=== PATIENT | female | born 1950 | race Caucasian/White ===

== ENCOUNTER 2017-06-11 05:58 | Outpatient (RCR) | payer MEDICARE, MEDICAID ==
[2015-09-18 10:56] VITALS: BMI 42.7
[~2017-06-11 05:58] MED LIST: ACET-2043 PO; ALBU1.257 IH; ALBU2.5V36 NEB; ALPH1TAB PO; ALPH300T PO; ALPHA D GALACTOSIDASE PO; AMLO-96 PO; ASCO-201 PO; ASCO500C9 PO; ASPI-870 CHEW; ASPI81TA15 PO; ASPI81TA94 PO; AURYXIA PO; AZIT-18 PO; BUM2 PO; BUME1TAB19 PO; CAL25 PO; CAL667 PO; CALC0.2522 PO; CALC600T82 PO; CALC667T3 PO; CAR6.25 PO; CEFD300C35 PO; CHOL100062 PO; CHOL200021 PO; CHOL200022 PO; CIP500 PO; CIPDEXPT RIGHT EAR; CIPR-344 PO; CIPR500S3 PO; CRAN500T2 PO; CYAN100017; CYAN100088 PO; CYAN1TAB44 PO; CYAN25004; DEXTROSE 50% 50 ML SYR IVP PRN; DIA5 PO; DIAZ-308 PO; DIAZ2TAB74 PO; DOC100 PO; ERGO500025 PO; ESOM40CA42 PO; FERR210T; FISH OIL 500 M500 MG PO; FURO40TA35 PO; GOLYTE PO; GUAI600T57 PO; HYDR-3140 PO; HYDR-385 PO; HYDR2TAB74 PO; IBUP-136 PO; INSU100C12 SQ; INSU100I30 SQ; INSU100I30 SUBQ; INSU100I35 SQ; KRIL1CAP4 PO; LANT10002 PO; LID5T; LOPERAMIDE HCL 2 MG CAP PO PRN; LOR5/325 PO; MAGN400T37 PO; METH-543 PO; METH1TAB PO; METO25TA23 PO; MIDO5TAB20 PO; MULT-859 PO; MULT1TAB64 PO; NIT100 GT; NITR50CA35 PO; NOVOLOG SC; OMEG-24 PO; OMEG-36 PO; OMEG1CAP85 PO; OMEG500C5 PO; OMEG500C7 PO; OMEP-218 PO; OMEP20CA68 PO; ONDA4TAB PO; ONDA4TAB97 PO; OXYC-869 PO; OXYGENHOME INH; PRAV20TA66 PO; PRE50 PO; PRED-1 PO; PREG75CA60 PO; PROMETHAZINE HCL 25 MG TAB PO PRN; SEVE800T16 PO; SIM80 PO; SITA100T9 PO; SODI650T7 PO; SUCR500T PO; VITA-131 PO; VITA-175 PO; VITA400T PO; [UNRECOGNIZED DRUG - CODE] OU; [UNRECOGNIZED DRUG - CODE] PO; [UNRECOGNIZED DRUG - OTHER] PO
[2017-06-11] MEDS: HEPARIN (PORCINE) 1000 UNIT/ML (DIALYSIS) IVP PRN ×2 (10:51→10:52)
[2017-06-13] MEDS: HEPARIN (PORCINE) 1000 UNIT/ML (DIALYSIS) IVP PRN ×2 (10:49)
[2017-06-15] MEDS: HEPARIN (PORCINE) 1000 UNIT/ML (DIALYSIS) IVP PRN ×2 (11:01)
[2017-06-15] MEDS: DARBEPOETIN ESRD 25 MCG/ML IVP PRN (12:14)
[2017-06-18] MEDS: HEPARIN (PORCINE) 1000 UNIT/ML (DIALYSIS) IVP PRN ×2 (11:08)
[2017-06-20] MEDS: HEPARIN (PORCINE) 1000 UNIT/ML (DIALYSIS) IVP PRN ×2 (10:56)
[2017-06-22] MEDS: HEPARIN (PORCINE) 1000 UNIT/ML (DIALYSIS) IVP PRN ×2 (10:50→10:51)
[2017-06-25] MEDS: HEPARIN (PORCINE) 1000 UNIT/ML (DIALYSIS) IVP PRN ×2 (10:44→10:45)
[2017-06-27] MEDS: HEPARIN (PORCINE) 1000 UNIT/ML (DIALYSIS) IVP PRN ×2 (10:47)
[2017-06-27 12:02] LABS: PLATELET COUNT, AUTOMATED 114 K/uL (150-450)
[2017-06-29] MEDS: HEPARIN (PORCINE) 1000 UNIT/ML (DIALYSIS) IVP PRN ×2 (10:43)
[2017-06-29] MEDS: DARBEPOETIN ESRD 25 MCG/ML IVP PRN (11:31)
[2017-07-02] MEDS: HEPARIN (PORCINE) 1000 UNIT/ML (DIALYSIS) IVP PRN ×2 (10:51)
[2017-07-04] MEDS: HEPARIN (PORCINE) 1000 UNIT/ML (DIALYSIS) IVP PRN ×2 (10:43)
[2017-07-06] MEDS: HEPARIN (PORCINE) 1000 UNIT/ML (DIALYSIS) IVP PRN ×2 (10:43)
[2017-07-09] MEDS: HEPARIN (PORCINE) 1000 UNIT/ML (DIALYSIS) IVP PRN ×2 (10:48→10:49)
[2017-07-11] MEDS: HEPARIN (PORCINE) 1000 UNIT/ML (DIALYSIS) IVP PRN ×2 (10:48)
[2017-07-12] MEDS ORDERED: OXYC-865 PO (08:37)
[2017-07-25] MEDS: HEPARIN (PORCINE) 1000 UNIT/ML (DIALYSIS) IVP PRN ×2 (13:53)
[2017-07-27] MEDS: HEPARIN (PORCINE) 1000 UNIT/ML (DIALYSIS) IVP PRN ×2 (13:34→13:35)
[2017-07-27] MEDS: DARBEPOETIN ESRD 100 MCG/0.5ML SYR IVP PRN (14:00)
[2017-07-30] MEDS: HEPARIN (PORCINE) 1000 UNIT/ML (DIALYSIS) IVP PRN ×2 (12:13)
[2017-08-01] MEDS: HEPARIN (PORCINE) 1000 UNIT/ML (DIALYSIS) IVP PRN ×2 (12:16)
[2017-08-01 12:47] LABS: PLATELET COUNT, AUTOMATED 221 K/uL (150-450)
[2017-08-03] MEDS: HEPARIN (PORCINE) 1000 UNIT/ML (DIALYSIS) IVP PRN ×2 (12:09)
[2017-08-03] MEDS: DARBEPOETIN ESRD 100 MCG/0.5ML SYR IVP PRN (12:24)
[2017-08-06] MEDS: HEPARIN (PORCINE) 1000 UNIT/ML (DIALYSIS) IVP PRN ×2 (11:51)
[2017-08-08] MEDS: HEPARIN (PORCINE) 1000 UNIT/ML (DIALYSIS) IVP PRN ×2 (11:55)
[2017-08-10] MEDS: HEPARIN (PORCINE) 1000 UNIT/ML (DIALYSIS) IVP PRN ×2 (12:09→12:10)
[2017-08-10] MEDS: DARBEPOETIN ESRD 100 MCG/0.5ML SYR IVP PRN (13:06)
[2017-08-13] MEDS: HEPARIN (PORCINE) 1000 UNIT/ML (DIALYSIS) IVP PRN ×2 (12:01)
[2017-08-15] MEDS ORDERED: PREG25 PO (10:56)
[2017-08-15] MEDS: HEPARIN (PORCINE) 1000 UNIT/ML (DIALYSIS) IVP PRN ×2 (12:01)
[2017-08-17] MEDS: HEPARIN (PORCINE) 1000 UNIT/ML (DIALYSIS) IVP PRN ×2 (10:50→10:51)
[2017-08-17] MEDS: DARBEPOETIN ESRD 100 MCG/0.5ML SYR IVP PRN (11:30)
[2017-08-20] MEDS: HEPARIN (PORCINE) 1000 UNIT/ML (DIALYSIS) IVP PRN ×2 (11:11→11:12)
[2017-08-22] MEDS: HEPARIN (PORCINE) 1000 UNIT/ML (DIALYSIS) IVP PRN ×2 (10:53)
[2017-08-24] MEDS: HEPARIN (PORCINE) 1000 UNIT/ML (DIALYSIS) IVP PRN ×2 (10:45)
[2017-08-24] MEDS: DARBEPOETIN ESRD 100 MCG/0.5ML SYR IVP PRN (11:52)
[2017-08-27] MEDS: HEPARIN (PORCINE) 1000 UNIT/ML (DIALYSIS) IVP PRN ×2 (11:01)
[2017-08-29] MEDS: HEPARIN (PORCINE) 1000 UNIT/ML (DIALYSIS) IVP PRN ×2 (11:08)
[2017-08-29 11:36] LABS: PLATELET COUNT, AUTOMATED 158 K/uL (150-450)
[2017-08-31] MEDS: HEPARIN (PORCINE) 1000 UNIT/ML (DIALYSIS) IVP PRN ×2 (11:19→11:20)
[2017-08-31] MEDS: DARBEPOETIN ESRD 25 MCG/ML IVP PRN (12:21)
[2017-09-03] MEDS: HEPARIN (PORCINE) 1000 UNIT/ML (DIALYSIS) IVP PRN ×2 (11:01→11:02)
[2017-09-05] MEDS: HEPARIN (PORCINE) 1000 UNIT/ML (DIALYSIS) IVP PRN ×2 (11:14)
[2017-09-07] MEDS: HEPARIN (PORCINE) 1000 UNIT/ML (DIALYSIS) IVP PRN ×2 (11:09)
[2017-09-07] MEDS: DARBEPOETIN ESRD 25 MCG/ML IVP PRN (12:09)
[2017-09-10] MEDS: HEPARIN (PORCINE) 1000 UNIT/ML (DIALYSIS) IVP PRN ×2 (11:10→11:11)
[2017-09-12] MEDS: HEPARIN (PORCINE) 1000 UNIT/ML (DIALYSIS) IVP PRN ×2 (11:07→11:08)
[2017-09-14] MEDS: HEPARIN (PORCINE) 1000 UNIT/ML (DIALYSIS) IVP PRN ×2 (11:05→11:06)
[2017-09-17] MEDS: HEPARIN (PORCINE) 1000 UNIT/ML (DIALYSIS) IVP PRN ×2 (11:10→11:11)
[2017-09-19] MEDS: HEPARIN (PORCINE) 1000 UNIT/ML (DIALYSIS) IVP PRN ×2 (11:15)
[2017-09-21] MEDS: HEPARIN (PORCINE) 1000 UNIT/ML (DIALYSIS) IVP PRN ×2 (11:20)
[2017-09-24] MEDS: HEPARIN (PORCINE) 1000 UNIT/ML (DIALYSIS) IVP PRN ×2 (11:09→11:10)
[2017-09-26] MEDS: HEPARIN (PORCINE) 1000 UNIT/ML (DIALYSIS) IVP PRN ×2 (11:12)
[2017-09-26 11:45] LABS: PLATELET COUNT, AUTOMATED 130 K/uL (150-450)
[2017-09-28] MEDS: HEPARIN (PORCINE) 1000 UNIT/ML (DIALYSIS) IVP PRN ×2 (11:08)
[2017-10-01] MEDS: HEPARIN (PORCINE) 1000 UNIT/ML (DIALYSIS) IVP PRN ×2 (10:55)
[2017-10-03] MEDS: HEPARIN (PORCINE) 1000 UNIT/ML (DIALYSIS) IVP PRN ×2 (11:02)
[2017-10-03] MEDS: SODIUM FERRIC GLUC 62.5 MG/5ML IVP PRN (13:31)
[2017-10-05] MEDS: HEPARIN (PORCINE) 1000 UNIT/ML (DIALYSIS) IVP PRN ×2 (11:09)
[2017-10-08] MEDS: HEPARIN (PORCINE) 1000 UNIT/ML (DIALYSIS) IVP PRN ×2 (11:16)
[2017-10-10] MEDS: HEPARIN (PORCINE) 1000 UNIT/ML (DIALYSIS) IVP PRN ×2 (11:11)
[2017-10-12] MEDS: HEPARIN (PORCINE) 1000 UNIT/ML (DIALYSIS) IVP PRN ×2 (11:06)
[2017-10-15] MEDS: HEPARIN (PORCINE) 1000 UNIT/ML (DIALYSIS) IVP PRN ×2 (11:16)
[2017-10-17] MEDS: HEPARIN (PORCINE) 1000 UNIT/ML (DIALYSIS) IVP PRN ×2 (11:23)
[2017-10-17 12:33] LABS: PLATELET COUNT, AUTOMATED 113 K/uL (150-450)
[2017-10-17] MEDS: SODIUM FERRIC GLUC 62.5 MG/5ML IVP PRN (12:56)
[2017-10-19] MEDS: HEPARIN (PORCINE) 1000 UNIT/ML (DIALYSIS) IVP PRN ×2 (11:23)
[2017-10-22] MEDS: HEPARIN (PORCINE) 1000 UNIT/ML (DIALYSIS) IVP PRN ×2 (11:16→11:17)
[2017-10-24] MEDS: HEPARIN (PORCINE) 1000 UNIT/ML (DIALYSIS) IVP PRN ×2 (11:08)
[2017-10-26] MEDS: HEPARIN (PORCINE) 1000 UNIT/ML (DIALYSIS) IVP PRN ×2 (11:15)
[2017-10-29] MEDS: HEPARIN (PORCINE) 1000 UNIT/ML (DIALYSIS) IVP PRN ×2 (11:06→11:07)
[2017-10-31] MEDS: HEPARIN (PORCINE) 1000 UNIT/ML (DIALYSIS) IVP PRN ×2 (11:03)
[2017-10-31] MEDS: SODIUM FERRIC GLUC 62.5 MG/5ML IVP PRN (12:29)
[2017-11-02] MEDS: HEPARIN (PORCINE) 1000 UNIT/ML (DIALYSIS) IVP PRN ×2 (11:10→11:11)
[2017-11-05] MEDS: HEPARIN (PORCINE) 1000 UNIT/ML (DIALYSIS) IVP PRN ×2 (11:13)
[2017-11-07] MEDS: HEPARIN (PORCINE) 1000 UNIT/ML (DIALYSIS) IVP PRN ×2 (11:11)
[2017-11-09] MEDS: HEPARIN (PORCINE) 1000 UNIT/ML (DIALYSIS) IVP PRN ×2 (11:00)
[2017-11-09] MEDS: DARBEPOETIN ESRD 25 MCG/ML IVP PRN (13:04)
[2017-11-12] MEDS: HEPARIN (PORCINE) 1000 UNIT/ML (DIALYSIS) IVP PRN ×2 (11:01)
[2017-11-14] MEDS: HEPARIN (PORCINE) 1000 UNIT/ML (DIALYSIS) IVP PRN ×2 (10:58)
[2017-11-14] MEDS: SODIUM FERRIC GLUC 62.5 MG/5ML IVP PRN (12:25)
[2017-11-16] MEDS: HEPARIN (PORCINE) 1000 UNIT/ML (DIALYSIS) IVP PRN ×2 (11:10)
[2017-11-19] MEDS: HEPARIN (PORCINE) 1000 UNIT/ML (DIALYSIS) IVP PRN ×2 (11:07)
[2017-11-21] MEDS: HEPARIN (PORCINE) 1000 UNIT/ML (DIALYSIS) IVP PRN ×2 (10:59→11:00)
[2017-11-21 13:25] LABS: PLATELET COUNT, AUTOMATED 116 K/uL (150-450)
[2017-11-23] MEDS: HEPARIN (PORCINE) 1000 UNIT/ML (DIALYSIS) IVP PRN ×2 (11:19)
[2017-11-23] MEDS: DARBEPOETIN ESRD 25 MCG/ML IVP PRN (12:30)
[2017-11-26] MEDS: HEPARIN (PORCINE) 1000 UNIT/ML (DIALYSIS) IVP PRN ×2 (11:10)
== END 2017-11-26 12:00 | disposition home or self-care (01) ==
LOC: DIAL 05:58
PROVIDERS: ATTEND Internal Medicine Nephrology
DX: I13.2 Hypertensive heart and chronic kidney disease with heart failure and with stage 5 chronic kidney disease, or end stage renal disease (principal); N18.6 End stage renal disease; I95.3 Hypotension of hemodialysis; D63.1 Anemia in chronic kidney disease; I50.30 Unspecified diastolic (congestive) heart failure; Z93.3 Colostomy status; N25.81 Secondary hyperparathyroidism of renal origin; E46 Unspecified protein-calorie malnutrition; E66.9 Obesity, unspecified; Z99.2 Dependence on renal dialysis; Z68.38 Body mass index [BMI] 38.0-38.9, adult; G47.33 Obstructive sleep apnea (adult) (pediatric); E11.22 Type 2 diabetes mellitus with diabetic chronic kidney disease; Z79.4 Long term (current) use of insulin
CPT/HCPCS: 82040; 82108; 82247; 82310; 82374; 82465; 82565; 82728; 82947; 83036; 83540; 83550; 83970; 84075; 84100; 84132; 84295; 84460; 84478; 84520; 85018; 85025; 86580; 86706; 87340; 90999; A4657; G0472; J0882; J2916; 86803

== ENCOUNTER → 2017-06-11 09:26 | Outpatient (RCR) | payer MEDICARE, MEDICAID ==
[2015-09-18 10:56] VITALS: Ht 160 cm; Wt 101.9 kg
[2016-06-12] MEDS: HEPARIN (PORCINE) 1000 UNIT/ML (DIALYSIS) IVP PRN ×2 (13:33)
[2016-06-14] MEDS: HEPARIN (PORCINE) 1000 UNIT/ML (DIALYSIS) IVP PRN ×2 (13:30)
[2016-06-16] MEDS: HEPARIN (PORCINE) 1000 UNIT/ML (DIALYSIS) IVP PRN ×2 (13:24→13:25)
[2016-06-19] MEDS: HEPARIN (PORCINE) 1000 UNIT/ML (DIALYSIS) IVP PRN ×2 (13:36)
[2016-06-21] MEDS: HEPARIN (PORCINE) 1000 UNIT/ML (DIALYSIS) IVP PRN ×2 (13:31→13:32)
[2016-06-21 14:51] LABS: PLATELET COUNT, AUTOMATED 146 K/uL (150-450)
[2016-06-23] MEDS: HEPARIN (PORCINE) 1000 UNIT/ML (DIALYSIS) IVP PRN ×2 (13:35)
[2016-06-26] MEDS: HEPARIN (PORCINE) 1000 UNIT/ML (DIALYSIS) IVP PRN ×2 (13:39)
[2016-06-28] MEDS: HEPARIN (PORCINE) 1000 UNIT/ML (DIALYSIS) IVP PRN ×2 (13:33)
[2016-06-30] MEDS: HEPARIN (PORCINE) 1000 UNIT/ML (DIALYSIS) IVP PRN ×2 (13:35)
[2016-07-03] MEDS: HEPARIN (PORCINE) 1000 UNIT/ML (DIALYSIS) IVP PRN ×2 (13:55)
[2016-07-05] MEDS: HEPARIN (PORCINE) 1000 UNIT/ML (DIALYSIS) IVP PRN ×2 (13:58)
[2016-07-07] MEDS: HEPARIN (PORCINE) 1000 UNIT/ML (DIALYSIS) IVP PRN ×2 (13:23)
[2016-07-10] MEDS: HEPARIN (PORCINE) 1000 UNIT/ML (DIALYSIS) IVP PRN ×2 (13:33→13:34)
[2016-07-12] MEDS: HEPARIN (PORCINE) 1000 UNIT/ML (DIALYSIS) IVP PRN ×2 (13:41)
[2016-07-14] MEDS: HEPARIN (PORCINE) 1000 UNIT/ML (DIALYSIS) IVP PRN ×2 (13:33)
[2016-07-17] MEDS: HEPARIN (PORCINE) 1000 UNIT/ML (DIALYSIS) IVP PRN ×2 (13:56)
[2016-07-19] MEDS: HEPARIN (PORCINE) 1000 UNIT/ML (DIALYSIS) IVP PRN ×2 (13:38→13:39)
[2016-07-21] MEDS: HEPARIN (PORCINE) 1000 UNIT/ML (DIALYSIS) IVP PRN ×2 (13:32)
[2016-07-24] MEDS: HEPARIN (PORCINE) 1000 UNIT/ML (DIALYSIS) IVP PRN ×2 (13:37→13:38)
[2016-07-26] MEDS: HEPARIN (PORCINE) 1000 UNIT/ML (DIALYSIS) IVP PRN ×2 (14:08)
[2016-07-26 15:14] LABS: PLATELET COUNT, AUTOMATED 163 K/uL (150-450)
[2016-07-28] MEDS: HEPARIN (PORCINE) 1000 UNIT/ML (DIALYSIS) IVP PRN ×2 (13:29)
[2016-07-31] MEDS: HEPARIN (PORCINE) 1000 UNIT/ML (DIALYSIS) IVP PRN ×2 (13:32)
[2016-08-02] MEDS: HEPARIN (PORCINE) 1000 UNIT/ML (DIALYSIS) IVP PRN ×2 (13:25)
[2016-08-04] MEDS: HEPARIN (PORCINE) 1000 UNIT/ML (DIALYSIS) IVP PRN ×2 (13:31)
[2016-08-07] MEDS: HEPARIN (PORCINE) 1000 UNIT/ML (DIALYSIS) IVP PRN ×2 (13:36)
[2016-08-09] MEDS: HEPARIN (PORCINE) 1000 UNIT/ML (DIALYSIS) IVP PRN ×2 (13:40)
[2016-08-11] MEDS: HEPARIN (PORCINE) 1000 UNIT/ML (DIALYSIS) IVP PRN ×2 (13:31)
[2016-08-14] MEDS: HEPARIN (PORCINE) 1000 UNIT/ML (DIALYSIS) IVP PRN ×2 (13:29)
[2016-08-16] MEDS: HEPARIN (PORCINE) 1000 UNIT/ML (DIALYSIS) IVP PRN ×2 (13:33→13:34)
[2016-08-18] MEDS: HEPARIN (PORCINE) 1000 UNIT/ML (DIALYSIS) IVP PRN ×2 (13:44)
[2016-08-21] MEDS: HEPARIN (PORCINE) 1000 UNIT/ML (DIALYSIS) IVP PRN ×2 (13:42)
[2016-08-23] MEDS: HEPARIN (PORCINE) 1000 UNIT/ML (DIALYSIS) IVP PRN ×2 (13:48→13:49)
[2016-08-23 14:33] LABS: PLATELET COUNT, AUTOMATED 155 K/uL (150-450)
[2016-08-25] MEDS: HEPARIN (PORCINE) 1000 UNIT/ML (DIALYSIS) IVP PRN ×2 (13:28→13:29)
[2016-08-28] MEDS: HEPARIN (PORCINE) 1000 UNIT/ML (DIALYSIS) IVP PRN ×2 (13:25)
[2016-08-30] MEDS: HEPARIN (PORCINE) 1000 UNIT/ML (DIALYSIS) IVP PRN ×2 (13:40)
[2016-09-01] MEDS: HEPARIN (PORCINE) 1000 UNIT/ML (DIALYSIS) IVP PRN ×2 (13:32→13:33)
[2016-09-04] MEDS: HEPARIN (PORCINE) 1000 UNIT/ML (DIALYSIS) IVP PRN ×2 (13:27)
[2016-09-06] MEDS: HEPARIN (PORCINE) 1000 UNIT/ML (DIALYSIS) IVP PRN ×2 (13:35)
[2016-09-08] MEDS: HEPARIN (PORCINE) 1000 UNIT/ML (DIALYSIS) IVP PRN ×2 (13:52)
[2016-09-11] MEDS: HEPARIN (PORCINE) 1000 UNIT/ML (DIALYSIS) IVP PRN ×2 (14:01→14:02)
[2016-09-13] MEDS: HEPARIN (PORCINE) 1000 UNIT/ML (DIALYSIS) IVP PRN ×2 (13:47)
[2016-09-15] MEDS: HEPARIN (PORCINE) 1000 UNIT/ML (DIALYSIS) IVP PRN ×2 (13:41)
[2016-09-18] MEDS: HEPARIN (PORCINE) 1000 UNIT/ML (DIALYSIS) IVP PRN ×2 (13:42→13:43)
[2016-09-20] MEDS: HEPARIN (PORCINE) 1000 UNIT/ML (DIALYSIS) IVP PRN ×2 (13:36)
[2016-09-22] MEDS: HEPARIN (PORCINE) 1000 UNIT/ML (DIALYSIS) IVP PRN ×2 (13:35)
[2016-09-25] MEDS: HEPARIN (PORCINE) 1000 UNIT/ML (DIALYSIS) IVP PRN ×2 (13:30→13:31)
[2016-09-27] MEDS: HEPARIN (PORCINE) 1000 UNIT/ML (DIALYSIS) IVP PRN ×2 (10:47)
[2016-09-27 11:58] LABS: PLATELET COUNT, AUTOMATED 151 K/uL (150-450)
[2016-09-29] MEDS: HEPARIN (PORCINE) 1000 UNIT/ML (DIALYSIS) IVP PRN ×2 (11:27)
[2016-10-02] MEDS: HEPARIN (PORCINE) 1000 UNIT/ML (DIALYSIS) IVP PRN ×2 (13:35→13:36)
[2016-10-04] MEDS: HEPARIN (PORCINE) 1000 UNIT/ML (DIALYSIS) IVP PRN ×2 (13:41)
[2016-10-06] MEDS: HEPARIN (PORCINE) 1000 UNIT/ML (DIALYSIS) IVP PRN ×2 (13:38)
[2016-10-09] MEDS: HEPARIN (PORCINE) 1000 UNIT/ML (DIALYSIS) IVP PRN ×2 (13:36)
[2016-10-11] MEDS: HEPARIN (PORCINE) 1000 UNIT/ML (DIALYSIS) IVP PRN ×2 (13:41)
[2016-10-13] MEDS: HEPARIN (PORCINE) 1000 UNIT/ML (DIALYSIS) IVP PRN ×2 (13:31)
[2016-10-16] MEDS: HEPARIN (PORCINE) 1000 UNIT/ML (DIALYSIS) IVP PRN ×2 (13:44)
[2016-10-18] MEDS: HEPARIN (PORCINE) 1000 UNIT/ML (DIALYSIS) IVP PRN ×2 (13:40→13:41)
[2016-10-20] MEDS: HEPARIN (PORCINE) 1000 UNIT/ML (DIALYSIS) IVP PRN ×2 (13:35)
[2016-10-23] MEDS: HEPARIN (PORCINE) 1000 UNIT/ML (DIALYSIS) IVP PRN ×2 (13:08)
[2016-10-25] MEDS: HEPARIN (PORCINE) 1000 UNIT/ML (DIALYSIS) IVP PRN ×2 (13:02)
[2016-10-27] MEDS: HEPARIN (PORCINE) 1000 UNIT/ML (DIALYSIS) IVP PRN ×2 (09:53→09:54)
[2016-10-30] MEDS: HEPARIN (PORCINE) 1000 UNIT/ML (DIALYSIS) IVP PRN ×2 (13:28→13:29)
[2016-11-01] MEDS: HEPARIN (PORCINE) 1000 UNIT/ML (DIALYSIS) IVP PRN ×2 (13:25)
[2016-11-01 14:27] LABS: PLATELET COUNT, AUTOMATED 159 K/uL (150-450)
[2016-11-03] MEDS: HEPARIN (PORCINE) 1000 UNIT/ML (DIALYSIS) IVP PRN ×2 (14:59)
[2016-11-06] MEDS: HEPARIN (PORCINE) 1000 UNIT/ML (DIALYSIS) IVP PRN ×2 (10:05)
[2016-11-08] MEDS: HEPARIN (PORCINE) 1000 UNIT/ML (DIALYSIS) IVP PRN ×2 (10:12)
[2016-11-10] MEDS: HEPARIN (PORCINE) 1000 UNIT/ML (DIALYSIS) IVP PRN ×2 (09:52)
[2016-11-13] MEDS: HEPARIN (PORCINE) 1000 UNIT/ML (DIALYSIS) IVP PRN ×2 (10:01)
[2016-11-15] MEDS: HEPARIN (PORCINE) 1000 UNIT/ML (DIALYSIS) IVP PRN ×2 (10:15)
[2016-11-17] MEDS: HEPARIN (PORCINE) 1000 UNIT/ML (DIALYSIS) IVP PRN ×2 (10:11)
[2016-11-20] MEDS: HEPARIN (PORCINE) 1000 UNIT/ML (DIALYSIS) IVP PRN ×2 (10:09)
[2016-11-22] MEDS: HEPARIN (PORCINE) 1000 UNIT/ML (DIALYSIS) IVP PRN ×2 (10:19)
[2016-11-22 10:54] LABS: PLATELET COUNT, AUTOMATED 133 K/uL (150-450)
[2016-11-24] MEDS: HEPARIN (PORCINE) 1000 UNIT/ML (DIALYSIS) IVP PRN ×2 (10:16→10:20)
[2016-11-27] MEDS: HEPARIN (PORCINE) 1000 UNIT/ML (DIALYSIS) IVP PRN ×2 (10:10)
[2016-11-29] MEDS: HEPARIN (PORCINE) 1000 UNIT/ML (DIALYSIS) IVP PRN ×2 (10:21)
[2016-12-18] MEDS: HEPARIN (PORCINE) 1000 UNIT/ML (DIALYSIS) IVP PRN ×2 (10:13→10:14)
[2016-12-20] MEDS: HEPARIN (PORCINE) 1000 UNIT/ML (DIALYSIS) IVP PRN ×2 (10:14)
[2016-12-22] MEDS: HEPARIN (PORCINE) 1000 UNIT/ML (DIALYSIS) IVP PRN ×2 (10:13)
[2016-12-25] MEDS: HEPARIN (PORCINE) 1000 UNIT/ML (DIALYSIS) IVP PRN ×2 (10:21)
[2016-12-27] MEDS: HEPARIN (PORCINE) 1000 UNIT/ML (DIALYSIS) IVP PRN ×2 (10:13)
[2016-12-27 10:55] LABS: PLATELET COUNT, AUTOMATED 147 K/uL (150-450)
[2016-12-29] MEDS: HEPARIN (PORCINE) 1000 UNIT/ML (DIALYSIS) IVP PRN ×2 (10:15)
[2017-01-01] MEDS: HEPARIN (PORCINE) 1000 UNIT/ML (DIALYSIS) IVP PRN ×2 (10:12)
[2017-01-03] MEDS: HEPARIN (PORCINE) 1000 UNIT/ML (DIALYSIS) IVP PRN ×2 (10:17→10:18)
[2017-01-05] MEDS: HEPARIN (PORCINE) 1000 UNIT/ML (DIALYSIS) IVP PRN ×2 (10:05→10:06)
[2017-01-08] MEDS: HEPARIN (PORCINE) 1000 UNIT/ML (DIALYSIS) IVP PRN ×2 (10:09)
[2017-01-10] MEDS: HEPARIN (PORCINE) 1000 UNIT/ML (DIALYSIS) IVP PRN ×2 (10:20→10:21)
[2017-01-12] MEDS: HEPARIN (PORCINE) 1000 UNIT/ML (DIALYSIS) IVP PRN ×2 (10:15→10:16)
[2017-01-12] MEDS: DARBEPOETIN ESRD 25 MCG/ML IVP PRN (13:01)
[2017-01-15] MEDS: HEPARIN (PORCINE) 1000 UNIT/ML (DIALYSIS) IVP PRN ×2 (10:13→10:14)
[2017-01-17] MEDS: HEPARIN (PORCINE) 1000 UNIT/ML (DIALYSIS) IVP PRN ×2 (10:12)
[2017-01-19] MEDS: HEPARIN (PORCINE) 1000 UNIT/ML (DIALYSIS) IVP PRN ×2 (10:08)
[2017-01-19] MEDS: DARBEPOETIN ESRD 25 MCG/ML IVP PRN (10:40)
[2017-01-22] MEDS: HEPARIN (PORCINE) 1000 UNIT/ML (DIALYSIS) IVP PRN ×2 (10:15)
[2017-01-24] MEDS: HEPARIN (PORCINE) 1000 UNIT/ML (DIALYSIS) IVP PRN ×2 (10:20)
[2017-01-24 11:04] LABS: PLATELET COUNT, AUTOMATED 119 K/uL (150-450)
[2017-01-26] MEDS: HEPARIN (PORCINE) 1000 UNIT/ML (DIALYSIS) IVP PRN ×2 (10:19)
[2017-01-29] MEDS: HEPARIN (PORCINE) 1000 UNIT/ML (DIALYSIS) IVP PRN ×2 (10:06)
[2017-01-31] MEDS: HEPARIN (PORCINE) 1000 UNIT/ML (DIALYSIS) IVP PRN ×2 (10:22)
[2017-02-02] MEDS: HEPARIN (PORCINE) 1000 UNIT/ML (DIALYSIS) IVP PRN ×2 (10:16)
[2017-02-02] MEDS: DARBEPOETIN ESRD 25 MCG/ML IVP PRN (10:57)
[2017-02-05] MEDS: HEPARIN (PORCINE) 1000 UNIT/ML (DIALYSIS) IVP PRN ×2 (10:14→10:15)
[2017-02-07] MEDS: HEPARIN (PORCINE) 1000 UNIT/ML (DIALYSIS) IVP PRN ×2 (10:08)
[2017-02-09] MEDS: HEPARIN (PORCINE) 1000 UNIT/ML (DIALYSIS) IVP PRN ×2 (10:21)
[2017-02-12] MEDS: HEPARIN (PORCINE) 1000 UNIT/ML (DIALYSIS) IVP PRN ×2 (10:09)
[2017-02-14] MEDS: HEPARIN (PORCINE) 1000 UNIT/ML (DIALYSIS) IVP PRN ×2 (10:12→10:13)
[2017-02-16] MEDS: HEPARIN (PORCINE) 1000 UNIT/ML (DIALYSIS) IVP PRN ×2 (10:11)
[2017-02-16] MEDS: DARBEPOETIN ESRD 25 MCG/ML IVP PRN (11:57)
[2017-02-19] MEDS: HEPARIN (PORCINE) 1000 UNIT/ML (DIALYSIS) IVP PRN ×2 (10:09→10:10)
[2017-02-21] MEDS: HEPARIN (PORCINE) 1000 UNIT/ML (DIALYSIS) IVP PRN ×2 (10:11)
[2017-02-21 10:36] LABS: PLATELET COUNT, AUTOMATED 164 K/uL (150-450)
[2017-02-23] MEDS: HEPARIN (PORCINE) 1000 UNIT/ML (DIALYSIS) IVP PRN ×2 (10:17)
[2017-02-26] MEDS: HEPARIN (PORCINE) 1000 UNIT/ML (DIALYSIS) IVP PRN ×2 (10:11)
[2017-02-28] MEDS: HEPARIN (PORCINE) 1000 UNIT/ML (DIALYSIS) IVP PRN ×2 (10:10)
[2017-03-02] MEDS: HEPARIN (PORCINE) 1000 UNIT/ML (DIALYSIS) IVP PRN ×2 (10:12)
[2017-03-05] MEDS: HEPARIN (PORCINE) 1000 UNIT/ML (DIALYSIS) IVP PRN ×2 (10:13)
[2017-03-07] MEDS: HEPARIN (PORCINE) 1000 UNIT/ML (DIALYSIS) IVP PRN ×2 (10:05)
[2017-03-09] MEDS: HEPARIN (PORCINE) 1000 UNIT/ML (DIALYSIS) IVP PRN ×2 (10:21→10:22)
[2017-03-12] MEDS: HEPARIN (PORCINE) 1000 UNIT/ML (DIALYSIS) IVP PRN ×2 (10:15)
[2017-03-14] MEDS: HEPARIN (PORCINE) 1000 UNIT/ML (DIALYSIS) IVP PRN ×2 (11:48)
[2017-03-16] MEDS: HEPARIN (PORCINE) 1000 UNIT/ML (DIALYSIS) IVP PRN ×2 (12:08→12:09)
[2017-03-19] MEDS: HEPARIN (PORCINE) 1000 UNIT/ML (DIALYSIS) IVP PRN ×2 (12:02)
[2017-03-21] MEDS: HEPARIN (PORCINE) 1000 UNIT/ML (DIALYSIS) IVP PRN ×2 (12:03)
[2017-03-23] MEDS: HEPARIN (PORCINE) 1000 UNIT/ML (DIALYSIS) IVP PRN ×2 (11:57)
[2017-03-26] MEDS: HEPARIN (PORCINE) 1000 UNIT/ML (DIALYSIS) IVP PRN ×2 (12:12)
[2017-03-28] MEDS: HEPARIN (PORCINE) 1000 UNIT/ML (DIALYSIS) IVP PRN ×2 (12:01)
[2017-03-28 12:45] LABS: PLATELET COUNT, AUTOMATED 126 K/uL (150-450)
[2017-03-30] MEDS: HEPARIN (PORCINE) 1000 UNIT/ML (DIALYSIS) IVP PRN ×2 (11:57)
[2017-04-02] MEDS: HEPARIN (PORCINE) 1000 UNIT/ML (DIALYSIS) IVP PRN ×2 (12:06)
[2017-04-04] MEDS: HEPARIN (PORCINE) 1000 UNIT/ML (DIALYSIS) IVP PRN ×2 (12:24)
[2017-04-06] MEDS: HEPARIN (PORCINE) 1000 UNIT/ML (DIALYSIS) IVP PRN ×2 (12:09→12:10)
[2017-04-09] MEDS: HEPARIN (PORCINE) 1000 UNIT/ML (DIALYSIS) IVP PRN ×2 (12:00)
[2017-04-11] MEDS: HEPARIN (PORCINE) 1000 UNIT/ML (DIALYSIS) IVP PRN ×2 (11:05)
[2017-04-13] MEDS: HEPARIN (PORCINE) 1000 UNIT/ML (DIALYSIS) IVP PRN ×2 (11:05→11:06)
[2017-04-16] MEDS: HEPARIN (PORCINE) 1000 UNIT/ML (DIALYSIS) IVP PRN ×2 (10:57)
[2017-04-18] MEDS: HEPARIN (PORCINE) 1000 UNIT/ML (DIALYSIS) IVP PRN ×2 (10:53)
[2017-04-20] MEDS: HEPARIN (PORCINE) 1000 UNIT/ML (DIALYSIS) IVP PRN ×2 (10:54)
[2017-04-23] MEDS: HEPARIN (PORCINE) 1000 UNIT/ML (DIALYSIS) IVP PRN ×2 (10:59)
[2017-04-25] MEDS: HEPARIN (PORCINE) 1000 UNIT/ML (DIALYSIS) IVP PRN ×2 (11:00)
[2017-04-27] MEDS: HEPARIN (PORCINE) 1000 UNIT/ML (DIALYSIS) IVP PRN ×2 (10:46)
[2017-04-30] MEDS: HEPARIN (PORCINE) 1000 UNIT/ML (DIALYSIS) IVP PRN ×2 (11:02)
[2017-05-02] MEDS: HEPARIN (PORCINE) 1000 UNIT/ML (DIALYSIS) IVP PRN ×2 (10:51)
[2017-05-02 12:16] LABS: PLATELET COUNT, AUTOMATED 136 K/uL (150-450)
[2017-05-05] MEDS: HEPARIN (PORCINE) 1000 UNIT/ML (DIALYSIS) IVP PRN ×2 (10:51)
[2017-05-07] MEDS: HEPARIN (PORCINE) 1000 UNIT/ML (DIALYSIS) IVP PRN ×2 (10:53)
[2017-05-09] MEDS: HEPARIN (PORCINE) 1000 UNIT/ML (DIALYSIS) IVP PRN ×2 (10:52)
[2017-05-11] MEDS: HEPARIN (PORCINE) 1000 UNIT/ML (DIALYSIS) IVP PRN ×2 (10:56→10:57)
[2017-05-14] MEDS: HEPARIN (PORCINE) 1000 UNIT/ML (DIALYSIS) IVP PRN ×2 (10:51)
[2017-05-16] MEDS: HEPARIN (PORCINE) 1000 UNIT/ML (DIALYSIS) IVP PRN ×2 (11:01)
[2017-05-16 11:40] LABS: PLATELET COUNT, AUTOMATED 124 K/uL (150-450)
[2017-05-18] MEDS: HEPARIN (PORCINE) 1000 UNIT/ML (DIALYSIS) IVP PRN ×2 (10:50→10:51)
[2017-05-21] MEDS: HEPARIN (PORCINE) 1000 UNIT/ML (DIALYSIS) IVP PRN ×2 (10:50)
[2017-05-23] MEDS: HEPARIN (PORCINE) 1000 UNIT/ML (DIALYSIS) IVP PRN ×2 (10:50)
[2017-05-25] MEDS: HEPARIN (PORCINE) 1000 UNIT/ML (DIALYSIS) IVP PRN ×2 (10:48)
[2017-05-28] MEDS: HEPARIN (PORCINE) 1000 UNIT/ML (DIALYSIS) IVP PRN ×2 (10:57)
[2017-05-30] MEDS: HEPARIN (PORCINE) 1000 UNIT/ML (DIALYSIS) IVP PRN ×2 (10:55)
[2017-06-01] MEDS: HEPARIN (PORCINE) 1000 UNIT/ML (DIALYSIS) IVP PRN ×2 (10:57)
[2017-06-03] MEDS: HEPARIN (PORCINE) 1000 UNIT/ML (DIALYSIS) IVP PRN ×2 (10:47)
[2017-06-06] MEDS: HEPARIN (PORCINE) 1000 UNIT/ML (DIALYSIS) IVP PRN ×2 (11:03)
[2017-06-08] MEDS: HEPARIN (PORCINE) 1000 UNIT/ML (DIALYSIS) IVP PRN ×2 (10:50)
[~2017-06-11] VITALS: Ht 160 cm; Wt 101.9 kg
[~2017-06-11 09:26] MED LIST changes: +ALTEPLASE RECOMB 2 MG VIAL IVP PRN; +ASPI-816 CHEW; -ASPI-870 CHEW; +DARBEPOETIN ESRD 25 MCG/ML IVP PRN; +HEPARIN (PORCINE) 1000 UNIT/ML (DIALYSIS) IVP PRN; -IBUP-136 PO; +IBUP200C71 PO; +INFLUENZA VIRUS VAC 0.5 ML SYR IM ONLY ONE; +WATER STERILE 10 ML VIAL IVP PRN; +[UNRECOGNIZED DRUG - OTHER] IVP PRN
== END | disposition home or self-care (01) ==
LOC: DIAL 06-09 08:44
PROVIDERS: ATTEND Internal Medicine Nephrology
DX: I13.2 Hypertensive heart and chronic kidney disease with heart failure and with stage 5 chronic kidney disease, or end stage renal disease (principal); N18.6 End stage renal disease; Z99.2 Dependence on renal dialysis; D63.1 Anemia in chronic kidney disease; I50.32 Chronic diastolic (congestive) heart failure; G47.33 Obstructive sleep apnea (adult) (pediatric); E83.39 Other disorders of phosphorus metabolism; E78.5 Hyperlipidemia, unspecified; Z79.899 Other long term (current) drug therapy; E46 Unspecified protein-calorie malnutrition; E83.52 Hypercalcemia; E11.29 Type 2 diabetes mellitus with other diabetic kidney complication; G60.3 Idiopathic progressive neuropathy; Z23 Encounter for immunization
CPT/HCPCS: 82040; 82108; 82247; 82310; 82374; 82465; 82565; 82728; 82947; 83036; 83540; 83550; 83970; 84075; 84100; 84132; 84295; 84460; 84478; 84520; 85018; 85025; 86580; 86706; 87340; 90999; A4657; G0008; G0472; J0882; Q2037; 86803; 90658; 90674

== ENCOUNTER → 2017-07-05 | Outpatient (CLI) | payer MEDICARE, MEDICAID ==
[2015-09-18 10:56] VITALS: BMI 42.7
[~2017-07-05] MED LIST changes: -ALTEPLASE RECOMB 2 MG VIAL IVP PRN; -DARBEPOETIN ESRD 25 MCG/ML IVP PRN; -DEXTROSE 50% 50 ML SYR IVP PRN; -HEPARIN (PORCINE) 1000 UNIT/ML (DIALYSIS) IVP PRN; -INFLUENZA VIRUS VAC 0.5 ML SYR IM ONLY ONE; -LOPERAMIDE HCL 2 MG CAP PO PRN; -PROMETHAZINE HCL 25 MG TAB PO PRN; -WATER STERILE 10 ML VIAL IVP PRN; -[UNRECOGNIZED DRUG - OTHER] IVP PRN
--- NOTE | 2017-07-05 14:16 | RADIOLOGY IMAGING REPORT ---
[place] [facility] [place] Lizbeth Madrdi : 1950 MR: [id number] V: [id number] EXAM DATE: ORDERING PHYSICIAN: SHARONA FOY TECHNOLOGIST: Location: [facility] Patient: Lizbeth Madrid : 1950 Visit/Account:[id number] Date of Sevice: 07/05/2017 Exam type: THORACIC SPINE 3 VIEWS History: Back pain over T3-4 Comparison: CT of the thoracic spine July 02, 2016 Findings: There is no evidence of acute fracture or subluxation in the thoracic spine. The upper thoracic spin e is not ideally visualized due to patient rotation on the lateral view. There appear to be at least moderate spondylotic changes in the visualized cervical spine. Moderate vascular calcifications are identified in the thoracic aorta. Extensive vascular calcination occasions also noted in the spleni c artery.. IMPRESSION: 1. No evidence of acute fracture or subluxation in the thoracic spine. If patient's pain continues CT or MR may be helpful Report Dictated By: Malathi Michel MD at 07/05/2017 2:08 PM Report E-Signed By: Malathi Michel MD at 07/05/2017 2:11 PM WSN:[email or web address]
== END ==
LOC: RAD 13:34
PROVIDERS: ATTEND Physician Assistant
DX: M54.14 Radiculopathy, thoracic region (principal)
CPT/HCPCS: 72072

== ENCOUNTER 2017-07-12 06:42 | Emergency (ER) | payer MEDICARE, MEDICAID ==
[2015-09-18 10:56] VITALS: Ht 160 cm; Wt 102.3 kg
[~2017-07-12] VITALS: Ht 160 cm; Wt 102.3 kg
[~2017-07-12 06:42] MED LIST changes: -OXYC-865 PO
--- NOTE | 2017-07-12 07:23 | ER Report ---
History and Physical Time Seen By MD: 07:01 Hx. of Stated Complaint: LEFT HIP PAIN, FELL WHILE STANDING TO GET OUT OF HER RECLINER. HPI/ROS CHIEF COMPLAINT: Left hip pain status post fall HISTORY OF PRESENT ILLNESS: Patient is a 66-year-old female who presents to the emergency department status post a fall while trying to ambulate away from her recliner this morning. The patient states he is no prior injury to her left hip or knee she does complain of pain to both the left hip and knee she states that she was getting out of a recliner using her walker was turning towards the left side when she fell. She did strike her head but did not lose consciousness. She is not on any anticoagulation. Patient has with range of motion of the hip. She denies any other injuries. He does have a history of chronic back pain. REVIEW OF SYSTEMS: Respiratory: No cough, no dyspnea. Cardiovascular: No chest pain, no palpitations. Gastrointestinal: No vomiting, no abdominal pain. Musculoskeletal: Chronic back pain, left hip and knee pain. Allergies: Coded Allergies: Gadolinium-Containing Contrast Medi (Verified Allergy, Severe, 07/12/17) Home Meds Active Scripts Oxycodone Hcl/Acetaminophen (PERCOCET 5-325 MG TABLET) 1 Each Tablet, 1 EACH PO Q6-8H for PAIN, #25 TAB 0 Refills Prov:BILLY WOOTEN MD 07/12/17 Acetaminophen (ACETAMINOPHEN) 500 Mg Tablet, 500 MG PO Q6H Y for PAIN, #50 TAB Prov:MARK PAYAN MD 09/08/15 Insulin Glargine,Hum.rec.anlog (LANTUS SOLOSTAR) 100 Unit/1 Ml Insuln.pen, 22 UNIT SUBQ QHS, #1 BOX Prov:MARK PAYAN MD 09/08/15 [[id number]] 1 EACH TAB No Conflict Check, 1 EACH PO TIDAC Y for PRN , #100 TAB Prov:MARK PAYAN MD 09/08/15 Reported Medications Calcium Acetate (CALCIUM ACETATE) 667 Mg Tablet, 668 MG PO TIDCF 05/09/17 Hydrocodone Bit/Acetaminophen (HYDROCODON-ACETAMINOPHEN 5-325) 1 Each Tablet, 1 EACH PO Q8H Y for PAIN, TAB 05/09/17 Calcium Acetate (CALCIUM ACETATE) 667 Mg Tablet, 1334 MG PO TIDCF 04/18/17 Bumetanide (BUMETANIDE) 1 Mg Tablet, 2 MG PO non dialysis days 02/14/17 Midodrine Hcl (MIDODRINE HCL) 5 Mg Tablet, 10 MG PO 3XW Take Sunday, Sunday, and Sunday before dialysis treatment 10/25/16 Krill Oil/[place]-3/Dha/Epa (OMEGA-3 KRILL OIL SOFTGEL) 1 Each Capsule, 1 EACH PO DAILY, CAPSULE 07/02/16 [place]-3 Fatty Acids/Fish Oil (OMEGA 3 FISH OIL SOFTGEL) 1 Each Capsule.dr, 1 EACH PO QDAY 07/02/16 Cranberry Extract (Cranberry) 500 Mg Tablet, 1 TAB PO QDAY 10/03/15 Pregabalin (LYRICA) 75 Mg Capsule, 75 MG PO BID, CAPSULE 09/03/15 Insulin Aspart (NOVOLOG FLEXPEN) 100 Unit/1 Ml Insuln.pen, 15-20 UNIT SQ sliding scale 08/17/15 Oxygen (OXYGEN) Inha, 2 L INH DAILY, L 2L AT NIGHT WITH CPAP 04/22/15 Multivitamin (MULTI VITAMIN DAILY) 1 Each Tablet, 1 EACH PO DAILY 04/29/14 Past Medical/Surgical History Past medical history for diabetes that is insulin-dependent, chronic pain back pain history of recurrent urinary tract infections Hx Smoking: No Smoking Status: Never Smoker Exposure to Second Hand Smoke?: No Hx Substance Use Disorder: No Hx Alcohol Use: No Constitutional Vital Sign - Last 24 Hours 07/12/17 07/12/17 07/12/17 07/12/17 06:47 06:48 06:57 07:27 Temp 97.4 Pulse 75 68 69 Resp 20 B/P (MAP) 110/43 (65) 110/43 Pulse Ox 95 97 99 O2 Delivery Room Air 07/12/17 07/12/17 07/12/17 07/12/17 07:42 07:57 08:12 08:27 Pulse 71 75 74 76 Pulse Ox 98 99 99 95 Physical Exam General Appearance: The patient is alert, has no immediate need for airway protection and no current signs of toxicity. Eyes: Pupils equal and round no injection. Respiratory: Chest is non tender, lungs are clear to auscultation. Cardiac: regular rate and rhythm [ ] Gastrointestinal: Abdomen is soft and non tender, no masses, bowel sounds normal. Musculoskeletal: Neck: Neck is supple and non tender. Patient has pain with extension or internal/external rotation of the hip. She does have some swelling to the left prepatellar area. There is no overriding erythema. No ankle. No foot pain Skin: No rashes or lesions. Medical Decision Making Data Points Laboratory Hematology Test 07/12/17 06:50 Whole Blood Glucose 132 mg/DL (75-110) Chemistry Test 07/12/17 06:50 Whole Blood Glucose 132 mg/DL (75-110) EKG/Imaging Imaging FACILITY: [facility] [place] PATIENT NAME: Lizbeth Madrid : 1950 MR: [id number] V: [id number] EXAM DATE: ORDERING PHYSICIAN: BILLY WOOTEN TECHNOLOGIST: [place] [facility] [place]: Lizbeth Madrid : 1950 Visit/Account:[id number] Date of Sevice: 07/12/2017 KNEE 4 VIEW LEFT HISTORY: Fell on left side. Leg pain. COMPARISON: Concurrent left hip x-rays. TECHNIQUE: AP, oblique, sunrise, and lateral views of the left knee. FINDINGS: There is no fracture or dislocation. There is mild medial tibiofemoral joint compartment narrowing. There is a small joint effusion. There is diffuse bony demineralization. There is severe vascular calcifications. IMPRESSION: 1. Degenerative changes and small joint effusion, but no acute osseous abnormality of the left knee. 2. Diffuse bony demineralization. 3. Severe vascular calcifications. Report Dictated By: Rylee Leong at 07/12/2017 7:43 AM Report E-Signed By: Rylee Leong at 07/12/2017 7:45 AM WSN:[id number] FACILITY: [facility] [place] PATIENT NAME: Lizbeth Madrid : 1950 MR: [id number] V: [id number] EXAM DATE: ORDERING PHYSICIAN: GLADYS RICHTER TECHNOLOGIST: [place] [facility] [place] Patient: Lizbeth Madrid : 1950 Visit/Account:[id number] Date of Sevice: 07/12/2017 HIP LEFT HISTORY: Fell on left side. Left leg pain. COMPARISON: None. TECHNIQUE: AP view of the pelvis and frog-leg lateral view of the left hip. FINDINGS: There is diffuse bony demineralization. There is a fracture of the left inferior pubic ramus. Sacroiliac joints are patent without widening. There is no pubic diastases. There are pelvic phleboliths. There are mild vascular calcifications. IMPRESSION: 1. Fracture of the left inferior pubic ramus. Report Dictated By: Rylee Leong at 07/12/2017 7:41 AM Report E-Signed By: Rylee Leong at 07/12/2017 7:43 AM WSN:[id number] ED Course/Re-evaluation ED Course 07/12/2017 7:30:58 am plan at this time will be to image both the left hip and knee. We will give her pain medication disposition pending studies. 07/12/2017 8:25:13 am patient with isolated left pubic ramus fracture. Discussed options of pain control early mobilization at home versus consideration for admission which would require most likely a transport to put her [place] since the patient does receive dialysis. Patient at this time wishes to try pain medicine at home. I was able to schedule a follow-up appointment with Dr. Otf Urbano at 1:30 PM tomorrow at [facility]. Patient instructed if she is unable to tolerate pain at home to return to the emergency department for consideration of possible transport and admission Patient able to arrange through [facility] transport to and from appointments and dialysis. Appointment was made at 1:[address] Urbano during her normal dialysis time. We are calling dialysis to see if we can arrange a different time tomorrow for the patient to receive dialysis. Decision to Disposition Date: Jul 12, 2017 Decision to Disposition Time: 08:26 Depart Departure Latest Vital Signs Vital Signs Date Time Temp Pulse Resp B/P (MAP) Pulse Ox O2 Delivery O2 Flow Rate FiO2 07/12/17 08:27 76 95 07/12/17 06:48 97.4 20 110/43 Room Air Impression: Primary Impression: Inferior pubic ramus fracture Additional Impression: Left knee sprain Condition: Improved Disposition: HOME OR SELF-CARE Referrals: AUGUSTINE LOVE MD (PCP) RAMONA RIZZO MD 1 Day 1:30 PM at [facility] and [facility] New Scripts Oxycodone Hcl/Acetaminophen (PERCOCET 5-325 MG TABLET) 1 Each Tablet 1 EACH PO Q6-8H for PAIN, #25 TAB 0 Refills Prov: BILLY WOOTEN MD 07/12/17 Patient Instructions: Knee Immobilizer (DC), Pelvic Fracture (ED) Problem Qualifiers Primary Impression: Inferior pubic ramus fracture Encounter type: initial encounter Fracture type: closed Laterality: left Qualified Codes: S32.592A - Other specified fracture of left pubis, initial encounter for closed fracture Additional Impression: Left knee sprain Encounter type: initial encounter Involved ligament of knee: unspecified ligament Qualified Codes: S83.92XA - Sprain of unspecified site of left knee, initial encounter BILLY WOOTEN MD Jul 12, 2017 07:23
--- NOTE | 2017-07-12 07:47 | RADIOLOGY IMAGING REPORT ---
FACILITY: [facility] PATIENT NAME: Lizbeth Madrid : 1950 MR: [id number] V: [id number] EXAM DATE: ORDERING PHYSICIAN: GLADYS RICHTER TECHNOLOGIST: Location: [facility] [place] Patient: Lizbeth Madrid : 1950 Visit/Account:[id number] Date of Sevice: 07/12/2017 HIP LEFT HISTORY: Fell on left side. Left leg pain. COMPARISON: None. TECHNIQUE: AP view of the pelvis and frog-leg lateral view of the left hip. FINDINGS: There is diffuse bony demineralization. There is a fracture of the left inferior pubic ale s. Sacroiliac joints are patent without widening. There is no pubic diastases. There are pelvic phleboliths. There are mild vascular calcifications. IMPRESSION: 1. Fracture of the left inferior pubic ramus. Report Dictated By: Rylee Leong at 07/12/2017 7:41 AM Report E-Signed By: Rylee Leong at 07/12/2017 7:43 AM WSN:[id number]
--- NOTE | 2017-07-12 07:50 | RADIOLOGY IMAGING REPORT ---
FACILITY: [facility] - [place] PATIENT NAME: Lizbeth Madrid : 1950 MR: [id number] V: [id number] EXAM DATE: ORDERING PHYSICIAN: BILLY WOOTEN TECHNOLOGIST: Location: [facility] Patient: Lizbeth Madrid : 1950 Visit/Account:[id number] Date of Sevice: 07/12/2017 KNEE 4 VIEW LEFT HISTORY: Fell on left side. Leg pain. COMPARISON: Concurrent left hip x-rays. TECHNIQUE: AP, oblique, sunrise, and lateral views of the left knee. FINDINGS: There is no fracture or dislocation. There is mild medial tibiofemoral joint compartment na rrowing. There is a small joint effusion. There is diffuse bony demineralization. There is severe vas cular calcifications. IMPRESSION: 1. Degenerative changes and small joint effusion, but no acute osseous abnormality of the left knee. 2. Diffuse bony demineralization. 3. Severe vascular calcifications. Report Dictated By: Rylee Leong at 07/12/2017 7:43 AM Report E-Signed By: Rylee Leong at 07/12/2017 7:45 AM WSN:[id number]
[2017-07-12] MEDS ORDERED: OXYC-865 PO (08:37)
[2017-07-12 09:16] VITALS: BP 111/41
== END 2017-07-12 09:25 | disposition home or self-care (01) ==
LOC: ER 06:46
DX: S32.592A Other specified fracture of left pubis, initial encounter for closed fracture (principal); S83.92XA Sprain of unspecified site of left knee, initial encounter; W18.30XA Fall on same level, unspecified, initial encounter; E11.9 Type 2 diabetes mellitus without complications
CPT/HCPCS: 36416; 73502; 73564; 82948; 99283; A9270; L1830

== ENCOUNTER → 2017-07-12 | Outpatient (CLI) | payer MEDICARE, MEDICAID ==
[2015-09-18 10:56] VITALS: BMI 42.7
[~2017-07-12] MED LIST changes: +OXYC-865 PO
== END ==
LOC: AMB 09:27
PROVIDERS: ATTEND Nurse Practitioner
DX: S72.092A Other fracture of head and neck of left femur, initial encounter for closed fracture (principal); W19.XXXA Unspecified fall, initial encounter
CPT/HCPCS: A0425; A0428

== ENCOUNTER → 2017-07-12 | Outpatient (CLI) | payer MEDICARE, MEDICAID ==
[2015-09-18 10:56] VITALS: BMI 42.7
== END ==
LOC: AMB 06:11
PROVIDERS: ATTEND Nurse Practitioner
DX: M25.552 Pain in left hip (principal)
CPT/HCPCS: A0425; A0429

== ENCOUNTER 2017-07-13 08:55 | Emergency (ER) | payer MEDICARE, MEDICAID ==
[2015-09-18 10:56] VITALS: Ht 162.6 cm; Wt 106.1 kg
[~2017-07-13] VITALS: Ht 162.6 cm; Wt 106.1 kg
[2017-07-13] MEDS ORDERED: HYDROmorphone HCL 2 MG TAB PO ONE (09:00)
--- NOTE | 2017-07-13 09:18 | ER Report ---
History and Physical Time Seen By MD: 08:55 Hx. of Stated Complaint: PT FELL YESTERDAY AND FX L HIP SAND SPRAINED L KNEE. SHE DECLINED ADMISSION/TRANSFER. THIS AM UNABLE TO SIT IN CHAIR FOR DILAYSIS , SO IS HERE TO BE TRANSFERRED TO DIALYSIS HPI/ROS CHIEF COMPLAINT: Intractable pelvic pain HISTORY OF PRESENT ILLNESS: Patient is a 66-year-old female with past medical history for chronic back pain as well as type II diabetes and end-stage renal disease on dialysis. She was seen yesterday by myself in the emergency department after a mechanical fall resulting in a left inferior pubic ramus fracture as well as a left knee sprain. Discussions at time of disposition yesterday were to either have the patient attempted to go home with follow-up with orthopedics at 1:30 today and continued outpatient dialysis versus transfer to an inpatient facility if she felt that she was unable to tolerate her pain. Decision at that time yesterday was to send her home with pain medicine and be followed up as an outpatient. Apparently last night into this morning the patient's pain was not controlled well despite Percocet and hydromorphone. Patient is unable to sit up which will be required for outpatient dialysis. So the returned by implants to the emergency department for reevaluation. REVIEW OF SYSTEMS: Respiratory: No cough, no dyspnea. Cardiovascular: No chest pain, no palpitations. Gastrointestinal: No vomiting, no abdominal pain. Musculoskeletal: Left pelvic pain Allergies: Coded Allergies: Gadolinium-Containing Contrast Medi (Verified Allergy, Severe, 07/12/17) Home Meds Active Scripts Oxycodone Hcl/Acetaminophen (PERCOCET 5-325 MG TABLET) 1 Each Tablet, 1 EACH PO Q6-8H for PAIN, #25 TAB 0 Refills Prov:BILLY WOOTEN MD 07/12/17 Acetaminophen (ACETAMINOPHEN) 500 Mg Tablet, 500 MG PO Q6H Y for PAIN, #50 TAB Prov:MARK PAYAN MD 09/08/15 Insulin Glargine,Hum.rec.anlog (LANTUS SOLOSTAR) 100 Unit/1 Ml Insuln.pen, 22 UNIT SUBQ QHS, #1 BOX Prov:MARK PAYAN MD 09/08/15 [[id number]] 1 EACH TAB No Conflict Check, 1 EACH PO TIDAC Y for PRN , #100 TAB Prov:MARK PAYAN MD 09/08/15 Reported Medications Calcium Acetate (CALCIUM ACETATE) 667 Mg Tablet, 668 MG PO TIDCF 05/09/17 Hydrocodone Bit/Acetaminophen (HYDROCODON-ACETAMINOPHEN 5-325) 1 Each Tablet, 1 EACH PO Q8H Y for PAIN, TAB 05/09/17 Calcium Acetate (CALCIUM ACETATE) 667 Mg Tablet, 1334 MG PO TIDCF 04/18/17 Bumetanide (BUMETANIDE) 1 Mg Tablet, 2 MG PO non dialysis days 02/14/17 Midodrine Hcl (MIDODRINE HCL) 5 Mg Tablet, 10 MG PO 3XW Take Sunday, Sunday, and Sunday before dialysis treatment 10/25/16 Krill Oil/[place]-3/Dha/Epa (OMEGA-3 KRILL OIL SOFTGEL) 1 Each Capsule, 1 EACH PO DAILY, CAPSULE 07/02/16 [place]-3 Fatty Acids/Fish Oil (OMEGA 3 FISH OIL SOFTGEL) 1 Each Capsule.dr, 1 EACH PO QDAY 07/02/16 Cranberry Extract (Cranberry) 500 Mg Tablet, 1 TAB PO QDAY 10/03/15 Pregabalin (LYRICA) 75 Mg Capsule, 75 MG PO BID, CAPSULE 09/03/15 Insulin Aspart (NOVOLOG FLEXPEN) 100 Unit/1 Ml Insuln.pen, 15-20 UNIT SQ sliding scale 08/17/15 Oxygen (OXYGEN) Inha, 2 L INH DAILY, L 2L AT NIGHT WITH CPAP 04/22/15 Multivitamin (MULTI VITAMIN DAILY) 1 Each Tablet, 1 EACH PO DAILY 04/29/14 Past Medical/Surgical History Past medical history for end-stage renal disease on dialysis, insulin requiring diabetes, history of chronic back pain. Hx Smoking: No Smoking Status: Never Smoker Exposure to Second Hand Smoke?: No Hx Substance Use Disorder: No Hx Alcohol Use: No Constitutional Vital Sign - Last 24 Hours 07/13/17 09:00 Temp 98.4 Pulse 79 Resp 22 B/P (MAP) 117/69 Pulse Ox 96 O2 Delivery Nasal Cannula Physical Exam General Appearance: The patient is alert, has no immediate need for airway protection and no current signs of toxicity. [ ] Respiratory: Chest is non tender, lungs are clear to auscultation. Cardiac: regular rate and rhythm Gastrointestinal: Abdomen is soft and non tender, no masses, bowel sounds normal. Musculoskeletal: Neck: Neck is supple and non tender. Patient with pain motion of the left lower extremity. Pain localizes to the hip she also has a knee immobilizer in position. Medical Decision Making EKG/Imaging Imaging We will send copy of x-ray images obtained yesterday on disc for receiving facility. ED Course/Re-evaluation ED Course 07/13/2017 9:15:48 am I spoke with at [facility], which is her closest inpatient dialysis Center. She is agreed to accept the patient for observation at this time diagnosis of left pelvic fracture and intractable pain. Plan will be to transport by ambulance secondary to special handling precautions from the left inferior ramus fracture Decision to Disposition Date: Jul 13, 2017 Decision to Disposition Time: 09:16 Depart Departure Latest Vital Signs Vital Signs Date Time Temp Pulse Resp B/P (MAP) Pulse Ox O2 Delivery O2 Flow Rate FiO2 07/13/17 09:00 98.4 79 22 117/69 96 Nasal Cannula Impression: Primary Impression: Pelvic fracture Additional Impression: End stage renal disease Condition: Improved Disposition: XFER TO [facility] (To Dr Kohli at [facility]) Referrals: AUGUSTINE LOVE MD (PCP) Problem Qualifiers Primary Impression: Pelvic fracture Encounter type: subsequent encounter Pelvic bone location: pubis Sublocation of pubis: other portion of pubis Fracture type: closed Laterality: left Fracture healing: with routine healing Qualified Codes: S32.592D - Other specified fracture of left pubis, subsequent encounter for fracture with routine healing BILLY WOOTEN MD Jul 13, 2017 09:18
[2017-07-13 10:00] VITALS: BP 127/55
== END 2017-07-13 10:15 | disposition short-term general hospital (02) ==
LOC: ER 09:00
DX: S32.592D Other specified fracture of left pubis, subsequent encounter for fracture with routine healing (principal); E11.22 Type 2 diabetes mellitus with diabetic chronic kidney disease
CPT/HCPCS: 99284; A9270

== ENCOUNTER → 2017-07-13 | Outpatient (CLI) | payer MEDICARE, MEDICAID ==
[2015-09-18 10:56] VITALS: BMI 42.7
[~2017-07-13] MED LIST changes: +OXYC-865 PO
== END ==
LOC: AMB 08:31
PROVIDERS: ATTEND Nurse Practitioner
DX: M25.552 Pain in left hip (principal); Z99.2 Dependence on renal dialysis
CPT/HCPCS: A0425; A0429

== ENCOUNTER → 2017-07-13 | Outpatient (CLI) | payer MEDICARE, MEDICAID ==
[2015-09-18 10:56] VITALS: BMI 42.7
== END ==
LOC: AMB 09:53
PROVIDERS: ATTEND Nurse Practitioner
DX: S32.9XXA Fracture of unspecified parts of lumbosacral spine and pelvis, initial encounter for closed fracture (principal); E11.9 Type 2 diabetes mellitus without complications; Z99.2 Dependence on renal dialysis
CPT/HCPCS: A0425; A0428

== ENCOUNTER 2017-07-24 07:26 | Inpatient (IN) | payer MEDICARE, MEDICAID ==
[2015-09-18 10:56] VITALS: Ht 162.6 cm; Wt 104.8 kg
[~2017-07-24] VITALS: Ht 162.6 cm; Wt 104.8 kg
[2017-07-24] MEDS ORDERED: PNEUMOCOC VAC POLY 25MCG/0.5ML IM ONLY ONE (12:10)
[2017-07-24] MEDS ORDERED: INFLUENZA VIRUS VAC 0.5 ML SYR IM ONLY ONE (12:10)
[2017-07-24] MEDS ORDERED: INSULIN HUM LISPRO 100 UN/ML 3 ML VIAL SUBQ PRN (12:25)
[2017-07-24 12:30] VITALS: BP 124/49
[2017-07-24] MEDS ORDERED: oxyCODONE HCL 5 MG CAP PO PRN (12:45)
[2017-07-24] MEDS ORDERED: POLYETHYLENE GLYCOL 17 GM PKT PO PRN (12:55)
--- NOTE | 2017-07-24 13:05 | History & Physical ---
History of Present Illness History of Present Illness 66yo female with a h/o ESRD, T2DM and preserved EF CHF who was transferred from [facility] to [facility] for continued rehab after a pubic ramus fracture. On 07/13, she stood up from her chair and ended up falling. She thinks her leg had fallen asleep. She denies having any cp/sob/palpitation/vertigo prior to the fall. She went to the ER and was sent to [facility] because she requires dialysis. She denies any concerns or pain currently. History Problems: (1) Sleep apnea Status: Chronic (2) GERD (gastroesophageal reflux disease) Status: Chronic (3) CAD (coronary artery disease) Status: Chronic (4) COPD (chronic obstructive pulmonary disease) Status: Chronic (5) Diabetic neuropathy Status: Chronic (6) Chronic diastolic heart failure Status: Chronic (7) DM2 (diabetes mellitus, type 2) Status: Chronic (8) ESRD on hemodialysis Status: Chronic (9) Left knee sprain Status: Acute (10) Inferior pubic ramus fracture Status: Acute (11) Colostomy in place Status: Chronic Home Meds Active Scripts Oxycodone Hcl/Acetaminophen (PERCOCET 5-325 MG TABLET) 1 Each Tablet, 1 EACH PO Q6-8H for PAIN, #25 TAB 0 Refills Prov:BILLY WOOTEN MD 07/12/17 Acetaminophen (ACETAMINOPHEN) 500 Mg Tablet, 500 MG PO Q6H Y for PAIN, #50 TAB Prov:MARK PAYAN MD 09/08/15 Insulin Glargine,Hum.rec.anlog (LANTUS SOLOSTAR) 100 Unit/1 Ml Insuln.pen, 22 UNIT SUBQ QHS, #1 BOX Prov:MARK PAYAN MD 09/08/15 [[id number]] 1 EACH TAB No Conflict Check, 1 EACH PO TIDAC Y for PRN , #100 TAB Prov:MARK PAYAN MD 09/08/15 Reported Medications Calcium Acetate (CALCIUM ACETATE) 667 Mg Tablet, 668 MG PO TIDCF 05/09/17 Hydrocodone Bit/Acetaminophen (HYDROCODON-ACETAMINOPHEN 5-325) 1 Each Tablet, 1 EACH PO Q8H Y for PAIN, TAB 05/09/17 Calcium Acetate (CALCIUM ACETATE) 667 Mg Tablet, 1334 MG PO TIDCF 04/18/17 Bumetanide (BUMETANIDE) 1 Mg Tablet, 2 MG PO non dialysis days 02/14/17 Midodrine Hcl (MIDODRINE HCL) 5 Mg Tablet, 10 MG PO 3XW Take Sunday, Sunday, and Sunday before dialysis treatment 10/25/16 Krill Oil/[place]-3/Dha/Epa (OMEGA-3 KRILL OIL SOFTGEL) 1 Each Capsule, 1 EACH PO DAILY, CAPSULE 07/02/16 [place]-3 Fatty Acids/Fish Oil (OMEGA 3 FISH OIL SOFTGEL) 1 Each Capsule.dr, 1 EACH PO QDAY 07/02/16 Cranberry Extract (Cranberry) 500 Mg Tablet, 1 TAB PO QDAY 10/03/15 Pregabalin (LYRICA) 75 Mg Capsule, 75 MG PO BID, CAPSULE 09/03/15 Insulin Aspart (NOVOLOG FLEXPEN) 100 Unit/1 Ml Insuln.pen, 15-20 UNIT SQ sliding scale 08/17/15 Oxygen (OXYGEN) Inha, 2 L INH DAILY, L 2L AT NIGHT WITH CPAP 04/22/15 Multivitamin (MULTI VITAMIN DAILY) 1 Each Tablet, 1 EACH PO DAILY 04/29/14 Allergies: Coded Allergies: Gadolinium-Containing Contrast Medi (Verified Allergy, Severe, 07/12/17) Patient History: FH: breast cancer MOTHER FH: colon cancer FATHER Malignant neoplasm of gastrointestinal tract Hx Smoking: No Smoking Status: Never Smoker Exposure to Second Hand Smoke?: No Caffeine Intake: Coffee Caffeine/Cups Per Day: NONE Hx Alcohol Use: No Hx Substance Use Disorder: No Social Drug Use: Never Review of Systems All Systems Reviewed/Normal: Yes, Except as Noted Exam Vital Signs Vital Signs Date Time Temp Pulse Resp B/P (MAP) Pulse Ox O2 Delivery O2 Flow Rate FiO2 07/24/17 12:30 98.2 74 14 124/49 (74) 98 Nasal Cannula 3.0 General Appearance: Alert, Awake, No Acute Distress Cardiovascular: Regular Rate and Rhythm (2/6 systolic murmur) Respiratory: Clear to Auscultation GI: Abd Soft and Non-Tender (ostomy in LLQ) Extremities: No Edema Assessment and Plan Problems: (1) Inferior pubic ramus fracture Status: Acute Assessment & Plan: Secondary to a fall. There were no worrisome symptoms prior to the event. She is on a fentanyl patch and prn oxycodone for pain control. She is on ECF to work with therapy, so that she can try to go home. She required a walker and a lift chair prior to the fracture. Morbid obesity is also a complicating factor. (2) Left knee sprain Status: Acute Assessment & Plan: Secondary to the fall on 07/13. She had an Xray at [facility] and then was seen by Ortho on 07/21. They recommended conservative therapy and Voltaren gel. (3) DM2 (diabetes mellitus, type 2) Status: Chronic Assessment & Plan: Chronically on Lantus and Humalog SSI, which will be continued. She doesn't really have a consistent SSI at home, so will start with our level 3. (4) ESRD on hemodialysis Status: Chronic Assessment & Plan: She receives dialysis on . She is gets Bumex on non- dialysis days and gets Midodrine the day of dialysis. (5) Chronic diastolic heart failure Status: Chronic Assessment & Plan: No issues since dialysis initiated. (6) Sleep apnea Status: Chronic Assessment & Plan: Chronically uses a CPAP. (7) Diabetic neuropathy Status: Chronic Assessment & Plan: Continue Lyrica. (8) CAD (coronary artery disease) Status: Chronic Assessment & Plan: No current issues. Not on any secondary prevention medications. (9) COPD (chronic obstructive pulmonary disease) Status: Chronic Assessment & Plan: Lungs are clear. No current issues. Copies to: AUGUSTINE LOVE MD; REED ACKERMAN MD Venous Thromboembolism Antithrombotics Is Pt On Any Antithrombotics?: No Heart Failure Ejection Fraction %: 72 RVSP (mmHg): 46 NYHA Class: III Is Patient on JANESSA Inhibitor?: No Is Patient on Beta Rabia?: No Admission Weight: 250 ALINE VILLEDA MD Jul 24, 2017 13:04
[2017-07-24] MEDS ORDERED: CALCIUM ACETATE 667 MG CAP PO ONE (14:00)
[2017-07-24] MEDS ORDERED: BUMETANIDE 2 MG TAB PO SCH (14:00)
[2017-07-24] MEDS: fentaNYL 12 MCG TDSY TD SCH (14:11)
[2017-07-24 15:30] VITALS: BP 157/65
--- NOTE | 2017-07-24 15:38 | PT ECF NOTE ---
Type of Note: Initial Note Primary Medical Diagnosis: L) inferior pubic ramus fx, L) knee sprain Physical Therapy Evaluation Date: 07/24/17 SUBJECTIVE: Prior Hospitalization: [facility] 07/13/17-07/24/17 Prior Level of Function: Pt reports that she was completing stand pivot transfers with RW to/from power chair, as well as ambulating 80' at a time with RW Prior Living Status: Senior housing, Spouse Community Services: Home health care, 2x/day Home Accessibility: All needs on one level Equipment Owned: Front wheeled walker, power chair, adjustable bed, power lift chair Medical Complications/Past Medical History: ESRD, DM2. SCAR, Pulmonary HTN, CHF Psychosocial Support: Supportive Pain Scale (0-10): 3/10, L) hip and L) knee OBJECTIVE: Strength: Pt declined to sit at EOB to allow for formal MMT, Pt requires Theo to move L) LE through AROM while sidelying ROM: WFL L) LE (AAROM) Sensation: (please note any abnormalities): EMR reports neuropathy of hands and feet Other Neuro findings: see EMR Bed Mobility: Pt refused all mobility at time of evaluation Transfers: Pt refused all mobility at time of evaluation Gait: Pt refused all mobility at time of evaluation Stairs: Pt refused all mobility at time of evaluation Timed Up and Go (>12 seconds indicated increased risk for falls): Pt refused all mobility at time of evaluation ASSESSMENT: PT/OT subjective co-eval complete. Pt reports "long day" with persistent L) hip and knee pain, she rates as 3/10 at time of evaluation. PT attempted various strategies to motivate pt to participate in PT mobility eval. She reported that sitting at EOB was "asking alot" today and declined at this time. Pt requested PT to move L) LE. PT assisted pt in AAROM of L) LE, with pt demonstrating fair AROM in supine. PT and OT educated pt on rehab goals and importance of pt's participation in order to reach functional goals. Pt agreeable to attempt mobility tomorrow at 12:00 PM. Pt will benefit from skilled rehab services in order to increase independence with functional mobility to allow for d/c home. Pt participation and commitment to functional goals will be meredith in making functional gains. Problem List/Current Limitations: Pain Decreased activity rosie Decreased strength Decreased ROM Decreased initiation Lack of motivation Short Term Goals: 1: Pt to complete bed mobility with Theo 2: Pt to complete STS transfer with Theo and least restrictive AD 3: Pt to complete stand step pivot transfers to/from chair with Theo and least restrictive AD. 4: Pt to ambulate 5' with least restrictive AD and Theo. Dry Paste Supervisor Goals: Pt to discharge to safest location to allow for continued functional gains Patient Goals: Discharge home Rehabilitation Prognosis: Poor Barriers for Discharge: Pt is self limiting and displays decreased motivation to participate in therapy services, she was previously receiving extensive assistance from her spouse and [facility] services. PLAN: The patient will benefit from skilled physical therapy services 5 times per week for 2 weeks including: Therapeutic Exercise Therapeutic Activities Transfer Training Gait Training Manual Therapy Safety Training Neuromuscular Re-educ. Pt/Caregiver Training Bed Mobility Thank you for this referral. If you have any questions, concerns, or comments about this report or plan, please contact me at . Lakesha Boggs, PT, DPT [facility]
--- NOTE | 2017-07-24 15:50 | OT ECF NOTE ---
Type of Note: Initial Note Primary Medical Diagnosis: Generalized weakness s/p left pubic ramus fx and left knee sprain sustained from fall 07/12/17. Occupational Therapy Evaluation Date: 07/24/17 SUBJECTIVE: Prior Hospitalization: [facility] 07/13/17 thru 07/24/16. Pt receives dialysis 3x/ week. Prior Level of Function: Pt receives extensive assist for all ADLs and IADLs. She has Quality providing MOLD MAKER APPRENTICE assist 2x/day. Her spouse also provides extensive assist for ADLs/IADLs. She ambulates household distances with a RW and utilizes a power w/c for primary mobility. Prior Living Status: Senior housing, Spouse Community Services: Home health care, No known needs Home Accessibility: All needs on one level, Tub/shower combination Equipment Owned: Front wheeled walker Extended tub bench Power Wheelchair Lift Chair Adjustable bed with bed pole Medical Complications/Past Medical History: Chronic back pain, Type 2 DM, End Stage Renal Disease (receives dialysis 3x/week) Psychosocial Support: Supportive spouse Pain Scale (0-10): 3/10 in left lower extremity-ice/emotional support/ positioning provided OBJECTIVE: Strength: (Not tested at this time) MMT: Right Left Shoulder Flexion [*] [*] Elbow Flexion [*] [*] Wrist Extension [*] [*] Presser Cotton Ginning [*] [*] (5= normal, 4= good, 3= fair, 2= poor, 1= trace) ROM: Both upper extremities, WFL Functional Transfer: Pt declining to get OOB at this time, secondary to to L LE leg pain and having a "long day" already. Pt reporting that therapy is "asking a lot of me". Patient agreeable to OT/PT tx tomorrow at noon with goal of sitting EOB and introducing EZ lift. Assistive Device: Recommend Jael Lift for nursing staff at this time. Transfer Ability: Total Assistance ADL: Upper body dressing: Assistive device: Spouse assisted with dressing prior to hospital admission Upper body dressing ability: Total assistance Lower body dressing: Assistive device: Spouse assisted with dressing prior to hospital admission Lower body dressing ability: Total assistance Toileting: Assistive device: Patient completes all colostomy care from power w/c at home. Reports she does not ambulate to bathroom or complete toilet transfers. Toileting ability: Total assistance Grooming/hygiene: Assistive device: Grooming ability: N/T Bathing: Assistive device: Bathing ability: N/T. Patient reports her spouse assisted with sponge baths prior to admission. Standardized Assessment: Susy Index of Activities of Daily Livin/20 at initial evaluation (07/24). ASSESSMENT: Subjective evaluation completed. Pt declining to get OOB at time of evaluation, secondary to to L LE leg pain and having a "long day" already. Pt reporting that therapy is "asking a lot of me". Encouragement and education for engagement in rehabilitation provided. Patient agreeable to OT/PT tx tomorrow at noon with goal of sitting EOB and introducing EZ lift. At PLOF, pt was (I)ly completing stand pivot transfers and ambulating household distances with a RW. Pt is not at baseline mobility and would benefit from skilled OT services to improve (I) with transfers and activity tolerance for ADLs. Problem List/Current Limitations: Pain Generalized weakness Decreased initiation Lack of motivation Short Term Goals: 1) Pt will be Min A stand-pivot transfers. 2) Pt will be SBA grooming/hygiene seated. 3) Pt will be Mod A managing colostomy seated. Correction Goals: Return home with assistance from spouse and HH services. Patient Goals: Return home and "be able to walk about 80ft with a walker" Rehabilitation Prognosis: Poor Barriers to Discharge: Decreased motivation PLAN: The patient will benefit from skilled occupational therapy services 5 times per week for 2 weeks including: Ther ex ADL training Safety training Ther act IADL training Transfer training Adaptive equip training Bed mobility Energy conservation Thank you for this referral. If you have any questions, concerns, or comments about this report or plan, please contact me at . Gilda Warner MS, OTR/L Occupational Therapist [place]
[2017-07-24] MEDS: INSULIN HUM LISPRO 100 UN/ML 3 ML VIAL SUBQ PRN ×2 (16:50→20:03)
[2017-07-24] MEDS: PATIENT'S OWN MED TP SCH ×2 (17:35→20:03)
[2017-07-24] MEDS: PATIENT'S OWN MED PO SCH (17:36)
[2017-07-24] MEDS: CALCIUM ACETATE 667 MG CAP PO SCH (17:36)
--- NOTE | 2017-07-24 18:40 | Consultant Pharmacy Review ---
Italian Teacher Review Medication Review Do All Mecications have a Diag: Yes Beers Criteria Medication 2015 Sliding Scale Insulin: Slidin Scale Insulin (LISPRO) Other General Cautions OxyCODONE / ASSEMBLER FINAL Depressants Risk Rating D: Consider therapy modification Summary ASSEMBLER FINAL Depressants may enhance the ASSEMBLER FINAL depressant effect of OxyCODONE. Severity Major Reliability Rating Fair Patient Management Avoid concomitant use of oxycodone and benzodiazepines or other ASSEMBLER FINAL depressants when possible. These agents should only be combined if alternative treatment options are inadequate. If combined, limit the dosages and duration of each drug to the minimum possible while achieving the desired clinical effect. The extended release oxycodone starting dose should be reduced 50% to 67% when initiated in patients already receiving ASSEMBLER FINAL depressants. Warn patients and caregivers about the risk of slowed or difficult breathing and/or sedation and monitor patients closely for evidence of excessive ASSEMBLER FINAL depression ( ie, respiratory depression, hypotension, sedation, or coma). ASSEMBLER FINAL Depressants Interacting Members Acrivastine; Afloqualone; Alcohol (Ethyl); Alfentanil; ALPRAZolam; Amisulpride; Amitriptyline; Amobarbital; Amoxapine; ARIPiprazole; ARIPiprazole Lauroxil; Asenapine; Baclofen; Benperidol; Bilastine ; Blonanserin; Brexpiprazole; Brimonidine (Ophthalmic); Brivaracetam; Bromazepam ; Bromperidol; Brompheniramine; Buclizine; Buprenorphine; BusPIRone; Butabarbital; Butalbital; Butorphanol; CarBAMazepine; Carbinoxamine; Cariprazine ; Carisoprodol; Cetirizine (Systemic); Chloral Betaine; Chloral Hydrate; ChlordiazePOXIDE; Chlormethiazole; Chlorpheniramine; ChlorproMAZINE; Chlorzoxazone; Cinnarizine; Clemastine; CloBAZam; ClomiPRAMINE; ClonazePAM; CloNIDine; Clorazepate; Clothiapine; CloZAPine; Codeine; Cyclizine; Cyclobenzaprine; Cyproheptadine; Dantrolene; Desflurane; Desipramine; Desloratadine; Deutetrabenazine; Dexbrompheniramine; Dexchlorpheniramine; DiazePAM; Difenoxin; Dihydrocodeine; DimenhyDRINATE; Dimethindene (Systemic); DiphenhydrAMINE (Systemic); DiphenhydrAMINE (Topical); Diphenoxylate; Dosulepin ; Doxepin (Systemic); Doxepin (Topical); Doxylamine; Droperidol; Ebastine; Efavirenz; Entacapone; Eperisone; Estazolam; Eszopiclone; Ethosuximide; Ethotoin ; Ethyl Loflazepate; Etizolam; Ezogabine; Felbamate; FentaNYL; Fexofenadine; Flibanserin; Flunarizine; Flunitrazepam; Flupentixol; FluPHENAZine; Flurazepam; Fosphenytoin; Gabapentin; Gabapentin Enacarbil; Glutethimide; GuanFACINE; Haloperidol; Halothane; Heroin; HYDROcodone; HYDROmorphone; HydrOXYzine; Iloperidone; Imipramine; Isoflurane; Ketamine; Ketotifen (Systemic); LamoTRIgine ; LevETIRAcetam; Levocetirizine; Levorphanol; Lofepramine; Loprazolam; Loratadine; LORazepam; Lormetazepam; Loxapine; Lurasidone; Maprotiline; Meclizine; Melitracen [INT]; Meperidine; Meprobamate; Meptazinol; Mequitazine; Metaxalone; Methadone; Methocarbamol; Methohexital; Methotrimeprazine; Methoxyflurane; Methsuximide; Mianserin; Midazolam; Mirtazapine; Molindone; Morphine (Liposomal); Morphine (Systemic); Moxonidine; Nalbuphine; Nalfurafine; Nefopam; Nitrazepam; Nitrous Oxide; Nordazepam; Nortriptyline; OLANZapine; Olopatadine (Systemic); Opium; Opium Tincture; Orphenadrine; Oxatomide; Oxazepam ; Oxomemazine; OxyCODONE; OxyMORphone; Paliperidone; Paraldehyde; Paregoric; Pentazocine; PENTobarbital; Perampanel; Periciazine; Perphenazine; Pheniramine; PHENobarbital; Phenyltoloxamine; Phenytoin; Pholcodine; Pimozide; Pipamperone [ INT]; Pipotiazine; Pizotifen; Pomalidomide; Prazepam; Pregabalin; Primidone; Prochlorperazine; Promazine; Promethazine; Propofol; Protriptyline; Pyrilamine ( Systemic); Quazepam; QUEtiapine; Ramelteon; Remifentanil; Reserpine; Rilmenidine ; RisperiDONE; Rupatadine; Scopolamine (Ophthalmic); Scopolamine (Systemic); Secobarbital; Sevoflurane; Sodium Oxybate; Stiripentol; SUFentanil; Sulpiride; Suvorexant; Tapentadol; Tasimelteon; Temazepam; Tetrabenazine; Thalidomide; Thiopental; Thioridazine; Thiothixene; Thonzylamine; TiaGABine; TiZANidine; Tofisopam; Tolcapone; Topiramate; TraMADol; Triazolam; Trifluoperazine; Trimeprazine; Trimipramine; Triprolidine; Valerian; Vigabatrin; Zaleplon; Ziconotide; Ziprasidone; Zolpidem; Zonisamide; Zopiclone; Zuclopenthixol Discussion The US Food and Drug Administration (FDA) issued a drug safety communication stating that the combined use of opioid medicines with benzodiazepines or other drugs that depress the ASSEMBLER FINAL has resulted in serious side effects, including slowed or difficult breathing and deaths.1 The labels of all opioid medications and benzodiazepines will be updated to include a boxed warning describing this alert.1 A cohort study conducted in [place] found that the risk of opioid- related overdose was 10-fold higher in patients who also received benzodiazepines (7.0 per 10,000 person-years; 95% CI 6.3 to 7.8) compared with patients who received opioids alone (0.7 per 10,000 person years; 95% CI 0.6 to 0.9).2 In another analysis of patients receiving opioids in the [facility] database, the risk of from drug overdose was significantly higher among patients prescribed concomitant benzodiazepines compared with those receiving opioids alone (hazard ratio 3.86; 95% CI 3.49 to 4.26).3 Additional analyses have concluded that other ASSEMBLER FINAL depressants (eg, antipsychotics, antidepressants, antiepileptics) and alcohol are often implicated in opioid-related overdose and .4,5 Oxycodone prescribing information states that concomitant use of ASSEMBLER FINAL depressants (including alcohol) and oxycodone may result in additive ASSEMBLER FINAL depression and lead to respiratory depression, hypotension, profound sedation, or coma.6,7,8 When oxycodone is combined with another ASSEMBLER FINAL depressant, a dose reduction of one or both agents should be considered.6,7,8 Prescribing information for oxycodone extended release products states that the oxycodone starting dose should be reduced 50% to 67% when initiated in patients already receiving ASSEMBLER FINAL depressants.7,8 Footnotes 1. US Food and Drug Administration. FDA Drug Safety Communication: FDA warns about serious risks and when combining opioid pain or cough medicines with benzodiazepines; requires its strongest warning. http://www.fda.gov/Drugs/ DrugSafety/pnd884741.htm. Published February 09, 2016. Accessed February 17, 2016. 2. Fred N, Gabo MJ, Raleigh S, Michael A, Kyra KM, Mele S. Cohort study of the impact of high-dose opioid analgesics on overdose mortality. Pain Med. 2016;17(1):85-98. [PubMed [id number]] 3. Cesilia TW, Leandra R, Adrian D, Yocasta MA, Werner . Benzodiazepine prescribing patterns and deaths from drug overdose among [place] veterans receiving opioid analgesics: case-cohort study [published online November 18, 2014]. BMJ. doi : 10.1136/bmj.h2698. [PubMed [id number]] 4. Pedro Luis LESTER, Logan GOVEA, Iván CALVO. Pharmaceutical overdose deaths, [place] , 2009. CRYSTAL. 2013;309(7):657-659. [PubMed [id number]] 5. Iván Cloud CM, Logan GOVEA; Centers for Disease Control and Prevention ( CDC). Alcohol involvement in opioid pain reliever and benzodiazepine drug abuse- related emergency department visits and drug-related deaths-[place], 2009. MMWR Morb Mortal Wkly Rep. 2014;63(40):881-885. [PubMed [id number]] 6. Roxicodone (oxycodone) [prescribing information]. [place], [place]: [employer]; August 2008. 7. Targiniq ER (oxycodone/naloxone) extended-release tablets [prescribing information]. [place]: [employer]; December 2013. 8. Oxycontin (oxycodone) extended-release tablets [prescribing information]. [place]: [employer] ; January 2015. * Terms & Conditions // * Disclaimer * [employer] on Facebook * [employer] on Twitter * Get [employer] 2018 [employer]. and its affiliates and/or licensors. All Rights Reserved. * Top of Form 1 * Bottom of Form 1 Pneumococcal Vaccine HX Pneumo Vac (Pneumovax): Yes Comments Regarding the Review Patient may receive the [id number] vaccine 12 months after the pneumovax. If patient desires, she may receive the influenza vaccine for 2017. MARK BARRIOS Jul 24, 2017 18:40
[2017-07-24] MEDS: PREGABALIN 25 MG CAP PO SCH (20:03)
[2017-07-24] MEDS: INSULIN GLARGINE 100 U/ML 3 ML PEN SUBQ SCH (20:04)
[2017-07-25 07:30] VITALS: BP 124/66
[2017-07-25] MEDS: PATIENT'S OWN MED TP SCH ×4 (08:24→21:16)
[2017-07-25] MEDS: HYPROMELLOSE 0.4% LUB 15ML BTL OU PRN (08:25)
[2017-07-25] MEDS: MULTIVITAMINS TAB PO SCH (08:25)
[2017-07-25] MEDS: PREGABALIN 25 MG CAP PO SCH ×2 (08:25→21:16)
[2017-07-25] MEDS: CALCIUM ACETATE 667 MG CAP PO SCH ×3 (08:25→17:51)
[2017-07-25] MEDS: PATIENT'S OWN MED PO SCH ×5 (08:26→17:51)
[2017-07-25] MEDS: INSULIN HUM LISPRO 100 UN/ML 3 ML VIAL SUBQ PRN ×2 (08:27→12:38)
[2017-07-25] MEDS ORDERED: MIDODRINE 2.5 MG TAB PO SCH (09:00)
[2017-07-25] MEDS: oxyCODONE HCL 5 MG CAP PO PRN (10:24)
--- NOTE | 2017-07-25 13:21 | Medical Nutrition Therapy ---
Nutrition Anthropometrics Height (Inches): 64.00 Weight (Pounds): 234 BMI Calculated: 42.70 Errol Nutrition Score: Adequate Errol Nutrition Risk Score: 16 Dietary Referral Nutrition Risk Factors: Diff. Swallowing Nutrition Risk Comment: Physical Findings Physical Appearance: Morbidly Obese 40+ Skin Appearance Skin Appearance: Edema Edema Location Modifier: Left Edema Location: Knee Type of Edema: Degree of Edema: Gastrointestinal Symptoms GI Symtoms: Tube Present: Bowel Sounds: Recent Bowel Pattern: Stool Characteristics: Nutritional Diagnosis Nutritional Risk Acuity 1: Acute/ES Renal Nutritional Risk Acuity 3: GERD, Morbid Obesity Nutritional Risk Acuity 4: Good Appetite Past Medical History: CHF, T2DM, GERD, diabetic neuropathy, ESRD, sleep apnea,CAD, colostomy, COPD, morbid obesity Nutritional Acuity: 1-High Nutrition Diagnosis: Increased Nutrient Needs Nutrition Problem/Etiology/Sym: Increased nutrient needs related to status post hip fracture and ESRD as evidenced by dialysis. Energy Requirement: 2580 (per Dialysis) Protein Requirement: 103 (per Dialysis) Fluid Requirement: 1500 (per Dialysis) Diet Type: Regular Nutrition Intervention: Cont diet as ordered, Encourage intake, Nutrition support Drug: Diuretics Optional Order Time?: No Diet Comment To RSA: Protein powder in appropriate food. Offer Sugar Free Nutritional Supplement Nutrition Monitoring & Eval Nutrition Goals: Eat 50-100% Meal RD Patient Assessment Time: [address] Assessment Type: RD Assessment Patient Nutrition Acuity: 1-High Follow Up Date: Jul 31, 2017 Nutritional Comment: Pt. admitted status post pubic ramus fracture from [facility]. Pt is on dialysis with ESRD. PMH: T2DM sleep apnea, morbid obesity, GERD, COPD, CAD, CHF, diabetic neuropathy. Pt has a colostomy. Will comply with diabetic and renal diet, offering high protein foods. Pt on diuretics and insulin 07/25)WBG 166. Will continue to monitor weight, labs, po intake QUYEN JOSE Jul 25, 2017 11:38
[2017-07-25] MEDS: DOCUSATE SODIUM 100 MG CAP PO SCH ×2 (13:45→21:00)
[2017-07-25 20:03] VITALS: BP 130/68
[2017-07-25] MEDS: ACETAMINOPHEN 325 MG TAB PO PRN (21:15)
[2017-07-25] MEDS: INSULIN GLARGINE 100 U/ML 3 ML PEN SUBQ SCH (21:16)
[2017-07-26 08:00] VITALS: BP 142/68
[2017-07-26] MEDS: PATIENT'S OWN MED PO SCH ×2 (08:29→08:32)
[2017-07-26] MEDS: CALCIUM ACETATE 667 MG CAP PO SCH ×3 (08:30→17:18)
[2017-07-26] MEDS: BUMETANIDE 2 MG TAB PO SCH (08:30)
[2017-07-26] MEDS: PREGABALIN 25 MG CAP PO SCH ×2 (08:30→21:07)
[2017-07-26] MEDS: MULTIVITAMINS TAB PO SCH (08:30)
[2017-07-26] MEDS: HYPROMELLOSE 0.4% LUB 15ML BTL OU PRN (08:31)
[2017-07-26] MEDS: PATIENT'S OWN MED TP SCH (08:31)
[2017-07-26] MEDS: DOCUSATE SODIUM 100 MG CAP PO SCH ×2 (08:43→21:00)
[2017-07-26] MEDS: oxyCODONE HCL 5 MG CAP PO PRN ×2 (10:38→21:07)
[2017-07-26] MEDS: DICLOFENAC SOD 100 GM GEL TOP SCH ×3 (12:24→21:00)
[2017-07-26] MEDS: ALPHA D GALACTOSIDASE PO SCH ×2 (12:25→17:00)
[2017-07-26] MEDS: INSULIN HUM LISPRO 100 UN/ML 3 ML VIAL SUBQ PRN ×2 (12:37→17:20)
[2017-07-26 19:06] VITALS: BP 138/70
[2017-07-26] MEDS: INSULIN GLARGINE 100 U/ML 3 ML PEN SUBQ SCH (21:07)
[2017-07-27 07:35] VITALS: BP 125/94
[2017-07-27] MEDS: DICLOFENAC SOD 100 GM GEL TOP SCH ×4 (08:27→20:23)
[2017-07-27] MEDS: ALPHA D GALACTOSIDASE PO SCH ×3 (08:27→17:00)
[2017-07-27] MEDS: EPA PO SCH (08:28)
[2017-07-27] MEDS: DOCOSAHEXANOIC ACID PO SCH (08:28)
[2017-07-27] MEDS: OMEGA PO SCH (08:28)
[2017-07-27] MEDS: PREGABALIN 25 MG CAP PO SCH ×2 (08:29→20:28)
[2017-07-27] MEDS: HYPROMELLOSE 0.4% LUB 15ML BTL OU PRN (08:29)
[2017-07-27] MEDS: MULTIVITAMINS TAB PO SCH (08:29)
[2017-07-27] MEDS: CALCIUM ACETATE 667 MG CAP PO SCH ×3 (08:30→17:30)
[2017-07-27] MEDS: DOCUSATE SODIUM 100 MG CAP PO SCH ×2 (08:30→20:23)
[2017-07-27] MEDS: oxyCODONE HCL 5 MG CAP PO PRN ×2 (09:41→20:27)
[2017-07-27] MEDS: INSULIN HUM LISPRO 100 UN/ML 3 ML VIAL SUBQ PRN (12:32)
[2017-07-27] MEDS: fentaNYL 12 MCG TDSY TD SCH (12:39)
[2017-07-27] MEDS: MIDODRINE 2.5 MG TAB PO SCH (13:36)
[2017-07-27 20:03] VITALS: BP 130/88
[2017-07-27] MEDS: [UNRECOGNIZED DRUG - OTHER] TP SCH (20:23)
[2017-07-27] MEDS: INSULIN GLARGINE 100 U/ML 3 ML PEN SUBQ SCH (20:27)
[2017-07-28 08:00] VITALS: BP 135/37
[2017-07-28] MEDS: ALPHA D GALACTOSIDASE PO SCH ×3 (08:18→17:17)
[2017-07-28] MEDS: CALCIUM ACETATE 667 MG CAP PO SCH ×3 (08:59→17:17)
[2017-07-28] MEDS: DOCOSAHEXANOIC ACID PO SCH (08:59)
[2017-07-28] MEDS: MULTIVITAMINS TAB PO SCH (08:59)
[2017-07-28] MEDS: OMEGA PO SCH (08:59)
[2017-07-28] MEDS: PREGABALIN 25 MG CAP PO SCH ×2 (08:59→20:22)
[2017-07-28] MEDS: EPA PO SCH (08:59)
[2017-07-28] MEDS: DOCUSATE SODIUM 100 MG CAP PO SCH ×2 (09:00→20:23)
[2017-07-28] MEDS: INSULIN HUM LISPRO 100 UN/ML 3 ML VIAL SUBQ PRN ×4 (09:04→20:22)
[2017-07-28] MEDS: BUMETANIDE 2 MG TAB PO SCH (09:11)
[2017-07-28] MEDS: [UNRECOGNIZED DRUG - OTHER] TP SCH ×2 (10:00→20:20)
[2017-07-28] MEDS: DICLOFENAC SOD 100 GM GEL TOP SCH ×4 (10:00→20:21)
[2017-07-28] MEDS: ONDANSETRON 4 MG ODT TABDP SL PRN (11:09)
[2017-07-28 16:42] VITALS: BP 134/44
[2017-07-28] MEDS: INSULIN GLARGINE 100 U/ML 3 ML PEN SUBQ SCH (20:21)
[2017-07-28] MEDS: ACETAMINOPHEN 325 MG TAB PO PRN (21:15)
[2017-07-29] MEDS: ONDANSETRON 4 MG ODT TABDP SL PRN (02:13)
[2017-07-29 02:30] VITALS: BP 136/52
--- NOTE | 2017-07-29 02:51 | EKG ---
FACILITY: [facility] PATIENT NAME: RENU TAMAYO : [id number] MR: [id number] V: [id number] EXAM DATE: ORDERING PHYSICIAN: MARK PAYAN TECHNOLOGIST: Test Reason : Blood Pressure : / mmHG Vent. Rate : 080 BPM Atrial Rate : 080 BPM P-R Int : 210 ms QRS Dur : 096 ms QT Int : 392 ms P-R-T Axes : 040 033 035 degrees QTc Int : 452 ms Sinus rhythm with 1st degree AV block Otherwise normal ECG Confirmed by MARK MISHRA ([id number]) on 07/29/2017 6:48:03 AM Referred By: Confirmed By:MARK MISHRA
--- NOTE | 2017-07-29 06:31 | Miscellaneous Provider Note ---
Miscellaneous Provider Note Note Called by nursing staff last evening. Patient stating she had a stroke. Per nursing staff VSS and exam normal. Called again this am. Pt. stating she was having a heart attack. She wanted the staff to call her to come in at 0300. She denied chest pain or shortness of breath. VSS. EKG without any acute changes. Troponin 0.1 (ESRD on dialysis). Went to see patient on ECF and she had finally fallen asleep so I did not examine her. Will repeat a troponin at 0900. With ESRD, the troponin will be high but should be similar to the previous one. The patient seems to have anxiety which worsens after her spouse leaves for the evening. May need to consider treatment so she can get some sleep. MARK PAYAN MD Jul 29, 2017 06:31
[2017-07-29 07:55] VITALS: BP 116/56
[2017-07-29] MEDS: DOCOSAHEXANOIC ACID PO SCH (08:33)
[2017-07-29] MEDS: EPA PO SCH (08:33)
[2017-07-29] MEDS: OMEGA PO SCH (08:33)
[2017-07-29] MEDS: [UNRECOGNIZED DRUG - OTHER] TP SCH ×2 (08:34→20:49)
[2017-07-29] MEDS: DICLOFENAC SOD 100 GM GEL TOP SCH ×4 (08:34→20:50)
[2017-07-29] MEDS: ALPHA D GALACTOSIDASE PO SCH ×3 (08:34→17:40)
[2017-07-29] MEDS: PREGABALIN 25 MG CAP PO SCH ×2 (08:35→20:49)
[2017-07-29] MEDS: CALCIUM ACETATE 667 MG CAP PO SCH ×3 (08:35→17:40)
[2017-07-29] MEDS: DOCUSATE SODIUM 100 MG CAP PO SCH ×2 (08:36→20:51)
[2017-07-29] MEDS: MULTIVITAMINS TAB PO SCH (08:36)
[2017-07-29] MEDS: INSULIN HUM LISPRO 100 UN/ML 3 ML VIAL SUBQ PRN ×3 (08:36→20:50)
[2017-07-29] MEDS: BUMETANIDE 2 MG TAB PO SCH (08:38)
[2017-07-29 15:35] VITALS: BP 118/48
[2017-07-29] MEDS: INSULIN GLARGINE 100 U/ML 3 ML PEN SUBQ SCH (20:49)
[2017-07-30 07:40] VITALS: BP 133/67
[2017-07-30] MEDS: INSULIN HUM LISPRO 100 UN/ML 3 ML VIAL SUBQ PRN ×3 (08:23→21:24)
[2017-07-30] MEDS: [UNRECOGNIZED DRUG - OTHER] TP SCH ×2 (08:23→21:27)
[2017-07-30] MEDS: MULTIVITAMINS TAB PO SCH (08:24)
[2017-07-30] MEDS: DOCUSATE SODIUM 100 MG CAP PO SCH ×2 (08:24→21:28)
[2017-07-30] MEDS: PREGABALIN 25 MG CAP PO SCH ×2 (08:24→21:26)
[2017-07-30] MEDS: ALPHA D GALACTOSIDASE PO SCH ×3 (08:25→17:38)
[2017-07-30] MEDS: DICLOFENAC SOD 100 GM GEL TOP SCH ×4 (08:25→21:26)
[2017-07-30] MEDS: CALCIUM ACETATE 667 MG CAP PO SCH ×3 (08:25→17:38)
[2017-07-30] MEDS: [UNRECOGNIZED DRUG - OTHER] PO SCH (08:27)
[2017-07-30] MEDS: OMEGA PO SCH (08:27)
[2017-07-30] MEDS ORDERED: PATIENT'S OWN MED PO SCH (09:00)
[2017-07-30] MEDS ORDERED: PATCH REMOVAL 1 EA TP ONE (10:50)
[2017-07-30] MEDS: MIDODRINE 2.5 MG TAB PO SCH (11:28)
--- NOTE | 2017-07-30 12:29 | Medical Nutrition Therapy ---
Nutrition Anthropometrics Height (Inches): 64.00 Height (Calculated Centimeters: 162.069265 Weight (Pounds): 235 Weight (Calculated Kilograms): 106.764 BMI Calculated: 42.70 Errol Nutrition Score: Probably Inadequate Errol Nutrition Risk Score: 14 Dietary Referral Nutrition Risk Factors: Diff. Swallowing Nutrition Risk Comment: Physical Findings Physical Appearance: Morbidly Obese 40+ Skin Appearance Skin Appearance: Edema Edema Location Modifier: Left Edema Location: Knee Type of Edema: Degree of Edema: Gastrointestinal Symptoms GI Symtoms: Nausea Tube Present: Bowel Sounds: Recent Bowel Pattern: Stool Characteristics: Nutritional Diagnosis Nutritional Risk Acuity 1: Acute/ES Renal Nutritional Risk Acuity 3: GERD, Morbid Obesity Nutritional Risk Acuity 4: Good Appetite Past Medical History: CHF, T2DM, GERD, diabetic neuropathy, ESRD, sleep apnea,CAD, colostomy, COPD, morbid obesity Nutritional Acuity: 3-Mild Nutrition Diagnosis: Increased Nutrient Needs Nutrition Problem/Etiology/Sym: Increased nutrient needs related to status post hip fracture and ESRD as evidenced by dialysis. Energy Requirement: 2580 (per Dialysis) Protein Requirement: 103 (per Dialysis) Fluid Requirement: 1500 (per Dialysis) Diet Type: Regular Nutrition Intervention: Cont diet as ordered, Encourage intake, Nutrition support Drug: Diuretics Optional Order Time?: No Diet Comment To RSA: Protein powder in appropriate food. Offer Sugar Free Nutritional Supplement Nutrition Monitoring & Eval RD Patient Assessment Time: [address] Assessment Type: RD Re-Assessment Patient Nutrition Acuity: 3-Mild Follow Up Date: Aug 07, 2017 Nutritional Comment: Pt. admitted status post pubic ramus fracture from [facility]. Pt is on dialysis with ESRD. PMH: T2DM sleep apnea, morbid obesity, GERD, COPD, CAD, CHF, diabetic neuropathy. Pt has a colostomy. Will comply with diabetic and renal diet, offering high protein foods. Pt on diuretics and insulin 2)WBG 166. Will continue to monitor weight, labs, po intake. Weight will shift significantly due to dialysis 07/30)Pt. admitted status post pubic ramus fracture from [facility]. Pt is on dialysis with ESRD. PMH: T2DM sleep apnea, morbid obesity, GERD, COPD, CAD, CHF, diabetic neuropathy. Pt has a colostomy. 07/30) Labs BG 224 Regular diet PO intake 87% x past 4 meals. QUYEN JOSE Jul 30, 2017 11:20
[2017-07-30 17:20] VITALS: BP 112/60
[2017-07-30] MEDS: ACETAMINOPHEN 325 MG TAB PO PRN (17:42)
[2017-07-30] MEDS: INSULIN GLARGINE 100 U/ML 3 ML PEN SUBQ SCH (21:26)
[2017-07-30] MEDS: oxyCODONE HCL 5 MG CAP PO PRN (21:27)
[2017-07-31] MEDS: ALPHA D GALACTOSIDASE PO SCH ×3 (08:17→17:27)
[2017-07-31] MEDS: CALCIUM ACETATE 667 MG CAP PO SCH ×3 (08:17→17:28)
[2017-07-31 08:30] VITALS: BP 134/38
[2017-07-31] MEDS: MULTIVITAMINS TAB PO SCH (09:46)
[2017-07-31] MEDS: BUMETANIDE 2 MG TAB PO SCH (09:47)
[2017-07-31] MEDS: DOCUSATE SODIUM 100 MG CAP PO SCH ×2 (09:47→20:46)
[2017-07-31] MEDS: PREGABALIN 25 MG CAP PO SCH ×2 (09:47→20:46)
[2017-07-31] MEDS: OMEGA PO SCH (09:47)
[2017-07-31] MEDS: DICLOFENAC SOD 100 GM GEL TOP SCH ×4 (09:47→20:46)
[2017-07-31] MEDS: [UNRECOGNIZED DRUG - OTHER] TP SCH ×2 (09:47→20:46)
[2017-07-31] MEDS: [UNRECOGNIZED DRUG - OTHER] PO SCH (09:47)
[2017-07-31] MEDS: oxyCODONE HCL 5 MG CAP PO PRN (10:35)
[2017-07-31] MEDS: INSULIN HUM LISPRO 100 UN/ML 3 ML VIAL SUBQ PRN (12:25)
--- NOTE | 2017-07-31 13:54 | SPEECH INITIAL EVALUATION ---
INITIAL SPEECH THERAPY EVALUATION REPORT Patient Name: Lizbeth Madrid Date of Evaluation: 07-30-2017 Patient : 1950, 66yrs Clinician: Ofelia Valdez M.S., CCC-HADOOP JAVA DEVELOPER, RICCO Evans Treatment Dx: Cognitive/communication BACKGROUND The patient is a 66 year old female experiencing recent decrease in functional cognition-communication. She lives with her at home in a handicapped accessible house. The patients reported that the patient independently transports herself throughout the house using her walker, wheelchair, and lift. She was admitted to [facility] on 07/13/2017 with a pelvic fracture after experiencing a fall in her home. The patients medical hx is consistent with diabetes II, chronic back pain, and end-stage renal disease. The patient was referred to ST for a recent decline in cognitive function as reported by her . The patient reports that her cognitive status has improved since removing her fentanyl patch. LANGUAGE/COGNITION The Ivor Cognitive Assessment (MoCA) was administered with the following results: -MoCA Total Score (TS): 27/30 = Normal cognitive function. -Cognitive Domains Demonstrating Deficits: fluency/word generation, serial subtraction -Cognitive Domains Demonstrating Strength: visuospatial/executive function, naming, memory, attention, language SPEECH: Articulation of speech sounds at word, sentence, and conversational level is WNL. VOICE: Within functional limits SUMMARY COGNITIVE ASSESSMENT Functional Communication Deficits: Overall cognitive testing results are high with the exception of word generating and serial subtraction. The patient reported that she has always struggled with subtraction and did not accredit this as a change in cognition. The patient generated 9 words (initial phoneme specific) within 60 seconds and was only two words away from receiving a full score in that section. The patient is aware of her physical limitations, and reports she transport/transfers herself independently at home, and recalls 3 safety precautions to practice when transporting/transferring. In addition, the patient demonstrates functional problem solving skills and develops strategies to self-assist with more difficult cognitive tasks such as functional math. Results indicate that the patient is able to perform daily functional cognitive/communication tasks including IADLs with additional assistance from her . ST will follow up with the patient to educate her on the maintenance of cognitive health. RECOMMENDATIONS ST for 1 follow up sessions for patient/spouse education PROGNOSIS: Good. Patient is motivated and demonstrates independence with her daily tasks and care. PLAN OF CARE Short Term Goal 1.The patient will demonstrate knowledge of cognitive health maintenance by independently recalling 2-3 cognitive health strategies by the end of the 1st session. Long-Term Goals 1. The patient will demonstrate functional cognitive health strategies to promote maximum cognitive performance for all IADLs. Thank you for this referral. Please call [phone] Ofelia Valdez M.S., [facility]-HADOOP JAVA DEVELOPER, Sada Perez, [facility]
[2017-07-31 16:50] VITALS: BP 106/68
[2017-07-31] MEDS: INSULIN GLARGINE 100 U/ML 3 ML PEN SUBQ SCH (20:45)
[2017-08-01 07:46] VITALS: BP 142/57
[2017-08-01] MEDS: MULTIVITAMINS TAB PO SCH (08:27)
[2017-08-01] MEDS: DICLOFENAC SOD 100 GM GEL TOP SCH ×4 (08:27→20:22)
[2017-08-01] MEDS: CALCIUM ACETATE 667 MG CAP PO SCH ×3 (08:27→17:11)
[2017-08-01] MEDS: PREGABALIN 25 MG CAP PO SCH (08:27)
[2017-08-01] MEDS: [UNRECOGNIZED DRUG - OTHER] TP SCH ×2 (08:27→20:23)
[2017-08-01] MEDS: ALPHA D GALACTOSIDASE PO SCH ×3 (08:28→17:13)
[2017-08-01] MEDS: [UNRECOGNIZED DRUG - OTHER] PO SCH (08:28)
[2017-08-01] MEDS: OMEGA PO SCH (08:28)
[2017-08-01] MEDS: DOCUSATE SODIUM 100 MG CAP PO SCH ×2 (09:00→20:22)
[2017-08-01] MEDS: oxyCODONE HCL 5 MG CAP PO PRN (10:45)
[2017-08-01] MEDS: MIDODRINE 2.5 MG TAB PO SCH (12:15)
--- NOTE | 2017-08-01 13:36 | Hospitalist Progress Note ---
Subjective Progress Notes Subjective Having worsening of her diabetic neuropathy symptoms. Her feet burn at night. Physical Exam Vital Signs Date Time Temp Pulse Resp B/P (MAP) Pulse Ox O2 Delivery O2 Flow Rate FiO2 08/01/17 10:42 85 Room Air 08/01/17 09:58 2.0 08/01/17 07:46 96.7 73 16 142/57 (85) Intake and Output 08/02/17 07:00 Intake Total 0 ml Balance 0 ml Intake Oral 0 ml # Voids 1 General Appearance: Alert, Awake, No Acute Distress Neuro: No Gross deficits Eyes: PERRLA Cardiovascular: Regular Rate and Rhythm (With soft systolic murmur.) Respiratory: No Respiratory Distress, Clear to Auscultation GI: Soft and Non-Tender Extremities: Warm, Perfused, Other (No edema.) Psych: Appropriate Mood & Affect Assessment and Plan Problems: (1) Inferior pubic ramus fracture Status: Acute Assessment & Plan: Secondary to a fall. There were no worrisome symptoms prior to the event. She was on a fentanyl patch and prn oxycodone for pain control. She had side effects from the fentany and it was removed. She is on ECF to work with therapy, so that she can try to go home. She required a walker and a lift chair prior to the fracture. Morbid obesity is also a complicating factor. (2) Left knee sprain Status: Acute Assessment & Plan: Secondary to the fall on 07/13. She had an Xray at [facility] and then was seen by Ortho on 07/21. They recommended conservative therapy and Voltaren gel. (3) DM2 (diabetes mellitus, type 2) Status: Chronic Assessment & Plan: Chronically on Lantus and Humalog SSI, which will be continued. She doesn't really have a consistent SSI at home, so will start with our level 3. (4) ESRD on hemodialysis Status: Chronic Assessment & Plan: She receives dialysis on . She is gets Bumex on non- dialysis days and gets Midodrine the day of dialysis. (5) Chronic diastolic heart failure Status: Chronic Assessment & Plan: No issues since dialysis initiated. (6) Sleep apnea Status: Chronic Assessment & Plan: Chronically uses a CPAP. (7) Diabetic neuropathy Status: Chronic Assessment & Plan: Will increase Lyrica to 150mg at HS per the patient's request. (8) CAD (coronary artery disease) Status: Chronic Assessment & Plan: No current issues. Not on any secondary prevention medications. (9) COPD (chronic obstructive pulmonary disease) Status: Chronic Assessment & Plan: Lungs are clear. No current issues. Time Spent on Plan of Care: < 30 min Heart Failure Ejection Fraction %: 72 RVSP (mmHg): 46 NYHA Class: III Is Patient on JANESSA Inhibitor?: No Is Patient on Beta Rabia?: No Admission Weight: 250 MARK PAYAN MD Aug 01, 2017 13:36
[2017-08-01] MEDS: INSULIN HUM LISPRO 100 UN/ML 3 ML VIAL SUBQ PRN (17:13)
[2017-08-01] MEDS: PREGABALIN 50 MG CAP PO SCH (20:22)
[2017-08-01] MEDS: INSULIN GLARGINE 100 U/ML 3 ML PEN SUBQ SCH (20:22)
[2017-08-01 20:50] VITALS: BP_SYST 100; BP_SYST 163; BP_DIAS 58; BP_DIAS 85
[2017-08-02 08:00] VITALS: BP 177/57
[2017-08-02] MEDS: OMEGA PO SCH (08:29)
[2017-08-02] MEDS: DICLOFENAC SOD 100 GM GEL TOP SCH ×4 (08:29→20:36)
[2017-08-02] MEDS: [UNRECOGNIZED DRUG - OTHER] PO SCH (08:29)
[2017-08-02] MEDS: [UNRECOGNIZED DRUG - OTHER] TP SCH ×2 (08:29→20:36)
[2017-08-02] MEDS: PREGABALIN 25 MG CAP PO SCH (08:30)
[2017-08-02] MEDS: CALCIUM ACETATE 667 MG CAP PO SCH ×3 (08:30→17:16)
[2017-08-02] MEDS: ALPHA D GALACTOSIDASE PO SCH ×3 (08:30→17:15)
[2017-08-02] MEDS: MULTIVITAMINS TAB PO SCH (08:31)
[2017-08-02] MEDS: DOCUSATE SODIUM 100 MG CAP PO SCH ×3 (08:31→20:40)
[2017-08-02] MEDS: BUMETANIDE 2 MG TAB PO SCH (08:31)
[2017-08-02] MEDS: oxyCODONE HCL 5 MG CAP PO PRN (10:34)
[2017-08-02] MEDS ORDERED: PNEUMOC 13-VAL CONJ-DIP CRM/PF 0.5 ML SYR IM ONLY ONE (11:10)
[2017-08-02] MEDS: INSULIN HUM LISPRO 100 UN/ML 3 ML VIAL SUBQ PRN ×2 (12:17→17:23)
[2017-08-02 16:12] VITALS: BP 118/58
[2017-08-02] MEDS: INSULIN GLARGINE 100 U/ML 3 ML PEN SUBQ SCH (20:36)
[2017-08-02] MEDS: PREGABALIN 50 MG CAP PO SCH (20:37)
[2017-08-02] MEDS ORDERED: DOCUSATE SODIUM 100 MG CAP PO PRN (20:55)
[2017-08-03] MEDS: MULTIVITAMINS TAB PO SCH (08:28)
[2017-08-03] MEDS: DICLOFENAC SOD 100 GM GEL TOP SCH ×4 (08:28→20:27)
[2017-08-03] MEDS: [UNRECOGNIZED DRUG - OTHER] PO SCH (08:28)
[2017-08-03] MEDS: ALPHA D GALACTOSIDASE PO SCH ×3 (08:28→17:34)
[2017-08-03] MEDS: PREGABALIN 25 MG CAP PO SCH (08:28)
[2017-08-03] MEDS: OMEGA PO SCH (08:28)
[2017-08-03] MEDS: CALCIUM ACETATE 667 MG CAP PO SCH ×3 (08:28→17:35)
[2017-08-03] MEDS: [UNRECOGNIZED DRUG - OTHER] TP SCH ×2 (08:28→20:31)
[2017-08-03 09:46] VITALS: BP 147/57
[2017-08-03] MEDS: oxyCODONE HCL 5 MG CAP PO PRN ×2 (10:55→18:20)
[2017-08-03] MEDS: MIDODRINE 2.5 MG TAB PO SCH (12:10)
[2017-08-03] MEDS: PREGABALIN 50 MG CAP PO SCH (20:27)
[2017-08-03] MEDS: INSULIN GLARGINE 100 U/ML 3 ML PEN SUBQ SCH (20:28)
[2017-08-03] MEDS: INSULIN HUM LISPRO 100 UN/ML 3 ML VIAL SUBQ PRN (20:37)
[2017-08-03 21:33] VITALS: BP 170/60
[2017-08-04 07:36] VITALS: BP 126/61
[2017-08-04 08:24] VITALS: BP 141/45
[2017-08-04] MEDS: OMEGA PO SCH (08:31)
[2017-08-04] MEDS: [UNRECOGNIZED DRUG - OTHER] PO SCH (08:31)
[2017-08-04] MEDS: ALPHA D GALACTOSIDASE PO SCH ×3 (08:31→17:17)
[2017-08-04] MEDS: DICLOFENAC SOD 100 GM GEL TOP SCH ×4 (08:31→20:37)
[2017-08-04] MEDS: [UNRECOGNIZED DRUG - OTHER] TP SCH ×2 (08:31→20:44)
[2017-08-04] MEDS: MULTIVITAMINS TAB PO SCH (08:32)
[2017-08-04] MEDS: PREGABALIN 25 MG CAP PO SCH (08:32)
[2017-08-04] MEDS: BUMETANIDE 2 MG TAB PO SCH (08:32)
[2017-08-04] MEDS: CALCIUM ACETATE 667 MG CAP PO SCH ×3 (08:32→17:17)
[2017-08-04] MEDS: oxyCODONE HCL 5 MG CAP PO PRN (10:46)
[2017-08-04 16:20] VITALS: BP 100/58
[2017-08-04] MEDS: PREGABALIN 50 MG CAP PO SCH (20:38)
[2017-08-04] MEDS: INSULIN GLARGINE 100 U/ML 3 ML PEN SUBQ SCH (20:38)
[2017-08-04] MEDS: INSULIN HUM LISPRO 100 UN/ML 3 ML VIAL SUBQ PRN (20:44)
[2017-08-05 07:47] VITALS: BP 132/68
[2017-08-05] MEDS: [UNRECOGNIZED DRUG - OTHER] PO SCH (08:44)
[2017-08-05] MEDS: DICLOFENAC SOD 100 GM GEL TOP SCH ×4 (08:44→21:03)
[2017-08-05] MEDS: CALCIUM ACETATE 667 MG CAP PO SCH ×3 (08:44→17:19)
[2017-08-05] MEDS: [UNRECOGNIZED DRUG - OTHER] TP SCH ×2 (08:44→21:00)
[2017-08-05] MEDS: MULTIVITAMINS TAB PO SCH (08:44)
[2017-08-05] MEDS: OMEGA PO SCH (08:44)
[2017-08-05] MEDS: PREGABALIN 25 MG CAP PO SCH (08:44)
[2017-08-05] MEDS: ALPHA D GALACTOSIDASE PO SCH ×3 (08:45→17:19)
[2017-08-05] MEDS: BUMETANIDE 2 MG TAB PO SCH (08:46)
[2017-08-05 15:45] VITALS: BP 124/54
[2017-08-05] MEDS: INSULIN HUM LISPRO 100 UN/ML 3 ML VIAL SUBQ PRN (17:17)
[2017-08-05] MEDS: INSULIN GLARGINE 100 U/ML 3 ML PEN SUBQ SCH (21:00)
[2017-08-05] MEDS: PREGABALIN 50 MG CAP PO SCH (21:03)
[2017-08-06 07:50] VITALS: BP 135/53
[2017-08-06] MEDS: DICLOFENAC SOD 100 GM GEL TOP SCH ×4 (08:36→20:56)
[2017-08-06] MEDS: [UNRECOGNIZED DRUG - OTHER] TP SCH ×2 (08:36→20:56)
[2017-08-06] MEDS: ALPHA D GALACTOSIDASE PO SCH ×3 (08:36→17:31)
[2017-08-06] MEDS: CALCIUM ACETATE 667 MG CAP PO SCH ×3 (08:37→17:31)
[2017-08-06] MEDS: PREGABALIN 25 MG CAP PO SCH (08:37)
[2017-08-06] MEDS: MULTIVITAMINS TAB PO SCH (08:37)
[2017-08-06] MEDS: OMEGA PO SCH (08:41)
[2017-08-06] MEDS: DHA PO SCH (08:41)
[2017-08-06] MEDS: EPA PO SCH (08:41)
[2017-08-06] MEDS: KRILL OIL PO SCH (08:41)
[2017-08-06] MEDS: oxyCODONE HCL 5 MG CAP PO PRN (10:31)
[2017-08-06] MEDS: MIDODRINE 2.5 MG TAB PO SCH (11:53)
[2017-08-06] MEDS: INSULIN HUM LISPRO 100 UN/ML 3 ML VIAL SUBQ PRN (17:12)
[2017-08-06] MEDS: PREGABALIN 50 MG CAP PO SCH (20:56)
[2017-08-06] MEDS: INSULIN GLARGINE 100 U/ML 3 ML PEN SUBQ SCH (20:59)
[2017-08-07 07:48] VITALS: BP 159/54
[2017-08-07] MEDS: KRILL OIL PO SCH (08:27)
[2017-08-07] MEDS: BUMETANIDE 2 MG TAB PO SCH (08:27)
[2017-08-07] MEDS: ALPHA D GALACTOSIDASE PO SCH ×3 (08:27→17:01)
[2017-08-07] MEDS: OMEGA PO SCH (08:27)
[2017-08-07] MEDS: EPA PO SCH (08:27)
[2017-08-07] MEDS: MULTIVITAMINS TAB PO SCH (08:27)
[2017-08-07] MEDS: DHA PO SCH (08:27)
[2017-08-07] MEDS: [UNRECOGNIZED DRUG - OTHER] TP SCH ×2 (08:28→20:25)
[2017-08-07] MEDS: PREGABALIN 25 MG CAP PO SCH (08:28)
[2017-08-07] MEDS: DICLOFENAC SOD 100 GM GEL TOP SCH ×4 (08:28→20:25)
[2017-08-07] MEDS: CALCIUM ACETATE 667 MG CAP PO SCH ×3 (08:31→16:57)
[2017-08-07] MEDS: oxyCODONE HCL 5 MG CAP PO PRN (10:31)
--- NOTE | 2017-08-07 16:12 | Medical Nutrition Therapy ---
Nutrition Anthropometrics Height (Inches): 64.00 Height (Calculated Centimeters: 162.282537 Weight (Pounds): 234 Weight (Calculated Kilograms): 106.538 BMI Calculated: 42.70 Errol Nutrition Score: Probably Inadequate Errol Nutrition Risk Score: 12 Dietary Referral Nutrition Risk Factors: Diff. Swallowing Nutrition Risk Comment: Physical Findings Physical Appearance: Morbidly Obese 40+ Skin Appearance Skin Appearance: Edema Edema Location Modifier: Left Edema Location: Knee Type of Edema: Degree of Edema: Gastrointestinal Symptoms GI Symtoms: Nausea Tube Present: Bowel Sounds: Recent Bowel Pattern: Stool Characteristics: Nutritional Diagnosis Nutritional Risk Acuity 1: Acute/ES Renal Nutritional Risk Acuity 3: GERD, Morbid Obesity Nutritional Risk Acuity 4: Good Appetite Past Medical History: CHF, T2DM, GERD, diabetic neuropathy, ESRD, sleep apnea,CAD, colostomy, COPD, morbid obesity Nutritional Acuity: 3-Mild Nutrition Diagnosis: Increased Nutrient Needs Nutrition Problem/Etiology/Sym: Increased nutrient needs related to status post hip fracture and ESRD as evidenced by dialysis. Energy Requirement: 2580 (per Dialysis) Protein Requirement: 103 (per Dialysis) Fluid Requirement: 1500 (per Dialysis) Diet Type: Regular Nutrition Intervention: Cont diet as ordered, Encourage intake, Nutrition support Drug: Diuretics Optional Order Time?: No Diet Comment To RSA: Protein powder in appropriate food. Offer Sugar Free Nutritional Supplement Nutrition Monitoring & Eval Nutrition Goals: Eat 50-100% Meal RD Patient Assessment Time: [address] Assessment Type: RD Re-Assessment Patient Nutrition Acuity: 3-Mild Follow Up Date: Aug 14, 2017 Nutritional Comment: Pt. admitted status post pubic ramus fracture from [facility]. Pt is on dialysis with ESRD. PMH: T2DM sleep apnea, morbid obesity, GERD, COPD, CAD, CHF, diabetic neuropathy. Pt has a colostomy. Will comply with diabetic and renal diet, offering high protein foods. Pt on diuretics and insulin 07/25)WBG 166. Will continue to monitor weight, labs, po intake. Weight will shift significantly due to dialysis 07/30)Pt. admitted status post pubic ramus fracture from [facility]. Pt is on dialysis with ESRD. PMH: T2DM sleep apnea, morbid obesity, GERD, COPD, CAD, CHF, diabetic neuropathy. Pt has a colostomy. 07/30) Labs BG 224 Regular diet PO intake 87% x past 4 meals. 08/07) Glu range 108-100. No other significant labs. Weight 2/26 was 106kg. Po intake 90-100%. Continue to encourage high protein foods, comply with diabetic and renal diet. Monitor BS, labs, weight, po intake. QUYEN JOSE Aug 07, 2017 10:04
--- NOTE | 2017-08-07 16:16 | OT ECF NOTE ---
Type of Note: 2-week progress note Primary Medical Diagnosis: Generalized weakness s/p left pubic ramus fx and left knee sprain sustained from fall 07/12/17. Occupational Therapy Evaluation Date: 07/24/17 SUBJECTIVE: Prior Hospitalization: [facility] 07/13/17 thru 07/24/16. Pt receives dialysis 3x/ week. Prior Level of Function: Pt receives extensive assist for all ADLs and IADLs. She has [facility] providing ASSOCIATE PROFESSOR OF ENGLISH assist 2x/day. Her spouse also provides extensive assist for ADLs/IADLs. She ambulates household distances with a RW and utilizes a power w/c for primary mobility. Prior Living Status: Senior housing, Spouse Community Services: Home health care, No known needs Home Accessibility: All needs on one level, Tub/shower combination Equipment Owned: Front wheeled walker Extended tub bench Power Wheelchair Lift Chair Adjustable bed with bed pole Medical Complications/Past Medical History: Chronic back pain, Type 2 DM, End Stage Renal Disease (receives dialysis 3x/week) Psychosocial Support: Supportive spouse Pain Scale (0-10): 3/10 in left lower extremity-ice/emotional support/ positioning provided OBJECTIVE: Strength: (Not tested at this time) MMT: Right Left Shoulder Flexion [*] [*] Elbow Flexion [*] [*] Wrist Extension [*] [*] Agricultural Research Technician [*] [*] (5= normal, 4= good, 3= fair, 2= poor, 1= trace) ROM: Both upper extremities, WFL Functional Transfer: Assistive Device: Rolling walker for stand pivot transfers Transfer Ability: Min A/CGA with RW. CGA with EZ lift. Continue to recommend EZ lift transfers with nursing. ADL: Upper body dressing: Assistive device: Spouse assisted with dressing prior to hospital admission Upper body dressing ability: Minimum assistance Lower body dressing: Assistive device: Spouse assisted with dressing prior to hospital admission Lower body dressing ability: Total assistance Toileting: Assistive device: Patient completes all colostomy care from power w/c at home. Reports she does not ambulate to bathroom or complete toilet transfers. Toileting ability: Total assistance Grooming/hygiene: Assistive device: Grooming ability: Minimum assistance Bathing: Assistive device: Bathing ability: N/T. Patient reports her spouse assisted with sponge baths prior to admission. Standardized Assessment: Susy Index of Activities of Daily Livin/20 at initial evaluation (2/13 /18). 02/28 at 2-week progress note (08/07/17). ASSESSMENT: Lizbeth has demonstrated improved strength and tolerance for functional transfers and engagement in ADLs. Upon initial evaluation, pt was utilizing a leelee lift for transfers. Currently, she tolerates stand pivot transfers with RW and CGA/Min A. At PLOF, pt was (I)ly completing stand pivot transfers and ambulating household distances with a RW. Pt is progressing with skilled OT services and will continue to benefit from skilled OT services to improve strength and consistency with functional transfers. Problem List/Current Limitations: Pain Generalized weakness Decreased initiation Lack of motivation Short Term Goals: 1) Pt will be Min A stand-pivot transfers. GOAL MET. NEW GOAL: Pt will be SBA stand pivot transfers. 2) Pt will be SBA grooming/hygiene seated. Progressing towards. 3) Pt will be Mod A managing colostomy seated. Progressing towards. NEW GOAL: Pt Susy Index of ADLs score will improve by 2 points. Geographic Information Systems Manager Goals: Return home with assistance from spouse and HH services. Patient Goals: Return home and "be able to walk about 80ft with a walker" Rehabilitation Prognosis: Poor Barriers to Discharge: Decreased motivation, pain PLAN: The patient will benefit from skilled occupational therapy services 5 times per week for 2 weeks including: Ther ex ADL training Safety training Ther act IADL training Transfer training Adaptive equip training Bed mobility Energy conservation Thank you for this referral. If you have any questions, concerns, or comments about this report or plan, please contact me at . Gilda Warner MS, OTR/L Occupational Therapist [place]
[2017-08-07 17:20] VITALS: BP 100/58
[2017-08-07] MEDS: PREGABALIN 50 MG CAP PO SCH (20:25)
[2017-08-07] MEDS: INSULIN GLARGINE 100 U/ML 3 ML PEN SUBQ SCH (20:30)
[2017-08-07] MEDS: INSULIN HUM LISPRO 100 UN/ML 3 ML VIAL SUBQ PRN (21:32)
[2017-08-08 07:57] VITALS: BP 129/50
[2017-08-08] MEDS: ALPHA D GALACTOSIDASE PO SCH ×3 (08:41→17:12)
[2017-08-08] MEDS: KRILL OIL PO SCH (08:42)
[2017-08-08] MEDS: OMEGA PO SCH (08:42)
[2017-08-08] MEDS: DICLOFENAC SOD 100 GM GEL TOP SCH ×4 (08:42→20:48)
[2017-08-08] MEDS: MULTIVITAMINS TAB PO SCH (08:42)
[2017-08-08] MEDS: DHA PO SCH (08:42)
[2017-08-08] MEDS: EPA PO SCH (08:42)
[2017-08-08] MEDS: CALCIUM ACETATE 667 MG CAP PO SCH ×3 (08:42→17:12)
[2017-08-08] MEDS: [UNRECOGNIZED DRUG - OTHER] TP SCH ×2 (08:42→20:47)
--- NOTE | 2017-08-08 08:50 | Hospitalist Progress Note ---
Subjective Progress Notes Subjective No new concerns. Physical Exam Vital Signs Date Time Temp Pulse Resp B/P (MAP) Pulse Ox O2 Delivery O2 Flow Rate FiO2 08/08/17 07:57 97.7 74 12 129/50 (76) 96 Nasal Cannula 2.0 General Appearance: Alert, Awake, No Acute Distress, Afebrile Neuro: No Gross deficits Cardiovascular: Regular Rate and Rhythm (With 2/4 MIGUEL ANGEL.) Respiratory: No Respiratory Distress, Clear to Auscultation (Anteriorly.) GI: Soft and Non-Tender (Obese,) Extremities: Other Psych: Appropriate Mood & Affect (Dialysis fistula in place.) Assessment and Plan Problems: (1) Inferior pubic ramus fracture Status: Acute Assessment & Plan: Secondary to a fall. There were no worrisome symptoms prior to the event. She was on a fentanyl patch and prn oxycodone for pain control. She had side effects from the fentanyl and it was removed. She is on ECF to work with therapy, so that she can try to go home. She required a walker and a lift chair prior to the fracture. Morbid obesity is also a complicating factor. She continues to work with PT/OT. (2) Left knee sprain Status: Acute Assessment & Plan: Secondary to the fall on 07/13. She had an X[facility] at [facility] and then was seen by Ortho on 07/21. They recommended conservative therapy and Voltaren gel. (3) DM2 (diabetes mellitus, type 2) Status: Chronic Assessment & Plan: Chronically on Lantus and Humalog SSI, which will be continued. She doesn't really have a consistent SSI at home, so will start with our level 3. (4) ESRD on hemodialysis Status: Chronic Assessment & Plan: She receives dialysis on //. She is gets Bumex on non- dialysis days and gets Midodrine the day of dialysis. (5) Chronic diastolic heart failure Status: Chronic Assessment & Plan: No issues since dialysis initiated. (6) Sleep apnea Status: Chronic Assessment & Plan: Chronically uses a CPAP. (7) Diabetic neuropathy Status: Chronic Assessment & Plan: We increased Lyrica to 150mg at HS per the patient's request. Her neuropathy symptoms are more manageable now. (8) CAD (coronary artery disease) Status: Chronic Assessment & Plan: No current issues. Not on any secondary prevention medications. (9) COPD (chronic obstructive pulmonary disease) Status: Chronic Assessment & Plan: Lungs are clear. No current issues. Time Spent on Plan of Care: < 30 min Heart Failure Ejection Fraction %: 72 RVSP (mmHg): 46 NYHA Class: III Is Patient on JANESSA Inhibitor?: No Is Patient on Beta Rabia?: No Admission Weight: 250 MARK PAYAN MD Aug 08, 2017 08:50
[2017-08-08] MEDS: PREGABALIN 25 MG CAP PO SCH (09:07)
[2017-08-08] MEDS: oxyCODONE HCL 5 MG CAP PO PRN (10:37)
[2017-08-08] MEDS: MIDODRINE 2.5 MG TAB PO SCH (11:58)
[2017-08-08 15:10] VITALS: BP 104/62
[2017-08-08] MEDS: INSULIN HUM LISPRO 100 UN/ML 3 ML VIAL SUBQ PRN (17:12)
[2017-08-08] MEDS: PREGABALIN 50 MG CAP PO SCH (20:47)
[2017-08-08] MEDS: INSULIN GLARGINE 100 U/ML 3 ML PEN SUBQ SCH (20:47)
[2017-08-09] MEDS: CALCIUM ACETATE 667 MG CAP PO SCH ×3 (08:33→17:11)
[2017-08-09] MEDS: ALPHA D GALACTOSIDASE PO SCH ×3 (08:33→17:11)
[2017-08-09] MEDS: [UNRECOGNIZED DRUG - OTHER] TP SCH ×2 (09:00→20:28)
[2017-08-09] MEDS: BUMETANIDE 2 MG TAB PO SCH (09:39)
[2017-08-09] MEDS: DICLOFENAC SOD 100 GM GEL TOP SCH ×4 (09:40→20:28)
[2017-08-09] MEDS: PREGABALIN 25 MG CAP PO SCH (09:40)
[2017-08-09] MEDS: MULTIVITAMINS TAB PO SCH (09:40)
[2017-08-09] MEDS: KRILL OIL PO SCH (09:42)
[2017-08-09] MEDS: DHA PO SCH (09:42)
[2017-08-09] MEDS: EPA PO SCH (09:42)
[2017-08-09] MEDS: OMEGA PO SCH (09:42)
[2017-08-09 10:09] VITALS: BP 118/62
[2017-08-09] MEDS: oxyCODONE HCL 5 MG CAP PO PRN (10:37)
[2017-08-09] MEDS: INSULIN HUM LISPRO 100 UN/ML 3 ML VIAL SUBQ PRN (12:20)
[2017-08-09 16:50] VITALS: BP 102/58
[2017-08-09] MEDS: INSULIN GLARGINE 100 U/ML 3 ML PEN SUBQ SCH (20:27)
[2017-08-09] MEDS: PREGABALIN 50 MG CAP PO SCH (20:27)
[2017-08-10 08:29] VITALS: BP 154/57
[2017-08-10] MEDS: MULTIVITAMINS TAB PO SCH (08:32)
[2017-08-10] MEDS: ALPHA D GALACTOSIDASE PO SCH ×3 (08:32→17:32)
[2017-08-10] MEDS: EPA PO SCH (08:34)
[2017-08-10] MEDS: KRILL OIL PO SCH (08:34)
[2017-08-10] MEDS: DHA PO SCH (08:34)
[2017-08-10] MEDS: OMEGA PO SCH (08:34)
[2017-08-10] MEDS: PREGABALIN 25 MG CAP PO SCH (08:35)
[2017-08-10] MEDS: [UNRECOGNIZED DRUG - OTHER] TP SCH ×2 (08:36→20:43)
[2017-08-10] MEDS: DICLOFENAC SOD 100 GM GEL TOP SCH ×4 (08:36→20:42)
[2017-08-10] MEDS: CALCIUM ACETATE 667 MG CAP PO SCH ×3 (08:41→17:32)
[2017-08-10] MEDS: INSULIN HUM LISPRO 100 UN/ML 3 ML VIAL SUBQ PRN ×3 (11:31→20:43)
[2017-08-10] MEDS: MIDODRINE 2.5 MG TAB PO SCH (12:15)
[2017-08-10 20:20] VITALS: BP 100/50
[2017-08-10] MEDS: PREGABALIN 50 MG CAP PO SCH (20:42)
[2017-08-10] MEDS: INSULIN GLARGINE 100 U/ML 3 ML PEN SUBQ SCH (20:42)
[2017-08-11] MEDS: ALPHA D GALACTOSIDASE PO SCH ×3 (08:07→17:32)
[2017-08-11] MEDS: CALCIUM ACETATE 667 MG CAP PO SCH ×3 (08:08→17:32)
[2017-08-11 08:10] VITALS: BP 121/47
[2017-08-11] MEDS: KRILL OIL PO SCH (09:00)
[2017-08-11] MEDS: OMEGA PO SCH (09:00)
[2017-08-11] MEDS: EPA PO SCH (09:00)
[2017-08-11] MEDS: PREGABALIN 25 MG CAP PO SCH (09:00)
[2017-08-11] MEDS: DICLOFENAC SOD 100 GM GEL TOP SCH ×4 (09:00→20:59)
[2017-08-11] MEDS: DHA PO SCH (09:00)
[2017-08-11] MEDS: MULTIVITAMINS TAB PO SCH (09:00)
[2017-08-11] MEDS: BUMETANIDE 2 MG TAB PO SCH (09:02)
--- NOTE | 2017-08-11 09:25 | PT ECF NOTE ---
Type of Note: 2 week progress Note Primary Medical Diagnosis: L) inferior pubic ramus fx, L) knee sprain Physical Therapy Evaluation Date: 07/24/17; Progress note for 08/07/17 SUBJECTIVE: Prior Hospitalization: [facility] 07/13/17-07/24/17 Prior Level of Function: Pt reports that she was completing stand pivot transfers with RW to/from power chair, as well as ambulating 80' at a time with RW Prior Living Status: Senior housing, Spouse Community Services: Home health care, 2x/day Home Accessibility: All needs on one level Equipment Owned: Front wheeled walker, power chair, adjustable bed, power lift/recliner chair Medical Complications/Past Medical History: ESRD, DM2. SCAR, Pulmonary HTN, CHF Psychosocial Support: Supportive Pain Scale (0-10): 3/10, L) hip and L) knee OBJECTIVE: Strength: Pt now able to lift B) LE's against gravity and ambulates to/from power chair; functional strength at 3/5 overall. ROM: WFL L) LE Sensation: (please note any abnormalities): EMR reports neuropathy of hands and feet Other Neuro findings: see EMR Bed Mobility: SBA/CGA for supine to sit; Min assist required for LE's during sit to supine. Transfers: Min assist at posterior thighs with tactile cues for sit to stand from bed; Mod assist at posterior thighs from lower surface of pwr W/C Gait: Pt tolerated side-step along edge of bed x 6' with today's visits. Stairs: Not attempted at this time Timed Up and Go (>12 seconds indicated increased risk for falls): Pt not yet able to ambulate a full 20' without a rest break. ASSESSMENT: Pt is making excellent progress with regular participation in therapy. PT/OT coordinate care around dialysis transport to ensure functional gains with applicable activities on ,,and Sun. and , pt has progressed with greater indep and distance ambulation rather than just a transfer to the power W/C. Pt would like to address improved tolerance to upright sitting time in power chair, to simulate typical transportation to/from dialysis from home, as well as the ability to complete a car transfer to allow for doctor's appointments out of town. Additionally, pt is agreeable to addressing greater functional distance ambulation with FWW. Problem List/Current Limitations: Pain, Decreased activity rosie, Decreased strength, Decreased ROM, Decreased initiation Short Term Goals: 1: Pt to complete bed mobility with SBA/Modified indep, with simulation of pivot pole leverage provided to pt. 2: Pt to complete STS transfer from a variety of surfaces, CGA/Min assist to stabilize walker or provide leverage similar to pivot pole or grab bar. 3: Pt to complete stand step pivot transfers to/from chair with CGA/Theo and least restrictive AD. 4: Pt to ambulate 15' with least restrictive AD and CGA/Theo. 5. Pt to be Min/Mod assist for car transfer to allow for out of town doctor' s visits. Lathe Tender Goals: Pt to discharge to safest location to allow for continued functional gains Patient Goals: Discharge home Rehabilitation Prognosis: Good Barriers for Discharge: Pt was previously receiving extensive assistance from her spouse and [facility] services, but has demonstrated a willingness to return to prior level of function. PLAN: The patient will benefit from skilled physical therapy services 5 times per week for 2 weeks to address updated goals which also address car transfers for return to prior level of function., including: Therapeutic Exercise, Therapeutic Activities, Transfer Training, Gait Training , Manual Therapy, Safety Training, Neuromuscular Re-educ., Pt/Caregiver Training, Bed Mobility Thank you for this referral. If you have any questions, concerns, or comments about this report or plan, please contact me at . [facility]
[2017-08-11] MEDS: [UNRECOGNIZED DRUG - OTHER] TP SCH ×2 (10:00→20:48)
[2017-08-11] MEDS: oxyCODONE HCL 5 MG CAP PO PRN (14:22)
[2017-08-11 17:46] VITALS: BP 160/47
[2017-08-11] MEDS: PREGABALIN 50 MG CAP PO SCH (20:59)
[2017-08-11] MEDS: INSULIN GLARGINE 100 U/ML 3 ML PEN SUBQ SCH (21:00)
[2017-08-12 07:55] VITALS: BP 143/62
[2017-08-12] MEDS: PREGABALIN 25 MG CAP PO SCH (08:28)
[2017-08-12] MEDS: OMEGA PO SCH (08:28)
[2017-08-12] MEDS: DHA PO SCH (08:28)
[2017-08-12] MEDS: MULTIVITAMINS TAB PO SCH (08:28)
[2017-08-12] MEDS: EPA PO SCH (08:28)
[2017-08-12] MEDS: ALPHA D GALACTOSIDASE PO SCH ×3 (08:28→17:24)
[2017-08-12] MEDS: KRILL OIL PO SCH (08:28)
[2017-08-12] MEDS: [UNRECOGNIZED DRUG - OTHER] TP SCH ×2 (08:29→20:30)
[2017-08-12] MEDS: CALCIUM ACETATE 667 MG CAP PO SCH ×3 (08:29→17:25)
[2017-08-12] MEDS: DICLOFENAC SOD 100 GM GEL TOP SCH ×4 (08:29→20:37)
[2017-08-12] MEDS: BUMETANIDE 2 MG TAB PO SCH (08:32)
[2017-08-12 17:04] VITALS: BP 121/44
[2017-08-12] MEDS: INSULIN HUM LISPRO 100 UN/ML 3 ML VIAL SUBQ PRN (17:26)
[2017-08-12] MEDS: INSULIN GLARGINE 100 U/ML 3 ML PEN SUBQ SCH (20:37)
[2017-08-12] MEDS: PREGABALIN 50 MG CAP PO SCH (20:38)
[2017-08-13 07:48] VITALS: BP 140/51
[2017-08-13] MEDS: KRILL OIL PO SCH (09:06)
[2017-08-13] MEDS: CALCIUM ACETATE 667 MG CAP PO SCH ×3 (09:06→17:26)
[2017-08-13] MEDS: DICLOFENAC SOD 100 GM GEL TOP SCH (09:06)
[2017-08-13] MEDS: ALPHA D GALACTOSIDASE PO SCH ×3 (09:06→17:26)
[2017-08-13] MEDS: DHA PO SCH (09:06)
[2017-08-13] MEDS: OMEGA PO SCH (09:06)
[2017-08-13] MEDS: EPA PO SCH (09:06)
[2017-08-13] MEDS: [UNRECOGNIZED DRUG - OTHER] TP SCH (09:07)
[2017-08-13] MEDS: PREGABALIN 25 MG CAP PO SCH (09:07)
[2017-08-13] MEDS: MULTIVITAMINS TAB PO SCH (09:07)
[2017-08-13] MEDS: MIDODRINE 2.5 MG TAB PO SCH (12:03)
--- NOTE | 2017-08-13 16:40 | Medical Nutrition Therapy ---
Nutrition Anthropometrics Height (Inches): 64.00 Height (Calculated Centimeters: 162.603607 Weight (Pounds): 231 (dry wt per dialysis 105.5) Weight (Calculated Kilograms): 104.780 BMI Calculated: 42.70 Errol Nutrition Score: Probably Inadequate Errol Nutrition Risk Score: 15 Dietary Referral Nutrition Risk Factors: Diff. Swallowing Nutrition Risk Comment: Physical Findings Physical Appearance: Morbidly Obese 40+ Skin Appearance Skin Appearance: Edema Edema Location Modifier: Left Edema Location: Knee Type of Edema: Degree of Edema: Gastrointestinal Symptoms GI Symtoms: Nausea Tube Present: Bowel Sounds: Recent Bowel Pattern: Stool Characteristics: Nutritional Diagnosis Nutritional Risk Acuity 1: Acute/ES Renal (on dialysis) Nutritional Risk Acuity 3: GERD, Morbid Obesity Nutritional Risk Acuity 4: Good Appetite Past Medical History: CHF, T2DM, GERD, diabetic neuropathy, ESRD, sleep apnea,CAD, colostomy, COPD, morbid obesity Nutritional Acuity: 1-High Nutrition Diagnosis: Increased Nutrient Needs Nutrition Etiology: Physiological Causes Nutrition Problem/Etiology/Sym: Increased nutrient needs related to status post hip fracture and ESRD as evidenced by dialysis. Energy Requirement: 2580 (per Dialysis) Protein Requirement: 103 (per Dialysis) Fluid Requirement: 1500 (per Dialysis) Diet Type: Regular Nutrition Intervention: Cont diet as ordered, Encourage intake, Between meal supplement, Nutrition support Drug: Diuretics Optional Order Time?: No Additional Diet Restrictions: ENCOURAGE HIGH PROTEIN FOOD WITH EACH MEAL Diet Comment To RSA: Protein powder in appropriate food. Offer Sugar Free Nutritional Supplement Nutrition Monitoring & Eval Nutrition Goals: Eat 75-100% Meal Nutrition Follow-Up: Fair Intake RD Patient Assessment Time: [address] Assessment Type: RD Re-Assessment Patient Nutrition Acuity: 1-High Follow Up Date: Aug 21, 2017 Nutritional Comment: Pt. admitted status post pubic ramus fracture from [facility]. Pt is on dialysis with ESRD. PMH: T2DM sleep apnea, morbid obesity, GERD, COPD, CAD, CHF, diabetic neuropathy. Pt has a colostomy. Will comply with diabetic and renal diet, offering high protein foods. Pt on diuretics and insulin 07/25)WBG 166. Will continue to monitor weight, labs, po intake. Weight will shift significantly due to dialysis 07/30)Pt. admitted status post pubic ramus fracture from [facility]. Pt is on dialysis with ESRD. PMH: T2DM sleep apnea, morbid obesity, GERD, COPD, CAD, CHF, diabetic neuropathy. Pt has a colostomy. 07/30) Labs BG 224 Regular diet PO intake 87% x past 4 meals. 08/07) Glu range 108-100. No other significant labs. Weight 08/06 was 106kg. Po intake 90-100%. Continue to encourage high protein foods, comply with diabetic and renal diet. Monitor BS, labs, weight, po intake. 08/13 Pt cont on CATHERINE. Wt fluctuating between dialysis. Dialysis dry wt is 105.5. Alb in dialyis has declined to 3.2. Pt is not eating a high protein food at each meal and only occasionally taking a nutr supplment. Will encourage pt to increase protein intake to assist with healing fx and r/t increased protien needs with dialysis. Will cont to monitor and encourage intake. DONNA ISBELL Aug 13, 2017 16:40
[2017-08-13 16:45] VITALS: BP 102/60
[2017-08-13] MEDS: INSULIN HUM LISPRO 100 UN/ML 3 ML VIAL SUBQ PRN (17:28)
[2017-08-13] MEDS: PREGABALIN 50 MG CAP PO SCH (20:50)
[2017-08-13] MEDS: INSULIN GLARGINE 100 U/ML 3 ML PEN SUBQ SCH (20:55)
[2017-08-14 07:55] VITALS: BP 130/47
[2017-08-14] MEDS: ALPHA D GALACTOSIDASE PO SCH ×3 (08:31→16:59)
[2017-08-14] MEDS: OMEGA PO SCH (08:32)
[2017-08-14] MEDS: KRILL OIL PO SCH (08:32)
[2017-08-14] MEDS: DHA PO SCH (08:32)
[2017-08-14] MEDS: PREGABALIN 25 MG CAP PO SCH (08:32)
[2017-08-14] MEDS: EPA PO SCH (08:32)
[2017-08-14] MEDS: BUMETANIDE 2 MG TAB PO SCH (08:33)
[2017-08-14] MEDS: MULTIVITAMINS TAB PO SCH (08:33)
[2017-08-14] MEDS: CALCIUM ACETATE 667 MG CAP PO SCH ×3 (08:33→16:59)
[2017-08-14] MEDS: oxyCODONE HCL 5 MG CAP PO PRN (10:35)
[2017-08-14] MEDS: INSULIN HUM LISPRO 100 UN/ML 3 ML VIAL SUBQ PRN ×2 (12:24→16:53)
[2017-08-14] MEDS: INSULIN GLARGINE 100 U/ML 3 ML PEN SUBQ SCH (20:26)
[2017-08-14] MEDS: PREGABALIN 50 MG CAP PO SCH (20:26)
[2017-08-14 22:16] VITALS: BP 100/64
[2017-08-15 08:09] VITALS: BP 146/52
[2017-08-15] MEDS: CALCIUM ACETATE 667 MG CAP PO SCH ×3 (08:33→16:55)
[2017-08-15] MEDS: PREGABALIN 25 MG CAP PO SCH (08:34)
[2017-08-15] MEDS: EPA PO SCH (08:34)
[2017-08-15] MEDS: DHA PO SCH (08:34)
[2017-08-15] MEDS: MULTIVITAMINS TAB PO SCH (08:34)
[2017-08-15] MEDS: KRILL OIL PO SCH (08:34)
[2017-08-15] MEDS: ALPHA D GALACTOSIDASE PO SCH ×3 (08:34→16:55)
[2017-08-15] MEDS: OMEGA PO SCH (08:34)
--- NOTE | 2017-08-15 10:48 | Hospitalist Progress Note ---
Subjective Progress Notes Subjective Neuropathy pain is controlled with current dose of Lyrica. Patient is progressing with PT/OT and will discharge soon. Physical Exam Vital Signs Date Time Temp Pulse Resp B/P (MAP) Pulse Ox O2 Delivery O2 Flow Rate FiO2 08/15/17 09:49 95 Nasal Cannula 0.5 08/15/17 08:09 96.6 66 16 146/52 (83) Intake and Output 08/16/17 07:00 Intake Total 100 ml Balance 100 ml Intake Oral 100 ml General Appearance: Alert, Awake, No Acute Distress, Afebrile Neuro: No Gross deficits Eyes: PERRLA Cardiovascular: Regular Rate and Rhythm (With 2/6 MIGUEL ANGEL.), No Edema Respiratory: No Respiratory Distress, Clear to Auscultation GI: Soft and Non-Tender Extremities: Warm, Perfused Psych: Alert & Oriented X3, Appropriate Mood & Affect Assessment and Plan Problems: (1) Inferior pubic ramus fracture Status: Acute Assessment & Plan: Secondary to a fall. There were no worrisome symptoms prior to the event. She was on a fentanyl patch and prn oxycodone for pain control. She had side effects from the fentanyl and it was removed. She is on ECF to work with therapy, and is progressing. She required a walker and a lift chair prior to the fracture. Morbid obesity is also a complicating factor. She continues to work with PT/OT. (2) Left knee sprain Status: Acute Assessment & Plan: Secondary to the fall on 07/13. She had an X-ray at [facility] and then was seen by Ortho on 07/21. They recommended conservative therapy and Voltaren gel. (3) DM2 (diabetes mellitus, type 2) Status: Chronic Assessment & Plan: Chronically on Lantus and Humalog SSI, which will be continued. She doesn't really have a consistent SSI at home, so will start with our level 3. (4) ESRD on hemodialysis Status: Chronic Assessment & Plan: She receives dialysis on . She gets Bumex on non- dialysis days and gets Midodrine the day of dialysis. (5) Chronic diastolic heart failure Status: Chronic Assessment & Plan: No issues since dialysis initiated. (6) Sleep apnea Status: Chronic Assessment & Plan: Chronically uses a CPAP. (7) Diabetic neuropathy Status: Chronic Assessment & Plan: We increased Lyrica to 150mg at HS per the patient's request. Her neuropathy symptoms are now controlled. (8) CAD (coronary artery disease) Status: Chronic Assessment & Plan: No current issues. Not on any secondary prevention medications. (9) COPD (chronic obstructive pulmonary disease) Status: Chronic Assessment & Plan: Lungs are clear. No current issues. Time Spent on Plan of Care: < 30 min Heart Failure Ejection Fraction %: 72 RVSP (mmHg): 46 NYHA Class: III Is Patient on JANESSA Inhibitor?: No Is Patient on Beta Rabia?: No Admission Weight: 250 MARK PAYAN MD Aug 15, 2017 10:48
[2017-08-15] MEDS ORDERED: PREG25 PO (10:56)
--- NOTE | 2017-08-15 11:09 | Hospitalist Depart ---
Discharge Summary Reason for Hosp/Final Diag: (1) Inferior pubic ramus fracture Status: Acute Hospital Course & Plan: Secondary to a fall. There were no worrisome symptoms prior to the event. She was on a fentanyl patch and prn oxycodone for pain control. She had side effects from the fentanyl and it was removed. [facility] transferred [facility] to work with therapy, and did progress. She required a walker and a lift chair prior to the fracture. Morbid obesity was a complicating factor. She will continue with Home Health and physical therapy after discharge. (2) Left knee sprain Status: Acute Hospital Course & Plan: Secondary to the fall on 07/13. She had an x-ray at [facility] and then was seen by Orthopedics on 07/21. They recommended conservative therapy and Voltaren gel. (3) DM2 (diabetes mellitus, type 2) Status: Chronic Hospital Course & Plan: The patient has chronically been on Lantus and Humalog SSI, which will be continued. She didn't have a consistent SSI at home, so was started on sliding scale level 3 during her hospital stay. (4) ESRD on hemodialysis Status: Chronic Hospital Course & Plan: She receives dialysis on //. She gets Bumex on non -dialysis days and gets Midodrine the day of dialysis. (5) Chronic diastolic heart failure Status: Chronic Hospital Course & Plan: No issues since dialysis initiated. (6) Sleep apnea Status: Chronic Hospital Course & Plan: Chronically uses a CPAP. (7) Diabetic neuropathy Status: Chronic Hospital Course & Plan: We increased Lyrica to 150mg at HS per the patient's request. Her neuropathy symptoms were controlled. (8) CAD (coronary artery disease) Status: Chronic Hospital Course & Plan: No issues during her stay. Not on any secondary prevention medications. (9) COPD (chronic obstructive pulmonary disease) Status: Chronic Hospital Course & Plan: No issues during her stay. Departure Weight (Pounds): 231 (dry wt per dialysis 105.5) Weight (Ounces): 14.0 Condition: Improved Discharge: Home, Home Health PT/OT Follow Up For: PT Evaluation and Treat, OT Evaluation and Treat Home Health RN Follow Up For: Nursing Assessment Home Health DATA MANAGER Follow Up For: ADL Assistance Time Spent: < 30 min Discharge Instructions Home Meds Active Scripts Pregabalin (LYRICA) 25 Mg Cap, 225 MG PO DAILY, #90 CAP One po q am and 2 po q HS. Prov:MARK PAYAN MD 08/15/17 Oxycodone Hcl/Acetaminophen (PERCOCET 5-325 MG TABLET) 1 Each Tablet, 1 EACH PO Q6-8H for PAIN, #25 TAB 0 Refills Prov:BILLY WOOTEN MD 07/12/17 Acetaminophen (ACETAMINOPHEN) 500 Mg Tablet, 500 MG PO Q6H Y for PAIN, #50 TAB Prov:MARK PAYAN MD 09/08/15 Insulin Glargine,Hum.rec.anlog (LANTUS SOLOSTAR) 100 Unit/1 Ml Insuln.pen, 22 UNIT SUBQ QHS, #1 BOX Prov:MARK PAYAN MD 09/08/15 [[id number]] 1 EACH TAB No Conflict Check, 1 EACH PO TIDAC Y for PRN , #100 TAB Prov:MARK PAYAN MD 09/08/15 Reported Medications Calcium Acetate (CALCIUM ACETATE) 667 Mg Tablet, 1334 MG PO TIDCF 04/18/17 Bumetanide (BUMETANIDE) 1 Mg Tablet, 2 MG PO non dialysis days 02/14/17 Midodrine Hcl (MIDODRINE HCL) 5 Mg Tablet, 10 MG PO 3XW Take Sunday, Sunday, and Sunday before dialysis treatment 10/25/16 Krill Oil/[place]-3/Dha/Epa (OMEGA-3 KRILL OIL SOFTGEL) 1 Each Capsule, 1 EACH PO DAILY, CAPSULE 07/02/16 [place]-3 Fatty Acids/Fish Oil (OMEGA 3 FISH OIL SOFTGEL) 1 Each Capsule.dr, 1 EACH PO QDAY 07/02/16 Insulin Aspart (NOVOLOG FLEXPEN) 100 Unit/1 Ml Insuln.pen, 15-20 UNIT SQ sliding scale 08/17/15 Oxygen (OXYGEN) Inha, 2 L INH DAILY, L 2L AT NIGHT WITH CPAP 04/22/15 Multivitamin (MULTI VITAMIN DAILY) 1 Each Tablet, 1 EACH PO DAILY 04/29/14 Discontinued Reported Medications Hydrocodone Bit/Acetaminophen (HYDROCODON-ACETAMINOPHEN 5-325) 1 Each Tablet, 1 EACH PO Q8H Y for PAIN, TAB 05/09/17 Pregabalin (LYRICA) 75 Mg Capsule, 75 MG PO BID, CAPSULE 09/03/15 Follow up Referrals: Family Practice - In One Month @ [facility] with Augustine Anna Md Diet: Diabetic Activity: As Tolerated Copies to: AUGUSTINE ANNA MD Venous Thromboembolism Antithrombotics Is Pt On Any Antithrombotics?: No Heart Failure Ejection Fraction %: 72 RVSP (mmHg): 46 NYHA Class: III Is Patient on JANESSA Inhibitor?: No Is Patient on Beta Rabia?: No Admission Weight: 250 Eyns-hn-Ratz Certification Face to Face Home Health Certification Institutional Provider conducted the mtus-oo-jptu encounter. Electronic Undersigning Physician Certifies Home Health. I certify that the patient has been under my care and that I had a iqvm-sm-dimp encounter that meets the physician ohys-oc-bfjh encounter requirements with this patient. This patient is home-bound due to safety issues and continues to require assistance with ADL's. I certify that based on my findings, that Nursing, Aides and the following Home Health services are medically necessary: OT, PT Medical Necessity: Nursing, Rehab Date Face to Face Conducted: Aug 15, 2017 MARK PAYAN MD Aug 15, 2017 11:09
[2017-08-15] MEDS: INSULIN HUM LISPRO 100 UN/ML 3 ML VIAL SUBQ PRN (11:36)
[2017-08-15] MEDS: MIDODRINE 2.5 MG TAB PO SCH (12:02)
--- NOTE | 2017-08-15 16:23 | OT ECF NOTE ---
Type of Note: Discharge Note Primary Medical Diagnosis: Generalized weakness s/p left pubic ramus fx and left knee sprain sustained from fall 07/12/17. Occupational Therapy Evaluation Date: 07/24/17 SUBJECTIVE: Prior Hospitalization: [facility] 07/13/17 thru 07/24/16. Pt receives dialysis 3x/ week. Prior Level of Function: Pt receives extensive assist for all ADLs and IADLs. She has Quality providing MINING ENGINEERING TECHNOLOGIST assist 2x/day. Her spouse also provides extensive assist for ADLs/IADLs. She ambulates household distances with a RW and utilizes a power w/c for primary mobility. Prior Living Status: Senior housing, Spouse Community Services: Home health care, No known needs Home Accessibility: All needs on one level, Tub/shower combination Equipment Owned: Front wheeled walker Extended tub bench Power Wheelchair Lift Chair Adjustable bed with bed pole Medical Complications/Past Medical History: Chronic back pain, Type 2 DM, End Stage Renal Disease (receives dialysis 3x/week) Psychosocial Support: Supportive spouse Pain Scale (0-10): 3/10 in left lower extremity-ice/emotional support/ positioning provided OBJECTIVE: Strength: (Not tested at this time) MMT: Right Left Shoulder Flexion [*] [*] Elbow Flexion [*] [*] Wrist Extension [*] [*] [place] [*] [*] (5= normal, 4= good, 3= fair, 2= poor, 1= trace) ROM: Both upper extremities, WFL Functional Transfer: Assistive Device: Rolling walker Transfer Ability: Mod (I) stand pivot transfers. SBA ambulation x15ft. ADL: Upper body dressing: Assistive device: Spouse assisted with dressing prior to hospital admission Upper body dressing ability: Minimum assistance Lower body dressing: Assistive device: Spouse assisted with dressing prior to hospital admission Lower body dressing ability: Moderate assistance Toileting: Assistive device: Patient completes all colostomy care from power w/c at home. Reports she does not ambulate to bathroom or complete toilet transfers. Toileting ability: Set-up. Pt demonstrates tolerance for safe transfers and good UE strength/fine motor control to manage colostomy. Grooming/hygiene: Assistive device: Seated Grooming ability: Set-up Bathing: Assistive device: Bathing ability: N/T. Patient reports her spouse assisted with sponge baths prior to admission. Standardized Assessment: Susy Index of Activities of Daily Livin/20 at initial evaluation (07/24). 02/28 at 2-week progress note (08/07/17). at discharge (08/15/17). ASSESSMENT: Lizbeth has demonstrated improved strength and tolerance for functional transfers and engagement in ADLs. She has met all skilled OT goals and feels ready to discharge home with assist from spouse, HH PT, and MINING ENGINEERING TECHNOLOGIST assist from [employer]. Pt has all necessary equipment installed at home. Pt presents with no further questions/concerns for OT at time of discharge. Short Term Goals: 1) Pt will be Min A stand-pivot transfers. GOAL MET. NEW GOAL: Pt will be SBA stand pivot transfers. GOAL MET. 2) Pt will be SBA grooming/hygiene seated. GOAL MET. 3) Pt will be Mod A managing colostomy seated. GOAL MET. NEW GOAL: Pt Susy Index of ADLs score will improve by 2 points. GOAL MET. Alf Goals: Return home with assistance from spouse and HH services. Patient Goals: Return home and "be able to walk about 80ft with a walker" Rehabilitation Prognosis: Poor Barriers to Discharge: Decreased motivation, pain PLAN: Discharge home with assist from spouse, HH PT, and MINING ENGINEERING TECHNOLOGIST assist from [employer] Thank you for this referral. If you have any questions, concerns, or comments about this report or plan, please contact me at . Gilda Warner MS, OTR/L Occupational Therapist [place]
[2017-08-15 17:00] VITALS: BP 110/68
[2017-08-15] MEDS: INSULIN GLARGINE 100 U/ML 3 ML PEN SUBQ SCH (20:20)
[2017-08-15] MEDS: PREGABALIN 50 MG CAP PO SCH (20:21)
[2017-08-15] MEDS: ACETAMINOPHEN 325 MG TAB PO PRN (21:03)
[2017-08-16 07:51] VITALS: BP 146/69
[2017-08-16] MEDS: MULTIVITAMINS TAB PO SCH (08:22)
[2017-08-16] MEDS: EPA PO SCH (08:22)
[2017-08-16] MEDS: CALCIUM ACETATE 667 MG CAP PO SCH (08:22)
[2017-08-16] MEDS: DHA PO SCH (08:22)
[2017-08-16] MEDS: KRILL OIL PO SCH (08:22)
[2017-08-16] MEDS: PREGABALIN 25 MG CAP PO SCH (08:22)
[2017-08-16] MEDS: OMEGA PO SCH (08:22)
[2017-08-16] MEDS: ALPHA D GALACTOSIDASE PO SCH (08:22)
[2017-08-16] MEDS: BUMETANIDE 2 MG TAB PO SCH (08:27)
== END 2017-08-16 10:10 | disposition home health service (06) | DRG 535 ==
LOC: ECF 12:04
PROVIDERS: ADMIT Internal Medicine; ATTEND Internal Medicine
PROC: 5A09357 Assistance with Respiratory Ventilation, Less than 24 Consecutive Hours, Continuous Positive Airway Pressure (ICD-10-PCS; principal; 2017-07-24)
DX: S32.592A Other specified fracture of left pubis, initial encounter for closed fracture (principal); N18.6 End stage renal disease; I50.32 Chronic diastolic (congestive) heart failure; E66.01 Morbid (severe) obesity due to excess calories; S83.92XA Sprain of unspecified site of left knee, initial encounter; E11.22 Type 2 diabetes mellitus with diabetic chronic kidney disease; G47.30 Sleep apnea, unspecified; K21.9 Gastro-esophageal reflux disease without esophagitis; I25.10 Atherosclerotic heart disease of native coronary artery without angina pectoris; J44.9 Chronic obstructive pulmonary disease, unspecified; E11.40 Type 2 diabetes mellitus with diabetic neuropathy, unspecified; F41.9 Anxiety disorder, unspecified; W18.39XD Other fall on same level, subsequent encounter; Z93.3 Colostomy status; Z68.39 Body mass index [BMI] 39.0-39.9, adult; Z79.4 Long term (current) use of insulin; Z91.041 Radiographic dye allergy status; Z99.81 Dependence on supplemental oxygen; Z99.2 Dependence on renal dialysis; Z23 Encounter for immunization
CPT/HCPCS: 36415; 36416; 82948; 84484; 90670; 93005; 97161; 97165; J1815; S0119

== ENCOUNTER → 2017-07-24 | Outpatient (CLI) | payer MEDICARE, MEDICAID ==
[2015-09-18 10:56] VITALS: BMI 42.7
== END ==
LOC: AMB 09:55
PROVIDERS: ATTEND Nurse Practitioner
DX: S32.9XXA Fracture of unspecified parts of lumbosacral spine and pelvis, initial encounter for closed fracture (principal); S83.92XA Sprain of unspecified site of left knee, initial encounter; N19 Unspecified kidney failure; E11.9 Type 2 diabetes mellitus without complications; Z99.2 Dependence on renal dialysis
CPT/HCPCS: A0425; A0428; A0888

== ENCOUNTER → 2018-01-02 | Outpatient (REF) | payer MEDICARE, MEDICAID ==
[2015-09-18 10:56] VITALS: BMI 42.7
[~2018-01-02] MED LIST changes: -ASPI-816 CHEW; +ASPI-870 CHEW; +IBUP-136 PO; -IBUP200C71 PO; +PREG25 PO
[2018-01-02 10:12] LABS: PLATELET COUNT, AUTOMATED 113 K/uL (150-450)
== END ==
LOC: ZZSENDIN 09:25
PROVIDERS: ATTEND Physician Assistant
DX: D64.89 Other specified anemias (principal)
CPT/HCPCS: 85025

== ENCOUNTER 2018-01-06 07:08 | Emergency (ER) | payer MEDICARE, MEDICAID ==
[2015-09-18 10:56] VITALS: Wt 105.2 kg
[~2018-01-06 07:08] MED LIST changes: -ACET-1966 PO; -HEPA100D89 IVPB; -PREG150C33 PO
[2018-01-06] MEDS ORDERED: ACET-1966 PO (07:28)
[2018-01-06] MEDS ORDERED: HYDR2TAB74 PO (07:28)
[2018-01-06] MEDS ORDERED: INSU100I30 SQ (07:28)
[2018-01-06] MEDS ORDERED: HEPA100D89 IVPB (07:28)
[2018-01-06] MEDS ORDERED: PREG150C33 PO (07:28)
[2018-01-06] MEDS ORDERED: PREG75CA60 PO (07:28)
[2018-01-06] MEDS ORDERED: SUCR500T PO (07:28)
[2018-01-06] MEDS ORDERED: ALPH1TAB PO (07:28)
[2018-01-06] MEDS ORDERED: ONDANSETRON 4 MG ODT TABDP SL ONE ×3 (07:35→08:55)
[2018-01-06] MEDS ORDERED: DIAZEPAM 5 MG TAB PO ONE (07:35)
--- NOTE | 2018-01-06 08:34 | RADIOLOGY IMAGING REPORT ---
FACILITY: [facility] PATIENT NAME: Lizbeth Madrid : 1950 MR: [id number] V: [id number] EXAM DATE: ORDERING PHYSICIAN: BILLY RIBERA TECHNOLOGIST: Location: [facility] Patient: Lizbeth Madrid : 1950 Visit/Account:[id number] Date of Sevice: 01/06/2018 CHEST SINGLE AP HISTORY: shortness of breath COMPARISON: 09/23/2015 FINDINGS: Cardiomediastinal contours: Heart is borderline enlarged but unchanged. Lungs and pleura: Mild increased bronchovascular markings without overt edema. No acute consolidation . Prior edema pattern has resolved. Bones/soft tissues: Normal Other findings: None significant IMPRESSION: 1. Mild increased bronchovascular markings without overt edema. Report Dictated By: Luis Fam MD at 01/06/2018 8:29 AM Report E-Signed By: Luis Fam MD at 01/06/2018 8:30 AM WSN:[id number]
[2018-01-06] MEDS ORDERED: HYDROmorphone HCL 2 MG TAB PO ONE (08:55)
[2018-01-06] MEDS ORDERED: ACETAMINOPHEN 325 MG TAB PO ONE (08:55)
[2018-01-06 09:00] VITALS: BP 161/57
--- NOTE | 2018-01-06 09:25 | ER Report ---
History and Physical Hx. of Stated Complaint: LEFT SIDED LOWER BACK SPASMS UNRELIEVED BY HOME DILAUDID TABLETS. LAST TOOK 2MG LAST AT 0330 Allergies: Coded Allergies: Gadolinium-Containing Contrast Medi (Verified Allergy, Severe, 07/12/17) Home Meds Reported Medications Sucroferric Oxyhydroxide (Velphoro) 500 Mg Tab.chew, 500 MG PO TIDAC 01/06/18 Pregabalin (LYRICA) 150 Mg Capsule, 150 MG PO QPM, CAPSULE 01/06/18 Pregabalin (LYRICA) 75 Mg Capsule, 75 MG PO QAM, CAPSULE 01/06/18 Insulin Glargine 100 Un/Ml Pen (LANTUS SOLOSTAR PEN) 100 Unit/1 Ml Insuln.pen, 20 UNIT SQ QHS, ML 01/06/18 Hydromorphone Hcl (DILAUDID) 2 Mg Tablet, 2 MG PO BID Y for PAIN 01/06/18 Heparin Sodium,Porcine/Pf (Heparin 1,000 Unit/10 (100/ml)) 1,000 Unit/10 Ml ( 100 Unit/Ml) Syringe, 3000 UNITS IVPB BEFORE DIALYSIS 01/06/18 Yjrzo-N-Eswxmsbmoreaa (Beano) 150 Unit Tablet, 300 MG PO TIDAC 01/06/18 Acetaminophen (TYLENOL) 325 Mg Tablet, 650 MG PO PRN Y for PAIN, TAB 01/06/18 Midodrine Hcl (MIDODRINE HCL) 5 Mg Tablet, 10 MG PO 3XW Take Sunday, Sunday, and Sunday before dialysis treatment 10/25/16 Krill Oil/[place]-3/Dha/Epa (OMEGA-3 KRILL OIL SOFTGEL) 1 Each Capsule, 1 EACH PO DAILY, CAPSULE 07/02/16 Insulin Aspart 100 Un/Ml Pen (NOVOLOG FLEXPEN) 100 Unit/1 Ml Insuln.pen, 15-20 UNIT SQ sliding scale 08/17/15 Oxygen (OXYGEN) Inha, 2 L INH DAILY, L 2L AT NIGHT WITH CPAP 04/22/15 Multivitamin (MULTI VITAMIN DAILY) 1 Each Tablet, 1 EACH PO DAILY 04/29/14 Discontinued Reported Medications Calcium Acetate (CALCIUM ACETATE) 667 Mg Tablet, 1334 MG PO TIDCF 04/18/17 Bumetanide (BUMETANIDE) 1 Mg Tablet, 2 MG PO non dialysis days 02/14/17 [place]-3 Fatty Acids/Fish Oil (OMEGA 3 FISH OIL SOFTGEL) 1 Each Capsule.dr, 1 EACH PO QDAY 07/02/16 Discontinued Scripts Pregabalin (LYRICA) 25 Mg Cap, 225 MG PO DAILY, #90 CAP One po q am and 2 po q HS. Prov:MARK PAYAN MD 08/15/17 Oxycodone Hcl/Acetaminophen (PERCOCET 5-325 MG TABLET) 1 Each Tablet, 1 EACH PO Q6-8H for PAIN, #25 TAB 0 Refills Prov:BILLY WOOTEN MD 07/12/17 Acetaminophen (ACETAMINOPHEN) 500 Mg Tablet, 500 MG PO Q6H Y for PAIN, #50 TAB Prov:MARK PAYAN MD 09/08/15 Insulin Glargine 100 Un/Ml Pen (LANTUS SOLOSTAR PEN) 100 Unit/1 Ml Insuln.pen, 22 UNIT SUBQ QHS, #1 BOX Prov:MARK PAYAN MD 09/08/15 [[id number]] 1 EACH TAB No Conflict Check, 1 EACH PO TIDAC Y for PRN , #100 TAB Prov:MARK PAYAN MD 09/08/15 Hx Smoking: No Smoking Status: Never Smoker Exposure to Second Hand Smoke?: No Hx Substance Use Disorder: No Hx Alcohol Use: No Constitutional Vital Sign - Last 24 Hours 01/06/18 01/06/18 01/06/18 01/06/18 07:11 07:30 07:32 08:03 Temp 97.3 Pulse 78 79 76 78 Resp 18 18 16 16 B/P (MAP) 197/82 169/67 (101) 130/90 (103) Pulse Ox 96 98 96 98 O2 Delivery Nasal Cannula 01/06/18 01/06/18 08:30 09:00 Pulse 76 78 Resp 18 18 B/P (MAP) 171/24 (73) 161/57 (91) Pulse Ox 98 97 Depart Departure Latest Vital Signs Vital Signs Date Time Temp Pulse Resp B/P (MAP) Pulse Ox O2 Delivery O2 Flow Rate FiO2 01/06/18 09:00 78 18 161/57 (91) 97 01/06/18 07:11 97.3 Nasal Cannula Impression: Primary Impression: Muscle spasm of back Condition: Improved Disposition: HOME OR SELF-CARE Referrals: AUGUSTINE LOVE MD (PCP) Departure Forms: Medications Reconciliation, Patient Portal Information, ER Transition Record Patient Instructions: Back Pain (ED) Additional Instructions: As we discussed, please return immediately for fevers, vomiting, new weakness, worsening in pain, or any concerns. BILLY RIBERA MD Jan 06, 2018 09:25
--- NOTE | 2018-01-06 09:37 | RADIOLOGY IMAGING REPORT ---
[place] [facility] [place] NAME: Lizbeth Madrid : 1950 MR: [id number] V: [id number] EXAM DATE: ORDERING PHYSICIAN: BILLY RIBERA TECHNOLOGIST: Location: [facility] [place] Patient: Lizbeth Madrid : 1950 Visit/Account:[id number] Date of Sevice: 01/06/2018 ABDOMEN/PELVIS W/O CONTRAST HISTORY: Abdominal pain TECHNIQUE: Axial images were obtained through the abdomen and pelvis without intravenous contrast . One of the following dose optimization techniques was utilized in the performance of this exam: autom ated exposure control; adjustment of the mA and/or kv according to patient size; or use of iterative reconstruction technique. Specific details can be referenced in the facility's radiology CT exam oper ational policy. CONTRAST: None COMPARISON: CT abdomen/pelvis 01/10/2012. FINDINGS: Visualized lung bases: Mild basilar atelectasis. Hepatobiliary: Gallstones. No biliary ductal dilatation. Spleen: Granulomas. Adrenals: Negative. Pancreas: Negative. Kidneys/ureters/bladder: No radiopaque ureteral calculus. No hydronephrosis. Extensive renal artery calcifications especially centrally within the kidneys. Minimal bilateral perinephric stranding. Bowel/peritoneum/mesentery: Segmental thickening of the distal esophagus. Tiny hiatal hernia. Vessels: Severe arterial calcifications. Abdominal aorta normal caliber measuring up to 1.6 cm. Lymph nodes: Negative. Pelvic genitourinary: Negative. Bones/body wall: Enlarging left lower quadrant parastomal hernia with a 5.9 cm neck containing multi ple nonobstructed small bowel and colonic loops. Other findings: None significant IMPRESSION: 1. Negative for ureteral calculus or hydronephrosis. 2. Negative for abdominal aortic aneurysm. 3. Enlarging left lower quadrant peristomal hernia containing multiple nonobstructed bowel loops. 4. Gallstones. Report Dictated By: Luis Fam MD at 01/06/2018 9:24 AM Report E-Signed By: Luis Fam MD at 01/06/2018 9:33 AM WSN:[id number]
--- NOTE | 2018-01-06 10:07 | ER Report ---
History and Physical Time Seen By MD: 07:35 Hx. of Stated Complaint: LEFT SIDED LOWER BACK SPASMS UNRELIEVED BY HOME DILAUDID TABLETS. LAST TOOK 2MG LAST AT 0330 HPI/ROS CHIEF COMPLAINT: back spasms HISTORY OF PRESENT ILLNESS: Pt states at 2130 last night while awake and lying in bed she developed l mid back spasms; these occur every couple minutes or so and last for seconds at a time. Have been persistent throughout the night, not relieved by home musc relaxant or hydromorphone. Has had back pain in past for which she takes hydromorphone occasionally, but has not had pain in this area and spasms are somewhat different from nl. Pt states she feels them 'right in the back muscles' REVIEW OF SYSTEMS: Constitutional: No fever, no chills. Eyes: No discharge. ENT: No sore throat. Cardiovascular: No chest pain, no palpitations. Respiratory: No cough, no shortness of breath. Gastrointestinal: No abdominal pain, no vomiting. The pain does give her nausea Genitourinary: No hematuria; she produces sm amt of urine Musculoskeletal: as above Skin: No rashes. Neurological: No headache. Pt is on home hemodialysis Allergies: Coded Allergies: Gadolinium-Containing Contrast Medi (Verified Allergy, Severe, 07/12/17) Home Meds Reported Medications Sucroferric Oxyhydroxide (Velphoro) 500 Mg Tab.chew, 500 MG PO TIDAC 01/06/18 Pregabalin (LYRICA) 150 Mg Capsule, 150 MG PO QPM, CAPSULE 01/06/18 Pregabalin (LYRICA) 75 Mg Capsule, 75 MG PO QAM, CAPSULE 01/06/18 Insulin Glargine 100 Un/Ml Pen (LANTUS SOLOSTAR PEN) 100 Unit/1 Ml Insuln.pen, 20 UNIT SQ QHS, ML 01/06/18 Hydromorphone Hcl (DILAUDID) 2 Mg Tablet, 2 MG PO BID Y for PAIN 01/06/18 Heparin Sodium,Porcine/Pf (Heparin 1,000 Unit/10 (100/ml)) 1,000 Unit/10 Ml ( 100 Unit/Ml) Syringe, 3000 UNITS IVPB BEFORE DIALYSIS 01/06/18 Khuiz-J-Nrgoxnnhoymzk (Beano) 150 Unit Tablet, 300 MG PO TIDAC 01/06/18 Acetaminophen (TYLENOL) 325 Mg Tablet, 650 MG PO PRN Y for PAIN, TAB 01/06/18 Midodrine Hcl (MIDODRINE HCL) 5 Mg Tablet, 10 MG PO 3XW Take Sunday, Sunday, and Sunday before dialysis treatment 10/25/16 Krill Oil/[place]-3/Dha/Epa (OMEGA-3 KRILL OIL SOFTGEL) 1 Each Capsule, 1 EACH PO DAILY, CAPSULE 07/02/16 Insulin Aspart 100 Un/Ml Pen (NOVOLOG FLEXPEN) 100 Unit/1 Ml Insuln.pen, 15-20 UNIT SQ sliding scale 08/17/15 Oxygen (OXYGEN) Inha, 2 L INH DAILY, L 2L AT NIGHT WITH CPAP 04/22/15 Multivitamin (MULTI VITAMIN DAILY) 1 Each Tablet, 1 EACH PO DAILY 04/29/14 Discontinued Reported Medications Calcium Acetate (CALCIUM ACETATE) 667 Mg Tablet, 1334 MG PO TIDCF 04/18/17 Bumetanide (BUMETANIDE) 1 Mg Tablet, 2 MG PO non dialysis days 02/14/17 [place]-3 Fatty Acids/Fish Oil (OMEGA 3 FISH OIL SOFTGEL) 1 Each Capsule.dr, 1 EACH PO QDAY 07/02/16 Discontinued Scripts Pregabalin (LYRICA) 25 Mg Cap, 225 MG PO DAILY, #90 CAP One po q am and 2 po q HS. Prov:MARK PAYAN MD 08/15/17 Oxycodone Hcl/Acetaminophen (PERCOCET 5-325 MG TABLET) 1 Each Tablet, 1 EACH PO Q6-8H for PAIN, #25 TAB 0 Refills Prov:BILLY WOOTEN MD 07/12/17 Acetaminophen (ACETAMINOPHEN) 500 Mg Tablet, 500 MG PO Q6H Y for PAIN, #50 TAB Prov:MARK PAYAN MD 09/08/15 Insulin Glargine 100 Un/Ml Pen (LANTUS SOLOSTAR PEN) 100 Unit/1 Ml Insuln.pen, 22 UNIT SUBQ QHS, #1 BOX Prov:MARK PAYAN MD 09/08/15 [Avhhh-L-Buklfcldijcfo] 1 EACH TAB No Conflict Check, 1 EACH PO TIDAC Y for PRN , #100 TAB Prov:MARK PAYAN MD 09/08/15 Hx Smoking: No Smoking Status: Never Smoker Exposure to Second Hand Smoke?: No Hx Substance Use Disorder: No Hx Alcohol Use: No Constitutional Vital Sign - Last 24 Hours 01/06/18 01/06/18 01/06/18 01/06/18 07:11 07:30 07:32 08:03 Temp 97.3 Pulse 78 79 76 78 Resp 18 18 16 16 B/P (MAP) 197/82 169/67 (101) 130/90 (103) Pulse Ox 96 98 96 98 O2 Delivery Nasal Cannula 01/06/18 01/06/18 08:30 09:00 Pulse 76 78 Resp 18 18 B/P (MAP) 171/24 (73) 161/57 (91) Pulse Ox 98 97 Physical Exam General Appearance: The patient is alert, has no immediate need for airway protection and no signs of toxicity. Pt alternates between appearing comfortable and spasms that appear to affect l side of back Eyes: Pupils equal and round no pallor or injection. ENT, Mouth: Mucous membranes are moist. Respiratory: There are no retractions, lungs are clear to auscultation. Cardiovascular: Regular rate and rhythm. Gastrointestinal: Abdomen is soft and non tender, bowel sounds normal Colostomy bag appears nl, ostomy site nl, with soft, reducible hernia Neurological: alert, oriented, moves all extremities Skin: Warm and dry, no rashes. Musculoskeletal: Neck is supple non tender. Extremities are nontender, nonswollen and are at baseline range of motion (pt with minimal flexion of hips; can flex knees and 55/ ms at ankles. distal pulses 2+ [DIFFERENTIAL DIAGNOSIS: After history and physical exam differential diagnosis was considered for back pain including but not limited to AAA, cauda equina, fracture, kidney stone, infection, muscular pain, herniated disc, spine fracture , intra-abdominal causes and urinary tract infection. Medical Decision Making EKG/Imaging Imaging CXR at baseline, no new widened mediastinum. CT without acute findings, no incarcerated hernia ED Course/Re-evaluation ED Course Pt with multiple spasms of l side of back. per pt these symtpoms are similar to prior though in different part of back. Therefore, I obtained cxr/ct to r/o e/o widened mediastinum, aaa, renal stones, or other emergent etiology. CT/cxr unremarkable; specifically mediastinum similar to prior that I reviewed, CT unremark; discussed hernia/ostomy with radiologist; no e/o incarcerated hernia. Ultimately, very unlikely to be emergent illness and most c/w msk pain. Given pt 's home meds and inaibilty to administer nsaids due to renal failure, pain relief options are limited; I adminsitered valium which, though stated this would not work, pt appeared to be resting comfortably on muliple evaluations as I walked past/into room. Ultimately, pt does awake and appears to have intermittent spasms, completely reproducible on exam. Of note, becomes upset that I do not offer medications that are 'different than what he can get at home or over the counter' however, I discussed at length that as pt does not appear to have a new emergent condition, we will not be able to completely manage this ongoing/intermittent pain with medication. I discussed multiple other modalities. Pt improved on d/c and understands SRPs Decision to Disposition Date: Jan 06, 2018 Decision to Disposition Time: 10:05 Depart Departure Latest Vital Signs Vital Signs Date Time Temp Pulse Resp B/P (MAP) Pulse Ox O2 Delivery O2 Flow Rate FiO2 01/06/18 09:00 78 18 161/57 (91) 97 01/06/18 07:11 97.3 Nasal Cannula Impression: Primary Impression: Muscle spasm of back Condition: Improved Disposition: HOME OR SELF-CARE Referrals: AUGUSTINE LOVE MD (PCP) BILLY RIBERA MD Jan 06, 2018 10:07
== END 2018-01-06 09:30 | disposition home or self-care (01) ==
LOC: ER 07:17
DX: M62.830 Muscle spasm of back (principal)
CPT/HCPCS: 71045; 74176; 99284; A9270; Q0162; S0119

== ENCOUNTER → 2018-01-06 | Outpatient (CLI) | payer MEDICARE, MEDICAID ==
[2015-09-18 10:56] VITALS: BMI 42.7
[~2018-01-06] MED LIST changes: +ACET-1966 PO; +HEPA100D89 IVPB; +PREG150C33 PO
== END ==
LOC: AMB 06:49
PROVIDERS: ATTEND Nurse Practitioner
DX: M54.9 Dorsalgia, unspecified (principal); R53.1 Weakness
CPT/HCPCS: A0425; A0429

== ENCOUNTER → 2018-01-06 | Outpatient (CLI) | payer MEDICARE, MEDICAID ==
[2015-09-18 10:56] VITALS: BMI 42.7
== END ==
LOC: AMB 10:00
PROVIDERS: ATTEND Nurse Practitioner
DX: R53.1 Weakness (principal)
CPT/HCPCS: A0425; A0428

== ENCOUNTER → 2018-01-09 | Outpatient (CLI) | payer MEDICARE, MEDICAID ==
[2015-09-18 10:56] VITALS: BMI 42.7
[~2018-01-09] MED LIST changes: +ACET-1966 PO; +HEPA100D89 IVPB; +PREG150C33 PO
--- NOTE | 2018-01-09 13:13 | RADIOLOGY IMAGING REPORT ---
FACILITY: [facility] PATIENT NAME: Lizbeth Madrid : 1950 MR: [id number] V: [id number] EXAM DATE: ORDERING PHYSICIAN: AUGUSTINE LOVE TECHNOLOGIST: [place] [facility] [place] Lizbeth Madrid : 1950 Visit/Account:[id number] Date of Sevice: 01/09/2018 ANKLE BRACHIAL INDICES Exam: Ultrasound ankle brachial index evaluation. Indication: Patient with renal failure and suspected peripheral vascular disease. Patient has left arm fistula. Procedure: Blood pressures were obtained of the brachial arteries, posterior tibial arteries and dors tamra pedis arteries bilaterally. ABIs were then calculated. Findings: Right side: Right NHI: 1.55 with the talus pedis artery. The NHI with the posterior tibialis artery is 0.99 Right brachial pressure: 159 mmHg Ankle PT: 158 mmHg Ankle DP: 246 mmHg. The TBI in the right side is 0.53. The tracing shows mildly diminished upstroke amplitude. Left side: Left NHI: 1.52 with the dorsalis pedis artery. The NHI with the posterior tibialis artery is 1.08. Right brachial pressure: 159 mmHg Ankle PT: 172 mmHg Ankle DP: 242 mmHg The TBI in the left side is 0.55. The tracing shows mildly diminished amplitude of the upstroke. IMPRESSION: 1. The ABIs using the posterior tibialis arteries are elevated bilaterally. This would suggest that the vessels are noncompressible. This can be seen with medial calcinosis of diabetes. Therefore the ABIs may not be accurate. 2. The TBIs show mildly diminished amplitude bilaterally, and the indices are mildly low. 3. A resting and stress NHI would be more helpful in determining if this patient has peripheral vasc ular disease causing claudication or other symptoms of arterial insufficiency. Report Dictated By: Bryson Merida MD at 01/09/2018 1:01 PM Report E-Signed By: Bryson Merida MD at 01/09/2018 1:08 PM [id number]
== END ==
LOC: US 02:01
PROVIDERS: ATTEND Family Medicine
DX: G60.3 Idiopathic progressive neuropathy (principal)
CPT/HCPCS: 93922

== ENCOUNTER 2018-01-24 11:26 | Outpatient (RCR) | payer MEDICARE, MEDICAID ==
[2015-09-18 10:56] VITALS: BMI 42.7
[~2018-01-24 11:26] MED LIST changes: +AMLO-111 PO; -AMLO-96 PO; -CHOL200022 PO; +CHOL200085 PO
[2018-01-24 12:00] VITALS: BP 117/66
[2018-01-24] MEDS ORDERED: DEXTROSE 5%(*) 100 ML BAG 100 ML IVPB PRN (13:45)
[2018-01-24] MEDS ORDERED: NS(*) 0.9% 500 ML BAG 500 ML IV PRN (13:45)
[2018-01-24] MEDS ORDERED: LIDOCAINE/SOD BICARB 8.4% SYR ID PRN (13:45)
[2018-01-24] MEDS ORDERED: NS(*) 0.9% 100 ML BAG 100 ML IVPB PRN (13:45)
[2018-01-24] MEDS ORDERED: HEPARIN FLSH (PORT) 500 UN/5ML IVP PRN (13:45)
[2018-01-24] MEDS ORDERED: ALTEPLASE RECOMB 2 MG VIAL IVP PRN (13:45)
[2018-01-24] MEDS ORDERED: WATER FOR INJ,STERILE 20 ML IVP PRN (13:45)
[2018-01-24 14:45] VITALS: BP 121/56
[2018-01-24 14:59] VITALS: BP 113/62
[2018-01-24 16:50] VITALS: BP 153/68
== END 2018-03-06 09:34 | disposition home or self-care (01) ==
LOC: SPU 11:26
PROVIDERS: ATTEND Family Medicine
DX: D64.9 Anemia, unspecified (principal)
CPT/HCPCS: 36415; 36430; 86850; 86900; 86901; 86920; J7040; P9016

== ENCOUNTER → 2018-02-14 | Outpatient (CLI) | payer MEDICARE, MEDICAID ==
[2015-09-18 10:56] VITALS: BMI 42.7
--- NOTE | 2018-02-16 13:47 | RT HOLTER TEST ---
FACILITY: [facility] - [place] PATIENT NAME: RENU TAMAYO : [id number] MR: [id number] V: [id number] EXAM DATE: ORDERING PHYSICIAN: CHRIS ADAMS TECHNOLOGIST: Hook-up date: 2018-02-14 09:51:00 Duration: 47:59:00 Test Indications: HEART FAILURE Medications: N/A [id number] QRS complexes 30 Ventricular ectopics which represent <1 % of total QRS comp. * Supraventricular ectopics which represent % of total QRS comp. * Paced QRS complexes which represent % of total QRS comp. VENTRICULAR ECTOPY 30 Isolated 0 Bigeminal Cycles 0 Couplets 0 Runs 0 Beats in Runs * Beats LONGEST at * BPM at :: -- * Beats FASTEST at * BPM at :: -- SUPRAVENTRICULAR ECTOPY * Isolated * Couplets * Runs * Beats in Runs * Beats LONGEST at * BPM at :: -- * Beats FASTEST at * BPM at :: -- HEART RATES 61 MIN at 04:32:34 2018-02-15 73 AVG 86 MAX at 21:46:22 2018-02-15 LONGEST RR 1.696 secs at 04:32:34 2018-02-15 S-T LEVELS Channel 1 -12.800 mm MIN at 09:51:00 2018-02-1412.800 mm MAX at 09:51:00 2018-02-14 Channel 2 -12.800 mm MIN at 09:51:00 2018-02-1412.800 mm MAX at 09:51:00 2018-02-14 Channel 3 -12.800 mm MIN at 09:51:00 2018-02-1412.800 mm MAX at 09:51:00 2018-02-14 Sinus rhythym with occasional isolated PVC. No other arrhythmia noted. Confirmed by Franco Morales ([id number]) on 02/16/2018 1:47:34 PM Referred By: Overread By: Franco Ramirez
== END ==
LOC: RESP 02:14
PROVIDERS: ATTEND Family Medicine
DX: I50.9 Heart failure, unspecified (principal)
CPT/HCPCS: 93225; 93226

== ENCOUNTER 2018-02-19 22:47 | Emergency (ER) | payer MEDICARE, MEDICAID ==
[2015-09-18 10:56] VITALS: Wt 105.2 kg
--- NOTE | 2018-02-19 23:09 | ER Report ---
History and Physical Time Seen By MD: 22:56 Hx. of Stated Complaint: chest pressure after home dialysis. per , pt is 2l heavy on fluids HPI/ROS CHIEF COMPLAINT: chest pressure, difficulty breathing HISTORY OF PRESENT ILLNESS: This is a 67 year old female. She was at home and feeling short of breath with some chest pressure. She was doing her dialysis at the time and noted her blood pressure was running a little low. She and her do the dialysis at home so they added a little fluid to bump the blood pressure. She was not feeling better, so called EMS. They put her on oxygen and she felt better. Found that the oxygen tubing was not connected at home and felt like this may have been the problem, but decided to come to the hospital to make sure. She is feeling better on arrival, with no further chest pressure, but was worried about heart problem so came in to get checked out. No longer short of breath. No recent illnesses. No cough. No fevers or chills. Allergies: Coded Allergies: Gadolinium-Containing Contrast Medi (Verified Allergy, Severe, 02/19/18) Home Meds Reported Medications Sucroferric Oxyhydroxide (Velphoro) 500 Mg Tab.chew, 500 MG PO TIDAC 01/06/18 Pregabalin (LYRICA) 150 Mg Capsule, 150 MG PO QPM, CAPSULE 01/06/18 Pregabalin (LYRICA) 75 Mg Capsule, 75 MG PO QAM, CAPSULE 01/06/18 Insulin Glargine 100 Un/Ml Pen (LANTUS SOLOSTAR PEN) 100 Unit/1 Ml Insuln.pen, 20 UNIT SQ QHS, ML 01/06/18 Hydromorphone Hcl (DILAUDID) 2 Mg Tablet, 2 MG PO BID PRN for PAIN 01/06/18 Heparin Sodium,Porcine/Pf (Heparin 1,000 Unit/10 (100/ml)) 1,000 Unit/10 Ml (100 Unit/Ml) Syringe, 3000 UNITS IVPB BEFORE DIALYSIS 01/06/18 Zqrqf-M-Lazzrijwcobet (Beano) 150 Unit Tablet, 300 MG PO TIDAC 01/06/18 Acetaminophen (TYLENOL) 325 Mg Tablet, 650 MG PO PRN PRN for PAIN, TAB 01/06/18 Midodrine Hcl (MIDODRINE HCL) 5 Mg Tablet, 10 MG PO 3XW Take Sunday, Sunday, and Sunday before dialysis treatment 10/25/16 Krill Oil/[place]-3/Dha/Epa (OMEGA-3 KRILL OIL SOFTGEL) 1 Each Capsule, 1 EACH PO DAILY, CAPSULE 07/02/16 Insulin Aspart 100 Un/Ml Pen (NOVOLOG FLEXPEN) 100 Unit/1 Ml Insuln.pen, 15-20 UNIT SQ sliding scale 08/17/15 Oxygen (OXYGEN) Inha, 2 L INH DAILY, L 2L AT NIGHT WITH CPAP 04/22/15 Multivitamin (MULTI VITAMIN DAILY) 1 Each Tablet, 1 EACH PO DAILY 04/29/14 Reviewed Nurses Notes: Yes Hx Smoking: No Smoking Status: Never Smoker Exposure to Second Hand Smoke?: No Hx Substance Use Disorder: No Hx Alcohol Use: No Constitutional Vital Sign - Last 24 Hours 02/19/18 02/19/18 02/19/18 02/19/18 22:49 22:53 23:00 23:02 Temp 97.5 Pulse 89 ??? Resp 14 25 B/P (MAP) 174/68 174/68 (103) ???/??? (1665) Pulse Ox 95 94 O2 Delivery Nasal Cannula 02/19/18 02/19/18 02/19/18 02/19/18 23:07 23:15 23:22 23:30 Pulse 89 86 Resp 27 21 B/P (MAP) 154/58 (90) O2 Flow Rate 2.0 02/19/18 02/19/18 02/20/18 02/20/18 23:37 23:52 00:00 00:07 Pulse 89 85 84 Resp 29 37 17 B/P (MAP) 163/97 (119) Pulse Ox 93 96 97 02/20/18 02/20/18 02/20/18 02/20/18 00:12 00:27 00:30 00:30 Pulse 85 85 83 Resp 18 14 16 Pulse Ox 97 97 97 O2 Delivery Nasal Cannula O2 Flow Rate 2.0 02/20/18 02/20/18 02/20/18 00:30 00:42 00:57 Pulse 83 87 Resp 23 16 B/P (MAP) 181/86 (117) Pulse Ox 100 96 Physical Exam General Appearance: Alert. No acute distress. Non-toxic in appearance. Eyes: Pupils are equal, round. No pallor, injection or icterus. ENT: Mucous membranes are moist. Neck: Supple and non tender. No lymphadenopathy. Respiratory: Lungs are clear to auscultation. Oxygen saturations mid 90s on 2 liters by nasal canula. Cardiovascular: Regular rate and rhythm. No murmurs, gallops or rubs. Normal capillary refill. Gastrointestinal: Abdomen is soft and non tender. Nondistended. Normal active bowel sounds. Neurological: Alert and oriented x3. Skin: Warm and dry. No rashes. Musculoskeletal: No tenderness in palpation of the back and spine. DIFFERENTIAL DIAGNOSIS: After history and physical exam, differential diagnosis was considered for shortness of breath and chest pressure including but not limited to pulmonary infectious process, pulmonary embolus, acute coronary syndrome and congestive heart failure. However, given the situation with not being on oxygen, and feeling better now, this is the most likely cause. Medical Decision Making Data Points Result Diagram: 02/19/18 2327 02/19/18 2447 Laboratory Hematology Test 02/19/18 23:27 Red Blood Count 3.06 M/uL (4.17-5.56) Mean Corpuscular Volume 94.0 fL (80.0-96.0) Mean Corpuscular Hemoglobin 33.4 pg (26.0-33.0) Mean Corpuscular Hemoglobin Concent 35.6 g/dL (32.0-36.0) Red Cell Distribution Width 14.3 % (11.5-14.5) Mean Platelet Volume 10.2 fL (7.2-11.1) Neutrophils (%) (Auto) 77.4 % (39.4-72.5) Lymphocytes (%) (Auto) 11.4 % (17.6-49.6) Monocytes (%) (Auto) 6.3 % (4.1-12.4) Eosinophils (%) (Auto) 4.0 % (0.4-6.7) Basophils (%) (Auto) 0.9 % (0.3-1.4) Nucleated RBC Relative Count (auto) 0.3 /100WBC Neutrophils # (Auto) 6.2 K/uL (2.0-7.4) Lymphocytes # (Auto) 0.9 K/uL (1.3-3.6) Monocytes # (Auto) 0.5 K/uL (0.3-1.0) Eosinophils # (Auto) 0.3 K/uL (0.0-0.5) Basophils # (Auto) 0.1 K/uL (0.0-0.1) Nucleated RBC Absolute Count (auto) 0.02 K/uL Prothrombin Time 12.0 seconds (12.0-14.4) Prothromb Time International Ratio 0.89 Activated Partial Thromboplast Time 38 seconds (23-35) Sodium Level 134 mmol/L (137-145) Potassium Level 4.2 mmol/L (3.5-5.0) Chloride Level 90 mmol/L (98-107) Carbon Dioxide Level 31 mmol/L (22-31) Blood Urea Nitrogen 43 mg/dl (7-18) Creatinine 3.70 mg/dl (0.52-1.04) Glomerular Filtration Rate Calc 12.2 Random Glucose 191 mg/dl (75-110) Calcium Level 9.5 mg/dl (8.4-10.2) Total Bilirubin 0.3 mg/dl (0.2-1.3) Aspartate Amino Transf (AST/SGOT) 23 U/L (0-35) Alanine Aminotransferase (ALT/SGPT) 21 U/L (0-56) Alkaline Phosphatase 124 U/L (0-126) Troponin I 0.027 ng/ml Total Protein 7.5 g/dl (6.3-8.2) Albumin 4.1 g/dl (3.5-5.0) Chemistry Test 02/19/18 23:27 White Blood Count 8.0 k/uL (4.5-11.0) Red Blood Count 3.06 M/uL (4.17-5.56) Hemoglobin 10.2 g/dL (12.0-16.0) Hematocrit 28.7 % (34.0-47.0) Mean Corpuscular Volume 94.0 fL (80.0-96.0) Mean Corpuscular Hemoglobin 33.4 pg (26.0-33.0) Mean Corpuscular Hemoglobin Concent 35.6 g/dL (32.0-36.0) Red Cell Distribution Width 14.3 % (11.5-14.5) Platelet Count 150 K/uL (150-450) Mean Platelet Volume 10.2 fL (7.2-11.1) Neutrophils (%) (Auto) 77.4 % (39.4-72.5) Lymphocytes (%) (Auto) 11.4 % (17.6-49.6) Monocytes (%) (Auto) 6.3 % (4.1-12.4) Eosinophils (%) (Auto) 4.0 % (0.4-6.7) Basophils (%) (Auto) 0.9 % (0.3-1.4) Nucleated RBC Relative Count (auto) 0.3 /100WBC Neutrophils # (Auto) 6.2 K/uL (2.0-7.4) Lymphocytes # (Auto) 0.9 K/uL (1.3-3.6) Monocytes # (Auto) 0.5 K/uL (0.3-1.0) Eosinophils # (Auto) 0.3 K/uL (0.0-0.5) Basophils # (Auto) 0.1 K/uL (0.0-0.1) Nucleated RBC Absolute Count (auto) 0.02 K/uL Prothrombin Time 12.0 seconds (12.0-14.4) Prothromb Time International Ratio 0.89 Activated Partial Thromboplast Time 38 seconds (23-35) Glomerular Filtration Rate Calc 12.2 Calcium Level 9.5 mg/dl (8.4-10.2) Total Bilirubin 0.3 mg/dl (0.2-1.3) Aspartate Amino Transf (AST/SGOT) 23 U/L (0-35) Alanine Aminotransferase (ALT/SGPT) 21 U/L (0-56) Alkaline Phosphatase 124 U/L (0-126) Troponin I 0.027 ng/ml Total Protein 7.5 g/dl (6.3-8.2) Albumin 4.1 g/dl (3.5-5.0) Coagulation Test 02/19/18 23:27 Prothrombin Time 12.0 seconds Prothromb Time International Ratio 0.89 Activated Partial Thromboplast Time 38 seconds EKG/Imaging EKG Interpretation 12 lead EKG: Rhythm: normal sinus rhythm, rate 87 [place]: normal QRS: normal ST segments: normal Imaging PORTABLE CHEST: Indication: Dyspnea and chest pressure. Technique: A single frontal film was obtained. Comparison: 01/06/2018 Skeletal and soft tissue structures: Intact and unchanged. Heart and mediastinum: Within normal limits. Lung garcia: There are diffuse increased interstitial markings, which is a chronic finding. Mild vascular congestion is not excluded. No focal consolidation or volume loss is identified. Pleural spaces: No evidence of effusion or pneumothorax. Impression: Chronic increased interstitial markings. Mild vascular congestion is not excluded. Report Dictated By: Tee Aldridge MD at 02/20/2018 12:44 AM ED Course/Re-evaluation Clinical Indication for ER IV: IV Access ED Course The patient felt better as noted, however, started to have some repeat chest pressure. She was anxious and thought her heart rate, which was in the 80s, was her oxygen saturations and could not get it to go up even with deep breathing. She was having some anxiety about this, but was redirected by the nurse that this was her heart rate. She did feel better. Chest x-ray shows a little haziness that could represent slight fluid overload given that they were about 0.3 liters positive after dialysis and fluids today. EKG shows no signs of ischemia. Labs with abnormalities consistent with chronic kidney disease and dialysis. Reviewed all of this with the patient and her and they feel comfortable returning home at this time. They will work on removing further fluid with dialysis tomorrow. Decision to Disposition Date: Feb 20, 2018 Decision to Disposition Time: 00:57 Depart Departure Latest Vital Signs Vital Signs Date Time Temp Pulse Resp B/P (MAP) Pulse Ox O2 Delivery O2 Flow Rate FiO2 02/20/18 00:57 87 16 96 02/20/18 00:30 181/86 (117) 02/20/18 00:30 Nasal Cannula 2.0 02/19/18 22:49 97.5 Impression: Primary Impression: Chest pain Condition: Improved Disposition: HOME OR SELF-CARE Referrals: AUGUSTINE LOVE MD (PCP) Patient Instructions: Chest Pain (ED) Additional Instructions: We think that the chest pain tonight is a combination of being off of your oxygen as we discussed, and also some fluid overload after dialysis. With the dialysis this week, you can work with your doctor to discuss removing some more fluid to see if this helps. No other changes at this time. Problem Qualifiers Primary Impression: Chest pain Chest pain type: unspecified Qualified Codes: R07.9 - Chest pain, unspecified JANE HERNANDEZ MD Feb 19, 2018 23:08
--- NOTE | 2018-02-19 23:28 | EKG ---
FACILITY: [facility] PATIENT NAME: RENU TAMAYO : [id number] MR: [id number] V: [id number] EXAM DATE: ORDERING PHYSICIAN: JANE HERNANDEZ TECHNOLOGIST: SWAPNA Dawson Reason : CHEST PRESSURE Blood Pressure : / mmHG Vent. Rate : 087 BPM Atrial Rate : 087 BPM P-R Int : 178 ms QRS Dur : 100 ms QT Int : 396 ms P-R-T Axes : 055 037 046 degrees QTc Int : 476 ms Sinsu rhythm Poor R wave progression anteriorly Nonspecific interventricular conduction delay Abnormal ECG Confirmed by KELLY PAYAN ([id number]) on 02/20/2018 8:57:27 AM Referred By: Confirmed By:KELLY PAYAN
[2018-02-19 23:35] LABS: PLATELET COUNT, AUTOMATED 150 K/uL (150-450)
[2018-02-19 23:44] LABS: INR 0.89
[2018-02-20 00:30] VITALS: BP 181/86
[2018-02-20] MEDS ORDERED: ALBUTEROL 2.5 MG/3 ML NEB NEB ONE (00:35)
--- NOTE | 2018-02-20 00:52 | RADIOLOGY IMAGING REPORT ---
FACILITY: [facility] PATIENT NAME: Lizbeth Madrid : 1950 MR: [id number] V: [id number] EXAM DATE: ORDERING PHYSICIAN: JANE HERNANDEZ [place]CHNOLOGIST: [place] [facility] [place] : 1950 Visit/Account:[id number] Date of Sevice: 02/19/2018 PORTABLE CHEST: Indication: Dyspnea and chest pressure. Technique: A single frontal film was obtained. Comparison: 01/06/2018 Skeletal and soft tissue structures: Intact and unchanged. Heart and mediastinum: Within normal limits. Lung garcia: There are diffuse increased interstitial markings, which is a chronic finding. Mild vasc ular congestion is not excluded. No focal consolidation or volume loss is identified. Pleural spaces: No evidence of effusion or pneumothorax. Impression: Chronic increased interstitial markings. Mild vascular congestion is not excluded. Report Dictated By: Tee Aldridge MD at 02/20/2018 12:44 AM Report E-Signed By: Tee Aldridge MD at 02/20/2018 12:46 AM [id number]
== END 2018-02-20 01:17 | disposition home or self-care (01) ==
LOC: ER 22:49
DX: R07.89 Other chest pain (principal); R94.31 Abnormal electrocardiogram [ECG] [EKG]
CPT/HCPCS: 36415; 71045; 84484; 85025; 85610; 85730; 93005; 94640; 99284; J7613; 82040; 82247; 82310; 82374; 82435; 82565; 82947; 84075; 84132; 84155; 84295; 84450; 84460; 84520

== ENCOUNTER → 2018-02-19 | Outpatient (CLI) | payer MEDICARE, MEDICAID ==
[2015-09-18 10:56] VITALS: BMI 42.7
== END ==
LOC: AMB 21:54
PROVIDERS: ATTEND Nurse Practitioner
DX: I95.9 Hypotension, unspecified (principal); R09.02 Hypoxemia; N17.9 Acute kidney failure, unspecified; Z99.2 Dependence on renal dialysis
CPT/HCPCS: A0425; A0427

== ENCOUNTER → 2018-02-20 | Outpatient (CLI) | payer MEDICARE, MEDICAID ==
[2015-09-18 10:56] VITALS: BMI 42.7
== END ==
LOC: AMB 01:08
PROVIDERS: ATTEND Nurse Practitioner
DX: R53.1 Weakness (principal); R07.89 Other chest pain
CPT/HCPCS: A0425; A0428

== ENCOUNTER 2018-05-07 06:30 | Emergency (ER) | payer MEDICARE, MEDICAID ==
[2015-09-18 10:56] VITALS: Wt 105.2 kg
--- NOTE | 2018-05-07 07:21 | ER Report ---
History and Physical Time Seen By MD: 07:07 Hx. of Stated Complaint: upper backpain that started yesterday. worsening through the night. took hydromophone at 5am. not helping HPI/ROS CHIEF COMPLAINT: Right sided lower back pain(please note this differs from what the nursing note states which was upper back pain) HISTORY OF PRESENT ILLNESS: Patient is a 67-year-old female who is on home dialysis who presents with complaint of back spasms to the right lower back. She's had similar presentations in the past she was seen last December had a fairly extensive workup which included imaging studies and blood work and ultimately was felt that she was having muscle spasm and was treated as such with muscle relaxants and improved. She states that the symptoms began yesterday where she's having twinges of pain and spasm. She's been taking hydromorphone every 4 hours along with a "muscle relaxant" which they believe is Valium without significant relief in symptoms. Patient was supposed to have dialysis last evening however because of the pain and muscle spasms they held off on doing that. She denies any fevers or chills she denies chest pain or shortness of breath. She denies any abdominal pain. Patient is oliguric but complains of no symptoms. Currently the patient states the pain level was about a 3 at rest but at most and it gets to be a 9 or 10. REVIEW OF SYSTEMS: Respiratory: No cough, no dyspnea. Cardiovascular: No chest pain, no palpitations. Gastrointestinal: No vomiting, no abdominal pain. Musculoskeletal: Lower back pain Allergies: Coded Allergies: Gadolinium-Containing Contrast Medi (Verified Allergy, Severe, 05/07/18) Home Meds Active Scripts Methocarbamol (ROBAXIN-750) 750 Mg Tablet, 1500 MG PO TID for Muscle Relaxant, #15 TAB 0 Refills Prov:BILLY WOOTEN MD 05/07/18 Ketorolac Tromethamine (KETOROLAC TROMETHAMINE) 10 Mg Tab, 10 MG PO Q6H for PAIN, #30 TAB 0 Refills Prov:BILLY WOOTEN MD 05/07/18 Reported Medications Tizanidine Hcl (TIZANIDINE HCL) 4 Mg Capsule, 4 MG PO Q4H, CAPSULE 05/07/18 Polyvinyl Alcohol/Povidone/Pf (REFRESH CLASSIC EYE DROPS) 1 Each Droperette, 1 EACH OP 05/07/18 Mv,Fe/Fa/D3/Om-3/Dha/Epa/Fish (PRORENAL QD SOFTGEL) 1 Each Capsule, 1 EACH PO, CAPSULE 05/07/18 Insulin Glargine,Hum.rec.anlog (Basaglar Kwikpen U-100) 100 Unit/Ml (3 Ml) Insuln.pen 05/07/18 Sucroferric Oxyhydroxide (Velphoro) 500 Mg Tab.chew, 500 MG PO TIDAC 01/06/18 Pregabalin (LYRICA) 150 Mg Capsule, 150 MG PO QPM, CAPSULE 01/06/18 Pregabalin (LYRICA) 75 Mg Capsule, 75 MG PO QAM, CAPSULE 01/06/18 Hydromorphone Hcl (DILAUDID) 2 Mg Tablet, 2 MG PO BID PRN for PAIN 01/06/18 Heparin Sodium,Porcine/Pf (Heparin 1,000 Unit/10 (100/ml)) 1,000 Unit/10 Ml (100 Unit/Ml) Syringe, 3000 UNITS IVPB BEFORE DIALYSIS 01/06/18 Rrtej-J-Ykssoplattksn (Beano) 150 Unit Tablet, 300 MG PO TIDAC 01/06/18 Acetaminophen (TYLENOL) 325 Mg Tablet, 650 MG PO PRN PRN for PAIN, TAB 01/06/18 Midodrine Hcl (MIDODRINE HCL) 5 Mg Tablet, 10 MG PO 3XW Take Sunday, Sunday, and Sunday before dialysis treatment 10/25/16 Krill Oil/[place]-3/Dha/Epa (OMEGA-3 KRILL OIL SOFTGEL) 1 Each Capsule, 1 EACH PO DAILY, CAPSULE 07/02/16 Insulin Aspart 100 Un/Ml Pen (NOVOLOG FLEXPEN) 100 Unit/1 Ml Insuln.pen, 15-20 UNIT SQ sliding scale 08/17/15 Oxygen (OXYGEN) Inha, 2 L INH DAILY, L 2L AT NIGHT WITH CPAP 04/22/15 Discontinued Reported Medications Insulin Glargine 100 Un/Ml Pen (LANTUS SOLOSTAR PEN) 100 Unit/1 Ml Insuln.pen, 20 UNIT SQ QHS, ML 01/06/18 Multivitamin (MULTI VITAMIN DAILY) 1 Each Tablet, 1 EACH PO DAILY 04/29/14 Past Medical/Surgical History Patient is a type II diabetic history of pelvic fracture, history of dialysis. Hx Smoking: No Smoking Status: Never Smoker Exposure to Second Hand Smoke?: No Hx Substance Use Disorder: No Hx Alcohol Use: No Constitutional Vital Sign - Last 24 Hours 05/07/18 05/07/18 05/07/18 05/07/18 06:30 06:33 06:40 07:00 Temp 97.6 Pulse ??? 64 58 Resp 18 B/P (MAP) 114/31 114/31 (58) 99/42 (61) Pulse Ox 97 99 O2 Delivery Room Air 05/07/18 05/07/18 05/07/18 07:30 07:55 08:00 Pulse 60 57 B/P (MAP) 59/23 (35) 104/26 (52) Pulse Ox 98 99 Physical Exam General Appearance: The patient is alert, has no immediate need for airway protection and no signs of toxicity. Elevated body mass index Eyes: Pupils equal and round no pallor or injection. ENT, Mouth: Mucous membranes are moist. Respiratory: There are no retractions, lungs are clear to auscultation. Cardiovascular: Regular rate and rhythm. Gastrointestinal: Abdomen is protuberant but soft soft and non tender, no masses, bowel sounds normal. Neurological: Awake and alert Skin: Warm and dry, no rashes. Musculoskeletal: Neck is supple non tender. Patient has muscle spasm that is reproducible to the right paraspinal muscle group. lower extremities nontender, nonswollen and are at baseline range of motion (pt with minimal flexion of hips; can flex knees and ankles. distal pulses 2+ [ ] Medical Decision Making ED Course/Re-evaluation ED Course 05/07/2018 7:21:50 am a discussion with patient and with regard to management. We've agreed to do a trial of intramuscular Toradol and Norflex. If this does not provide significant relief we have decided that we could try trigger point injection of bupivicaine. Patient and are in agreement Re-evaluation 05/07/2018 8:04:36 am patient did get some pain relief with Norflex and Toradol and was sleeping comfortably when she does move she feels some pain she was a greeable to trying a trigger point injection. Trigger point injection procedure the area of maximal tenderness was identified and the skin was prepped with topical antiseptic. And then at 2 separate sites 2 mL of 0.5%. bupivicaine were injected into the muscle. 05/07/2018 8:17:09 am she is sleeping comfortably at this time will discharge home. Decision to Disposition Date: May 07, 2018 Decision to Disposition Time: 08:17 Depart Departure Latest Vital Signs Vital Signs Date Time Temp Pulse Resp B/P (MAP) Pulse Ox O2 Delivery O2 Flow Rate FiO2 05/07/18 08:00 57 99 05/07/18 07:55 104/26 (52) 05/07/18 06:33 97.6 18 Room Air Impression: Primary Impression: Acute back pain Condition: Improved Disposition: HOME OR SELF-CARE Referrals: AUGUSTINE LOVE MD (PCP) New Scripts Methocarbamol (ROBAXIN-750) 750 Mg Tablet 1500 MG PO TID for Muscle Relaxant, #15 TAB 0 Refills Prov: BILLY WOOTEN MD 05/07/18 Ketorolac Tromethamine (KETOROLAC TROMETHAMINE) 10 Mg Tab 10 MG PO Q6H for PAIN, #30 TAB 0 Refills Prov: BILLY WOOTEN MD 05/07/18 Patient Instructions: Muscle Spasm (ED) Additional Instructions: Discontinue use of tizanidine Use ketoralac (tordadol) 10 mg every 6 hours as needed for pain; may use hydromorphone previously prescribed if pain is not relieved after 1 hour Use Robaxin (methocarbamol) every 8 hours as needed for muscle spasm. Use heat and ice in a rotating manor to area of maximal tenderness Problem Qualifiers Primary Impression: Acute back pain Back pain location: low back pain Back pain laterality: right Sciatica presence: without sciatica Qualified Codes: M54.5 - Low back pain BILLY WOOTEN MD May 07, 2018 07:21
[2018-05-07] MEDS ORDERED: MV,F1CAP PO (07:24)
[2018-05-07] MEDS ORDERED: INSU100I10 (07:24)
[2018-05-07] MEDS ORDERED: TIZA4CAP3 PO (07:24)
[2018-05-07] MEDS ORDERED: POLY1DRO10 OP (07:24)
[2018-05-07] MEDS ORDERED: KETOROLAC 60 MG/2 ML VIAL IM ONE (07:25)
[2018-05-07] MEDS ORDERED: ORPHENADRINE 60MG/2ML INJ IM ONE (07:25)
[2018-05-07 07:55] VITALS: BP 104/26
[2018-05-07] MEDS ORDERED: KET10 PO (08:08)
[2018-05-07] MEDS ORDERED: METH-543 PO (08:08)
== END 2018-05-07 08:25 | disposition home or self-care (01) ==
LOC: ER 07:31
DX: M54.5 Low back pain (principal)
CPT/HCPCS: 20552; 96372; 99283; J1885; J2360

== ENCOUNTER 2018-10-20 21:23 | Emergency (ER) | payer MEDICARE, MEDICAID ==
[2015-09-18 10:56] VITALS: Wt 104.3 kg
[~2018-10-20 21:23] MED LIST changes: -AMLO-111 PO; +AMLO-125 PO; +CHOL200022 PO; -CHOL200085 PO; +INSU100I10; +KET10 PO; +MV,F1CAP PO; +POLY1DRO10 OP; +TIZA4CAP3 PO
[2018-10-20 22:02] VITALS: BP 119/42
--- NOTE | 2018-10-20 22:04 | ER Report ---
History and Physical Time Seen By MD: 22:04 HPI/ROS CHIEF COMPLAINT: cold symptoms, cough HISTORY OF PRESENT ILLNESS: This is a 68 year old female. She has had cough recent, becoming more wet sounding and mildly productive. Has mild shortness of breath. Concerned bout possibly developing pneumonia and wanted to get checked out. No nausea or vomiting. No chest pain. Allergies: Coded Allergies: Gadolinium-Containing Contrast Medi (Verified Allergy, Severe, 10/20/18) Home Meds Active Scripts Methocarbamol (ROBAXIN-750) 750 Mg Tablet, 1500 MG PO TID for Muscle Relaxant, #15 TAB 0 Refills Prov:BILLY WOOTEN MD 05/07/18 Ketorolac Tromethamine (KETOROLAC TROMETHAMINE) 10 Mg Tab, 10 MG PO Q6H for PAIN, #30 TAB 0 Refills Prov:BILLY WOOTEN MD 05/07/18 Reported Medications Tizanidine Hcl (TIZANIDINE HCL) 4 Mg Capsule, 4 MG PO Q4H, CAPSULE 05/07/18 Polyvinyl Alcohol/Povidone/Pf (REFRESH CLASSIC EYE DROPS) 1 Each Droperette, 1 EACH OP 05/07/18 Mv,Fe/Fa/D3/Om-3/Dha/Epa/Fish (PRORENAL QD SOFTGEL) 1 Each Capsule, 1 EACH PO, CAPSULE 05/07/18 Insulin Glargine,Hum.rec.anlog (Basaglar Kwikpen U-100) 100 Unit/Ml (3 Ml) Insuln.pen 05/07/18 Sucroferric Oxyhydroxide (Velphoro) 500 Mg Tab.chew, 500 MG PO TIDAC 01/06/18 Pregabalin (LYRICA) 150 Mg Capsule, 150 MG PO QPM, CAPSULE 01/06/18 Pregabalin (LYRICA) 75 Mg Capsule, 75 MG PO QAM, CAPSULE 01/06/18 Hydromorphone Hcl (DILAUDID) 2 Mg Tablet, 2 MG PO BID PRN for PAIN 01/06/18 Heparin Sodium,Porcine/Pf (Heparin 1,000 Unit/10 (100/ml)) 1,000 Unit/10 Ml (100 Unit/Ml) Syringe, 3000 UNITS IVPB BEFORE DIALYSIS 01/06/18 Bukgu-G-Lshefhtuhthtt (Beano) 150 Unit Tablet, 300 MG PO TIDAC 01/06/18 Acetaminophen (TYLENOL) 325 Mg Tablet, 650 MG PO PRN PRN for PAIN, TAB 01/06/18 Midodrine Hcl (MIDODRINE HCL) 5 Mg Tablet, 10 MG PO 3XW Take Sunday, Sunday, and Sunday before dialysis treatment 10/25/16 Krill Oil/[place]-3/Dha/Epa (OMEGA-3 KRILL OIL SOFTGEL) 1 Each Capsule, 1 EACH PO DAILY, CAPSULE 07/02/16 Insulin Aspart 100 Un/Ml Pen (NOVOLOG FLEXPEN) 100 Unit/1 Ml Insuln.pen, 15-20 UNIT SQ sliding scale 08/17/15 Oxygen (OXYGEN) Inha, 2 L INH DAILY, L 2L AT NIGHT WITH CPAP 04/22/15 Reviewed Nurses Notes: Yes Hx Smoking: No Smoking Status: Never Smoker Exposure to Second Hand Smoke?: No Hx Substance Use Disorder: No Hx Alcohol Use: No Constitutional Vital Sign - Last 24 Hours 10/20/18 10/20/18 10/20/18 10/20/18 21:57 22:02 22:03 22:08 Temp 97.9 Pulse 69 70 67 Resp 20 B/P (MAP) 119/42 119/42 (67) Pulse Ox 93 79 98 O2 Delivery Nasal Cannula 10/20/18 10/20/18 10/20/18 10/20/18 22:13 22:18 22:23 22:53 Pulse 67 67 66 70 Pulse Ox 97 99 98 99 10/20/18 10/21/18 23:53 00:10 Pulse 70 69 Pulse Ox 99 99 Physical Exam General Appearance: Alert, no acute distress. Eyes: Pupils equal and round no injection. ENT: Normal oral mucosa. Moist mucous membranes Normal posterior oropharynx. Mild rhinorrhea. Tympanic membranes are normal. Neck: Neck is supple and non tender. Respiratory: Chest is non tender, lungs are clear to auscultation. Cardiac: regular rate and rhythm DIFFERENTIAL DIAGNOSIS: After history and physical exam differential diagnosis was considered for cough, will check influenza and chest x-ray. Medical Decision Making Data Points Laboratory Hematology Test 10/20/18 22:10 Influenza Virus Type A (PCR) Negative (NEGATIVE) Influenza Virus Type B (PCR) Negative (NEGATIVE) Chemistry Test 10/20/18 22:10 Influenza Virus Type A (PCR) Negative (NEGATIVE) Influenza Virus Type B (PCR) Negative (NEGATIVE) EKG/Imaging Imaging TWO VIEW CHEST 10/20/2018 10:09 PM. INDICATION: Cough, lower oxygen. COMPARISON: 02/19/2018 FINDINGS: Lungs are well-expanded. The lungs are clear. No pneumothorax or pleural effusion. Heart size is normal. IMPRESSION: No acute abnormality. Report Dictated By: Olu Hdz MD at 10/20/2018 11:46 PM ED Course/Re-evaluation ED Course Influenza negative. No acute problems noted on chest xray. Decision to Disposition Date: October 21, 2018 Decision to Disposition Time: 00:26 Depart Departure Latest Vital Signs Vital Signs Date Time Temp Pulse Resp B/P (MAP) Pulse Ox O2 Delivery O2 Flow Rate FiO2 10/21/18 00:10 69 99 10/20/18 22:02 119/42 (67) 10/20/18 21:57 97.9 20 Nasal Cannula Impression: Primary Impression: Upper respiratory infection Condition: Improved Disposition: HOME OR SELF-CARE Referrals: AUGUSTINE LOVE MD (PCP) Patient Instructions: Upper Respiratory Infection (ED) Additional Instructions: At this point it appears that you have a viral upper respiratory infection. Rest and increase fluid intake. If needed, you can increase your oxygen level. Follow-up with your primary care provider this week for reevaluation. Problem Qualifiers Primary Impression: Upper respiratory infection URI type: unspecified viral URI Qualified Codes: J06.9 - Acute upper respiratory infection, unspecified JANE HERNANDEZ MD October 20, 2018 22:04
[2018-10-20] MEDS ORDERED: NS(*) 0.9% 1000 ML BAG 1,000 ML IV ONE (22:35)
[2018-10-20] MEDS ORDERED: methylPREDNIS SUCC 125 MG/2ML IVP ONE (22:35)
--- NOTE | 2018-10-20 23:51 | RADIOLOGY IMAGING REPORT ---
FACILITY: [facility] PATIENT NAME: Lizbeth Madrid : 1950 MR: [id number] V: [id number] EXAM DATE: ORDERING PHYSICIAN: JANE HERNANDEZ TECHNOLOGIST: Location: [facility] - [place] Patient: Lizbeth Madrid : 1950 Visit/Account:[id number] Date of Sevice: 10/20/2018 TWO VIEW CHEST 10/20/2018 10:09 PM. INDICATION: Cough, lower oxygen. COMPARISON: 02/19/2018 FINDINGS: Lungs are well-expanded. The lungs are clear. No pneumothorax or pleural effusion. Heart size is normal. IMPRESSION: No acute abnormality. Report Dictated By: Olu Hdz MD at 10/20/2018 11:46 PM Report E-Signed By: Olu Hdz MD at 10/20/2018 11:48 PM WSN:[id number]
== END 2018-10-21 00:40 | disposition home or self-care (01) ==
LOC: ER 22:08
DX: J06.9 Acute upper respiratory infection, unspecified (principal)
CPT/HCPCS: 71046; 87502; 99283

== ENCOUNTER → 2018-11-19 | Outpatient (CLI) | payer MEDICARE, MEDICAID ==
[2015-09-18 10:56] VITALS: BMI 42.7
[~2018-11-19] MED LIST changes: +BARIUM SULFATE 176 GM BTL PO ONE; +BARIUM SULFATE 340 GM POWD ONE; -BUM2 PO; -BUME1TAB19 PO; +BUME1TAB21 PO; +BUME2TAB17 PO; +CALC667T PO; -CALC667T3 PO; +LOPE2CAP15
--- NOTE | 2018-11-19 14:56 | RADIOLOGY IMAGING REPORT ---
FACILITY: [facility] - [place] PATIENT NAME: Lizbeth Madrid : 1950 MR: [id number] V: [id number] EXAM DATE: ORDERING PHYSICIAN: AUGUSTINE CARRASCO TECHNOLOGIST: [place] [facility] [place]: Lizbeth Madrid : 1950 Visit/Account:[id number] Date of Sevice: 11/19/2018 Exam type: ESOPHAGRAM History: Esophageal dysphasia Comparison: April 08, 2012. Findings: Study was limited as the patient was not able to stand for the examination. The patient could only t pritesh several small sips of thin barium through a straw while laying in an RPO position with the head o f the table slightly elevated. Esophagus was never ideally distended with barium. Extensive tertiar y waves and retrograde movement of barium was noted throughout the esophagus. A small amount of jennifer um did enter the stomach although the lower esophageal sphincter was not ideally evaluated. On sever al images it did appear to be quite narrow however. Dose area product 447.60 micro-Montalvo per meter sq uared IMPRESSION: 1. Very limited study as described above. Extensive tertiary waves and retrograde movement of barium was noted throughout the esophagus. The l ower esophageal sphincter was not well evaluated although on several images it did appear to be quite narrowed. Endoscopy may be helpful for further evaluation Report Dictated By: Malathi Michel MD at 11/19/2018 2:47 PM Report E-Signed By: Malathi Michel MD at 11/19/2018 2:51 PM WSN:[id number]
== END ==
LOC: RAD 00:32
PROVIDERS: ATTEND Surgery
DX: R13.10 Dysphagia, unspecified (principal)
CPT/HCPCS: 74220

== ENCOUNTER 2018-12-04 01:42 | Day surgery (SDC) | payer MEDICARE, MEDICAID ==
[2015-09-18 10:56] VITALS: Ht 162.6 cm; Wt 103.4 kg
[~2018-12-04] VITALS: Ht 162.6 cm; Wt 103.4 kg
[~2018-12-04 01:42] MED LIST changes: -BARIUM SULFATE 176 GM BTL PO ONE; -BARIUM SULFATE 340 GM POWD ONE
[2018-12-04] MEDS ORDERED: NS(*) 0.9% 500 ML BAG 500 ML IV PRN (06:30)
[2018-12-04] MEDS ORDERED: LIDOCAINE/SOD BICARB 8.4% SYR ID ONE (06:30)
[2018-12-04 06:34] VITALS: BP 115/48
[2018-12-04] MEDS ORDERED: PROPOFOL EMUL(*) 10MG/ML 20 ML 40 ML ONE (06:54)
[2018-12-04 08:36] VITALS: BP 111/49
--- NOTE | 2018-12-04 08:40 | Short(Outpt) Discharge Summary ---
Discharge Summary Reason for Hosp/Final Diag: (1) Dysphagia Status: Chronic Hospital Course & Plan: EGD with bougie dilation completed without problems. Departure Discharge to: Home, Self Care Discharge Instructions Home Meds Reported Medications Loperamide HCl (Imodium A-D) 2 Mg Capsule 11/05/18 Polyvinyl Alcohol/Povidone/Pf (REFRESH CLASSIC EYE DROPS) 1 Each Droperette, 1 EACH OP 05/07/18 Mv,Fe/Fa/D3/Om-3/Dha/Epa/Fish (PRORENAL QD SOFTGEL) 1 Each Capsule, 1 EACH PO, CAPSULE 05/07/18 Insulin Glargine,Hum.rec.anlog (Basaglar Kwikpen U-100) 100 Unit/Ml (3 Ml) Insuln.pen 05/07/18 Sucroferric Oxyhydroxide (Velphoro) 500 Mg Tab.chew, 500 MG PO TIDAC 01/06/18 Pregabalin (LYRICA) 150 Mg Capsule, 150 MG PO QPM, CAPSULE 01/06/18 Pregabalin (LYRICA) 75 Mg Capsule, 75 MG PO QAM, CAPSULE 01/06/18 Hydromorphone Hcl (DILAUDID) 2 Mg Tablet, 2 MG PO BID PRN for PAIN 01/06/18 Heparin Sodium,Porcine/Pf (Heparin 1,000 Unit/10 (100/ml)) 1,000 Unit/10 Ml (100 Unit/Ml) Syringe, 3000 UNITS IVPB BEFORE DIALYSIS 01/06/18 Acetaminophen (TYLENOL) 325 Mg Tablet, 650 MG PO PRN PRN for PAIN, TAB 01/06/18 Midodrine Hcl (MIDODRINE HCL) 5 Mg Tablet, 10 MG PO 3XW Take Sunday, Sunday, and Sunday before dialysis treatment 10/25/16 Krill Oil/[place]-3/Dha/Epa (OMEGA-3 KRILL OIL SOFTGEL) 1 Each Capsule, 1 EACH PO DAILY, CAPSULE 07/02/16 Insulin Aspart 100 Un/Ml Pen (NOVOLOG FLEXPEN) 100 Unit/1 Ml Insuln.pen, 15-20 UNIT SQ sliding scale 08/17/15 Oxygen (OXYGEN) Inha, 2 L INH DAILY, L 2L AT NIGHT WITH CPAP 04/22/15 Discontinued Reported Medications Yusfv-V-Vjhwelfszifye (Beano) 150 Unit Tablet, 300 MG PO TIDAC 01/06/18 Diet: Regular Activity: As Tolerated Special Instructions: Your upper endoscopy was completed without problems and I dilated your esophagus. Your esophagus and stomach show signs of poor muscular function as evidenced that your esophagus was lax and had curves as opposed to being a straight tube and your stomach still had some food left in it. Because of this, eat slowly, don't take bites any larger than your thumbnail, and chew thoroughly. Please call my office if you are having any issues or concerns and I'll be happy to see you if you're having continued problems. Problem Qualifiers (1) Dysphagia: Dysphagia type: esophageal phase Qualified Codes: R13.10 - Dysphagia, unspecified AUGUSTINE CARRASCO MD Dec 04, 2018 08:40
[2018-12-04 09:12] VITALS: BP 119/61
--- NOTE | 2018-12-04 09:30 | NUR ---
09- SBAR FROM [facility]. WENT IN TO GET VITAL SIGNS AND PT. STATES THAT SHE IS READY TO GO SO ORTHOSTATICS PREFORMED. PT. IS WHEELCHAIR BOUND SO NO STANDING BP DONE FOR SAFETY REASONS. 909- PT. GETTING DRESSED WITH HELP FROM . 916- DISCHARGE INSTRUCTIONS GONE OVER WITH PT AND . UNDERSTANDING STATED. 919- IV DC'D WITH CATH INTACT AND PRESSURE DRESSING APPLIED. 924- PT. ACCOMPANIED TO CAFETERIA FOR BREAKFAST BY [facility] TEJEDA AND .
== END 2018-12-04 09:25 | disposition home or self-care (01) ==
LOC: OR 01:42
PROVIDERS: ATTEND Surgery
DX: K31.89 Other diseases of stomach and duodenum (principal)
CPT/HCPCS: 36415; 43248; J2704; J7040; 82310; 82374; 82435; 82565; 82947; 84132; 84295; 84520

== ENCOUNTER 2019-01-09 10:36 | Emergency (ER) | payer MEDICARE, MEDICAID ==
[2015-09-18 10:56] VITALS: Wt 103.4 kg
[~2019-01-09 10:36] MED LIST changes: -ORP100 PO
--- NOTE | 2019-01-09 11:00 | ER Report ---
History and Physical Time Seen By MD: 10:56 Hx. of Stated Complaint: back pain HPI/ROS CHIEF COMPLAINT: Back pain HISTORY OF PRESENT ILLNESS: 68-year-old female patient presents to emergency room with complaint of low back pain. Patient states that she's been having pain for the past 24 hours. She states prior to that she was having a 24-hour period where she was having significant amounts of her normal back pain. She describes their normal back pain as a tightness, like something grabbed onto her back. She states she does see a pain specialist for that, and takes hydromorphone 2 mg for that. She states that she gets 5 tabs a month for that. She states that she had used for the last 24 hours for her normal back pain. She states that this back pain feels more like a tearing. She states that the pain is in the low back. She states that any type of movement seems to make it worse. She denies any loss of bowel or bladder control. She denies any saddle paresthesia. Patient states that she has not had any injury to the back. States she is just lying in bed when the pain started. REVIEW OF SYSTEMS: Respiratory: No cough, no dyspnea. Cardiovascular: No chest pain, no palpitations. Gastrointestinal: No vomiting, no abdominal pain. Musculoskeletal: As noted above Allergies: Coded Allergies: Gadolinium-Containing Contrast Medi (Verified Allergy, Severe, 01/09/19) Home Meds Active Scripts Orphenadrine Citrate (ORPHENADRINE CITRATE) 100 Mg Tabsr, 100 MG PO BID PRN for MUSCLE SPASMS, #20 TAB.SR Prov:RADHIKA PENA 01/09/19 Omeprazole (OMEPRAZOLE) 40 Mg Capsule., 40 MG PO QDAY for 30 Days, #30 CAP 1 Refill Prov:SYLVIA GONZALEZ JR, MD 12/20/18 Reported Medications Loperamide HCl (Imodium A-D) 2 Mg Capsule 11/05/18 Polyvinyl Alcohol/Povidone/Pf (REFRESH CLASSIC EYE DROPS) 1 Each Droperette, 1 EACH OP 05/07/18 Mv,Fe/Fa/D3/Om-3/Dha/Epa/Fish (PRORENAL QD SOFTGEL) 1 Each Capsule, 1 EACH PO, CAPSULE 05/07/18 Insulin Glargine,Hum.rec.anlog (Basaglar Kwikpen U-100) 100 Unit/Ml (3 Ml) Insuln.pen 05/07/18 Sucroferric Oxyhydroxide (Velphoro) 500 Mg Tab.chew, 500 MG PO TIDAC 01/06/18 Pregabalin (LYRICA) 150 Mg Capsule, 150 MG PO QPM, CAPSULE 01/06/18 Pregabalin (LYRICA) 75 Mg Capsule, 75 MG PO QAM, CAPSULE 01/06/18 Hydromorphone Hcl (DILAUDID) 2 Mg Tablet, 2 MG PO BID PRN for PAIN 01/06/18 Heparin Sodium,Porcine/Pf (Heparin 1,000 Unit/10 (100/ml)) 1,000 Unit/10 Ml (100 Unit/Ml) Syringe, 3000 UNITS IVPB BEFORE DIALYSIS 01/06/18 Acetaminophen (TYLENOL) 325 Mg Tablet, 650 MG PO PRN PRN for PAIN, TAB 01/06/18 Midodrine Hcl (MIDODRINE HCL) 5 Mg Tablet, 10 MG PO 3XW Take Sunday, Sunday, and Sunday before dialysis treatment 10/25/16 Krill Oil/[place]-3/Dha/Epa (OMEGA-3 KRILL OIL SOFTGEL) 1 Each Capsule, 1 EACH PO DAILY, CAPSULE 07/02/16 Insulin Aspart 100 Un/Ml Pen (NOVOLOG FLEXPEN) 100 Unit/1 Ml Insuln.pen, 15-20 UNIT SQ sliding scale 08/17/15 Oxygen (OXYGEN) Inha, 2 L INH DAILY, L 2L AT NIGHT WITH CPAP 04/22/15 Past Medical/Surgical History Patient has a past medical history of congestive heart failure, hyperlipidemia, pneumonia, stage IV renal failure, dialysis, neuropathy to feet and hands, osteoporosis, arthritis, for fracture, pelvis fracture, chronic back pain, diabetes. Patient has a surgical history of colostomy, partial colectomy, EGD with dilation, tonsillectomy. Patient has a family medical history of cancer, CAD, stroke, diabetes. Reviewed Nurses Notes: Yes Hx Smoking: No Smoking Status: Never Smoker Exposure to Second Hand Smoke?: No Hx Substance Use Disorder: No Hx Alcohol Use: No Constitutional Vital Sign - Last 24 Hours 01/09/19 01/09/19 01/09/19 01/09/19 10:36 10:41 10:41 11:00 Temp 97.6 Pulse 82 80 Resp 13 B/P (MAP) 97/69 158/60 (92) 165/57 (93) Pulse Ox 93 96 O2 Delivery Room Air 01/09/19 01/09/19 01/09/19 11:06 12:00 12:06 Pulse 88 81 B/P (MAP) 112/35 (60) Pulse Ox 94 97 Physical Exam General Appearance: The patient is alert, has no immediate need for airway protection and no current signs of toxicity. Respiratory: Chest is non tender, lungs are clear to auscultation. Cardiac: regular rate and rhythm Gastrointestinal: Abdomen is soft and non tender, no masses, bowel sounds normal. Musculoskeletal: Neck: Neck is supple and non tender. Back: Patient had no obvious tenderness to the lumbar spine, pain seemed be worse with paraspinal muscles. Extremities have full range of motion and are non tender. Skin: No rashes or lesions. DIFFERENTIAL DIAGNOSIS: After history and physical exam differential diagnosis was considered for back pain including but not limited to muscular pain, herniated disc, spine fracture, intra-abdominal causes and urinary tract infection. Medical Decision Making EKG/Imaging Imaging EXAMINATION: CT Lumbar spine without intravenous contrast HISTORY: Low back pain, no trauma COMPARISON: Radiographs November 03, 2016, CT July 02, 2016 TECHNIQUE: Axial images were obtained through the lumbar spine without IV contrast administration. Coronal and sagittal reformatted images were generated from the source data. One of the following dose optimization techniques was utilized in the performance of this exam: automated exposure control; adjustment of the mA and/or kV according to patient size; or use of iterative reconstruction technique. Specific details can be referenced in the facility's radiology CT exam operational policy. FINDINGS: Alignment: Normal. Vertebral bodies and posterior elements: Normal vertebral body heights. Moderate L5-S1 facet arthropathy noted. On the sagittal images there appears to be slight anterior offset of the S1 vertebral body in relation to S2 which appears new. No apparent sacral fracture lucency seen on any of the reformats. Disc Spaces: Normal. Hardware: None. Visualized chest/abdominal structures: Prominent uterus is only partially imaged. IMPRESSION: 1. Age-indeterminate slight new anterior offset of S1 in relation to S2. This may represent a chronic fracture deformity which is new compared to prior. An acute to subacute subtle sacral fracture cannot be entirely excluded given interval change. No discrete sacral fracture lucency identified. MR of the sacrum is recommended for further characterization to evaluate for underlying marrow edema which would be an expected finding in the setting of an acute or subacute fracture. 2. No acute lumbar spine abnormality. 3. Prominent uterus is only partially imaged and may reflect fibroid uterus. Pelvic ultrasound follow-up is recommended to confirm this represents the uterus and exclude the possibility of an adnexal/ovarian mass mimicking an enlarged uterus. Report Dictated By: Franc Arevalo MD at 01/09/2019 12:05 PM Report E-Signed By: Franc Arevalo MD at 01/09/2019 12:17 PM ED Course/Re-evaluation ED Course Patient is admitted in exam room, history and physical obtained. Differential diagnoses were considered. Examination lungs are clear, heart regular, abdomen was soft and nontender. Patient did have some very mild back pain to palpation to the paraspinal muscles. There is no obvious tenderness to the lumbar spine. A CT scan of the lumbar spine was done, which showed no acute fractures of the lumbar spine. There was a slight change in the area between S1 and S2 it was noted on the CT scan. I discussed this with the patient. She did have a fall proximally urine half ago. This possible infected be secondary to her fall that she had at that time. Patient did receive a dose of Norflex 60 mg IM here. Patient did have significant improvement in her pain with that. We will go ahead and discharge her home this time. Patient was given a prescription for Norflex that she can take twice a day. Patient verbalized understanding and agreement with plan. Decision to Disposition Date: Jan 09, 2019 Decision to Disposition Time: 12:29 Depart Departure Latest Vital Signs Vital Signs Date Time Temp Pulse Resp B/P (MAP) Pulse Ox O2 Delivery O2 Flow Rate FiO2 01/09/19 12:06 81 97 01/09/19 12:00 112/35 (60) 01/09/19 10:41 97.6 13 Room Air Impression: Primary Impression: Acute back pain Condition: Improved Disposition: HOME OR SELF-CARE Referrals: AUGUSTINE LOVE MD (PCP) New Scripts Orphenadrine Citrate (ORPHENADRINE CITRATE) 100 Mg Tabsr 100 MG PO BID PRN for MUSCLE SPASMS, #20 TAB.SR Prov: JEANRADHIKA FNP 01/09/19 Patient Instructions: Acute Low Back Pain (ED) Additional Instructions: Limit activity by pain. Get plenty of rest. Take the medication as needed for spasms. Return to the ER if condition worsens. Continue with your current medications. Follow up with your pain management as scheduled. Follow up with your primary care provider in the next week. Follow up for dialysis as scheduled. Problem Qualifiers Primary Impression: Acute back pain Back pain location: low back pain Back pain laterality: bilateral Sciatica presence: without sciatica Qualified Codes: M54.5 - Low back pain RADHIKA PENA Jan 09, 2019 11:00
[2019-01-09] MEDS ORDERED: ORPHENADRINE 60MG/2ML INJ IM ONE (11:15)
[2019-01-09 12:00] VITALS: BP 112/35
--- NOTE | 2019-01-09 12:25 | RADIOLOGY IMAGING REPORT ---
[place]AC[place] [facility] [place] NAME: Lizbeth Madrid : 1950 MR: [id number] V: [id number] EXAM DATE: ORDERING PHYSICIAN: RADHIKA PENA TECHNOLOGIST: Location: [facility] [place] Patient: Lizbeth Madrid : 1950 Visit/Account:[id number] Date of Sevice: 01/09/2019 EXAMINATION: CT Lumbar spine without intravenous contrast HISTORY: Low back pain, no trauma COMPARISON: Radiographs November 03, 2016, CT July 02, 2016 TECHNIQUE: Axial images were obtained through the lumbar spine without IV contrast administration. C oronal and sagittal reformatted images were generated from the source data. One of the following dose optimization techniques was utilized in the performance of this exam: autom ated exposure control; adjustment of the mA and/or kV according to patient size; or use of iterative reconstruction technique. Specific details can be referenced in the facility's radiology CT exam ope rational policy. FINDINGS: Alignment: Normal. Vertebral bodies and posterior elements: Normal vertebral body heights. Moderate L5-S1 facet arthropa thy noted. On the sagittal images there appears to be slight anterior offset of the S1 vertebral body in relation to S2 which appears new. No apparent sacral fracture lucency seen on any of the reformat s. Disc Spaces: Normal. Hardware: None. Visualized chest/abdominal structures: Prominent uterus is only partially imaged. IMPRESSION: 1. Age-indeterminate slight new anterior offset of S1 in relation to S2. This may represent a chronic fracture deformity which is new compared to prior. An acute to subacute subtle sacral fracture canno t be entirely excluded given interval change. No discrete sacral fracture lucency identified. MR of the sacrum is recommended for further characterization to evaluate for underlying marrow edema which would be an expected finding in the setting of an acute or subacute fracture. 2. No acute lumbar spine abnormality. 3. Prominent uterus is only partially imaged and may reflect fibroid uterus. Pelvic ultrasound follow -up is recommended to confirm this represents the uterus and exclude the possibility of an adnexal/ov eusebio mass mimicking an enlarged uterus. Report Dictated By: Franc Arevalo MD at 01/09/2019 12:05 PM Report E-Signed By: Franc Arevalo MD at 01/09/2019 12:17 PM WSN:[id number]
[2019-01-09] MEDS ORDERED: ORP100 PO (12:35)
== END 2019-01-09 13:06 | disposition home or self-care (01) ==
LOC: ER 11:13
DX: M54.5 Low back pain (principal)
CPT/HCPCS: 72131; 96372; 99284; J2360

== ENCOUNTER → 2019-01-09 | Outpatient (CLI) | payer MEDICARE, MEDICAID ==
[2015-09-18 10:56] VITALS: BMI 42.7
[~2019-01-09] MED LIST changes: +OMEP40CA48 PO; +ORP100 PO
== END ==
LOC: AMB 12:57
PROVIDERS: ATTEND Nurse Practitioner
DX: Z76.89 Persons encountering health services in other specified circumstances (principal)
CPT/HCPCS: A0425; A0428

== ENCOUNTER → 2019-01-09 | Outpatient (CLI) | payer MEDICARE, MEDICAID ==
[2015-09-18 10:56] VITALS: BMI 42.7
== END ==
LOC: AMB 10:15
PROVIDERS: ATTEND Nurse Practitioner
DX: M54.5 Low back pain (principal)
CPT/HCPCS: A0425; A0429

== ENCOUNTER 2019-01-10 07:56 | Outpatient (RCR) | payer MEDICARE, MEDICAID ==
[2015-09-18 10:56] VITALS: BMI 42.7
[~2019-01-10 07:56] MED LIST changes: +DIALYSIS ACETAMINOPHEN 325 MG PO PRN; +HEPARIN (PORCINE) 1000 UNIT/ML (DIALYSIS) IVP PRN; +LIDOCAINE/SOD BICARB 8.4% SYR SC PRN; +LOPERAMIDE HCL 2 MG CAP PO PRN; +ORP100 PO; +PROMETHAZINE HCL 25 MG TAB PO PRN; +diphenhydr DIALYSIS 50 MG/ML IVP PRN
[2019-01-10] MEDS: HEPARIN (PORCINE) 1000 UNIT/ML (DIALYSIS) IVP PRN (13:58)
[2019-01-13] MEDS: HEPARIN (PORCINE) 1000 UNIT/ML (DIALYSIS) IVP PRN (13:56)
[2019-01-15] MEDS: HEPARIN (PORCINE) 1000 UNIT/ML (DIALYSIS) IVP PRN (14:00)
[2019-01-17] MEDS: HEPARIN (PORCINE) 1000 UNIT/ML (DIALYSIS) IVP PRN (13:50)
[2019-01-20] MEDS: HEPARIN (PORCINE) 1000 UNIT/ML (DIALYSIS) IVP PRN (13:53)
[2019-01-22] MEDS: HEPARIN (PORCINE) 1000 UNIT/ML (DIALYSIS) IVP PRN (14:02)
[2019-01-24] MEDS ORDERED: RANI-325 PO (10:52)
== END 2019-01-22 17:00 | disposition home or self-care (01) ==
LOC: DIAL 07:56
PROVIDERS: ATTEND Internal Medicine Nephrology
DX: N17.9 Acute kidney failure, unspecified (principal); I95.0 Idiopathic hypotension; D63.1 Anemia in chronic kidney disease; I50.32 Chronic diastolic (congestive) heart failure; E11.22 Type 2 diabetes mellitus with diabetic chronic kidney disease; N18.6 End stage renal disease; Z72.0 Tobacco use; Z99.2 Dependence on renal dialysis; E78.5 Hyperlipidemia, unspecified; D50.0 Iron deficiency anemia secondary to blood loss (chronic); E66.9 Obesity, unspecified; I27.20 Pulmonary hypertension, unspecified; G47.30 Sleep apnea, unspecified; E46 Unspecified protein-calorie malnutrition; N25.81 Secondary hyperparathyroidism of renal origin; E83.39 Other disorders of phosphorus metabolism; Z79.4 Long term (current) use of insulin; T56.91 Toxic effect of unspecified metal, accidental (unintentional); D68.9 Coagulation defect, unspecified; E83.59 Other disorders of calcium metabolism; I13.11 Hypertensive heart and chronic kidney disease without heart failure, with stage 5 chronic kidney disease, or end stage renal disease
CPT/HCPCS: 90999